=== PATIENT | male | born 1965 | race Caucasian/White ===

== ENCOUNTER 2016-09-01 23:14 | Observation (INO) | payer SELFPAY ==
[2016-09-01 23:45] VITALS: RESP 16; TEMP 97.3
[2016-09-02] MEDS ORDERED: Lidocaine 1% Inj (20ml) INFIL ONE (00:20)
[2016-09-02] MEDS ORDERED: Tetanus/Diphtheria Toxoids 0.5 ml Syringe IM ONE ×2 (00:20→00:28)
[2016-09-02] MEDS ORDERED: Lidocaine 1% Inj (20ml) ONE (00:36)
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
--- NOTE | 2016-09-02 02:00 | CT ---
EXAM: CT Orbits Without Intravenous Contrast CLINICAL HISTORY: 51 years old, male; Pain; Eye pain; Left; Patient HX: 2-17-16. Sent to [facility]; Additional info: R/O fracture left orbit, S/P fall, ETOH TECHNIQUE: Axial computed tomography images of the orbits without intravenous contrast. This CT exam was performed using one or more of the following dose reduction techniques: automated exposure control, adjustment of the mA and/or kV according to patient size, and/or use of iterative reconstruction technique. Coronal and sagittal reformatted images were created and reviewed. COMPARISON: CT - ORBITS W/O CONTRAST 07/12/2015 12:11:29 AM FINDINGS: Orbits: See below. Sinuses: See below. Bones/joints: Question minimally displaced nasal fractures. There are plates securing old bilateral anterior maxillary sinus fractures. There are fractures of the postero-lateral murguia of both maxillary sinuses although these are age indeterminate given the absence of fluid within the maxillary sinuses. There are plates securing old fractures of both lateral orbital rims and the left superior orbital rim. No evidence for acute orbital fractures. The globes and retrobulbar structures appear intact bilaterally. Mild soft tissue swelling of the left periorbital region. Soft tissues: Unremarkable. IMPRESSION: 1. Question minimally displaced nasal fractures. 2. There are plates securing old bilateral anterior maxillary sinus fractures. 3. There are fractures of the postero-lateral murguia of both maxillary sinuses although these are age indeterminate given the absence of fluid within the maxillary sinuses. 4. There are plates securing old fractures of both lateral orbital rims and the left superior orbital rim. 5. No evidence for acute orbital fractures. The globes and retrobulbar structures appear intact bilaterally. Mild soft tissue swelling of the left periorbital region.
--- NOTE | 2016-09-02 02:01 | CT ---
EXAM: CT Head Without Intravenous Contrast CLINICAL HISTORY: 51 years old, male; Pain; Headache and other: Fall; Patient HX: 07-11-15; Additional info: Head injury S/P fall TECHNIQUE: Axial computed tomography images of the head/brain without intravenous contrast. This CT exam was performed using one or more of the following dose reduction techniques: automated exposure control, adjustment of the mA and/or kV according to patient size, and/or use of iterative reconstruction technique. COMPARISON: CT - HEAD W/O CONTRAST 07/12/2015 12:09:23 AM FINDINGS: Brain: There is mild prominence of ventricles and sulci, compatible with mild atrophy. There is no evidence of intracranial hemorrhage. No evidence of acute territorial infarction. No significant white matter disease. No edema. Ventricles: See above. Bones/joints: Unremarkable. No acute fracture. Soft tissues: Unremarkable. Sinuses: Unremarkable as visualized. No acute sinusitis. Mastoid air cells: Unremarkable as visualized. No mastoid effusion. IMPRESSION: 1. No evidence for acute intracranial abnormality or displaced calvarial fracture. 2. Additional incidental and/or chronic findings as described.
[2016-09-02 05:42] VITALS: BP 104/57; PULSE 91
[2016-09-02 06:15] VITALS: O2SAT 96
== END 2016-09-02 06:11 | disposition home or self-care (01) ==
LOC: C.ER 23:14 → C.9OBSV 09-02 02:00
PROVIDERS: ADMIT Emergency Medicine; ATTEND Emergency Medicine
DX: F10.120 Alcohol abuse with intoxication, uncomplicated (principal); Y90.9 Presence of alcohol in blood, level not specified; S01.112A Laceration without foreign body of left eyelid and periocular area, initial encounter; W19.XXXA Unspecified fall, initial encounter; Z68.21 Body mass index [BMI] 21.0-21.9, adult
CPT/HCPCS: 12013; 70450; 70480; 82948; 90471; 90714; 99285; G0378

== ENCOUNTER 2016-09-03 03:57 | Observation (INO) | payer SELFPAY ==
[2016-09-03 04:13] VITALS: BP 147/85; PULSE 101; TEMP 97.5; O2SAT 97
[2016-09-03 05:38] VITALS: RESP 18
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
== END 2016-09-03 06:29 | disposition home or self-care (01) ==
LOC: C.ER 03:57 → C.9OBSV 05:06
PROVIDERS: ADMIT Emergency Medicine; ATTEND Emergency Medicine
DX: F10.120 Alcohol abuse with intoxication, uncomplicated (principal); F41.9 Anxiety disorder, unspecified; J45.909 Unspecified asthma, uncomplicated
CPT/HCPCS: 82948; G0378

== ENCOUNTER 2016-12-27 14:53 | Emergency (ER) | payer SELFPAY ==
[2016-12-27 15:00] VITALS: BMI 27.8
[2016-12-27 15:04] VITALS: TEMP 97.7
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
[2016-12-27 18:52] VITALS: BP 110/67; PULSE 86; RESP 15; O2SAT 99
== END 2016-12-27 18:59 | disposition home or self-care (01) ==
LOC: C.ER 14:53
DX: F10.10 Alcohol abuse, uncomplicated (principal)

== ENCOUNTER 2017-04-13 21:53 | Emergency (ER) | payer SELFPAY ==
[2017-04-13 21:53] VITALS: BMI 27.8
[2017-04-13 23:14] VITALS: O2SAT 97
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
[2017-04-14 02:23] VITALS: RESP 20
[2017-04-14 05:55] VITALS: BP 136/76; PULSE 96; TEMP 98.2
== END 2017-04-14 06:13 | disposition home or self-care (01) ==
LOC: C.ER 21:53
DX: F10.129 Alcohol abuse with intoxication, unspecified (principal); Y90.9 Presence of alcohol in blood, level not specified

== ENCOUNTER 2017-09-25 15:48 | Emergency (ER) | payer MEDICARE ==
[2017-09-25 15:53] VITALS: BMI 23.4
[2017-09-25 16:06] VITALS: TEMP 97.7
--- NOTE | 2017-09-25 17:44 | C.PDOC ---
History Of Present Illness 52 year old male brought to ED by EMS for alcohol intoxication. Pt is well known to ED staff with multiple prior visits for similar complaints. Denies any active physical complaints at present time. Time Seen by Provider: 09/25/17 16:02 Chief Complaint (Nursing): Medical Clearance History Per: Patient History/Exam Limitations: no limitations Onset/Duration Of Symptoms: Days Current Symptoms Are (Timing): Still Present Past Medical History Reviewed: Historical Data, Nursing Documentation, Vital Signs Vital Signs: Last Vital Signs Temp 97.7 F 09/25/17 15:59 Pulse 80 09/25/17 18:18 Resp 18 09/25/17 18:18 BP 96/50 L 09/25/17 16:49 Pulse Ox 98 09/25/17 18:18 - Medical History PMH: Asthma, Back Problems, Fractures (rt. finger) Family History: States: Unknown Family Hx - Social History Hx Tobacco Use: No Hx Alcohol Use: Yes Hx Substance Use: No - Immunization History Hx Tetanus Toxoid Vaccination: No Hx Influenza Vaccination: No Hx Pneumococcal Vaccination: No Review Of Systems Except As Marked, All Systems Reviewed And Found Negative. Constitutional: Negative for: Fever, Chills Cardiovascular: Negative for: Chest Pain, Palpitations Respiratory: Negative for: Shortness of Breath Physical Exam - Physical Exam Appears: Non-toxic, No Acute Distress Skin: Warm, Dry Head: Atraumatic, Normacephalic Eye(s): bilateral: Normal Inspection Oral Mucosa: Moist, Other (EtOH on breath) Neck: Normal ROM, Supple Chest: Symmetrical Cardiovascular: Rhythm Regular Respiratory: Normal Breath Sounds, No Rales, No Rhonchi, No Wheezing Gastrointestinal/Abdominal: Soft, No Tenderness Extremity: Normal ROM Neurological/Psych: Oriented x3 ED Course And Treatment O2 Sat by Pulse Oximetry: 97 Pulse Ox Interpretation: Normal Medical Decision Making Medical Decision Making: Pt will be signed out to Dr. Vitale at 7PM, pending sobriety. Disposition - Disposition Disposition Time: 18:51 Condition: STABLE Forms: [facility] (Turkish) - Clinical Impression Clinical Impression: Alcohol intoxication - Scribe Statement The provider has reviewed the documentation as recorded by the Scribe KP All medical record entries made by the Scribe were at my direction and personally dictated by me. I have reviewed the chart and agree that the record accurately reflects my personal performance of the history, physical exam, medical decision making, and the department course for this patient. I have also personally directed, reviewed, and agree with the discharge instructions and disposition. Physician Patient Turnover Patient Signed Over To: Alba Vitale Handoff Comments: pending sobriety, reevaluation and disposition
[2017-09-26] VITALS: RESP 18
[2017-09-26 01:58] VITALS: BP 132/71; PULSE 81; O2SAT 100
== END 2017-09-26 01:58 | disposition home or self-care (01) ==
LOC: C.ER 15:48
DX: F10.129 Alcohol abuse with intoxication, unspecified (principal)

== ENCOUNTER 2017-10-24 18:27 | Emergency (ER) | payer MEDICARE, OTHER ==
[2017-10-24 18:28] VITALS: BMI 23.4
[2017-10-24 18:40] VITALS: RESP 18
--- NOTE | 2017-10-24 19:27 | C.PDOC ---
History Of Present Illness 52 y/o male brought in by EMS for public intoxication. As per EMS patient had become somewhat agitated en route. Upon arrival patient is calm and cooperative. He admits to drinking. Patient offers no physical complaints at this time. Denies any suicidal or homicidal ideation. Time Seen by Provider: 10/24/17 18:32 Chief Complaint (Nursing): Substance Abuse History Per: Patient History/Exam Limitations: intoxication Onset/Duration Of Symptoms: Hrs Current Symptoms Are (Timing): Still Present Modifying Factor(s): Alcohol Additional History Per: EMS Past Medical History Reviewed: Historical Data, Nursing Documentation, Vital Signs Vital Signs: Last Vital Signs Temp 97.8 F 10/24/17 18:36 Pulse 89 10/24/17 22:42 Resp 18 10/24/17 22:42 BP 128/86 10/24/17 22:42 Pulse Ox 97 10/24/17 22:42 - Medical History PMH: Asthma, Back Problems, Fractures (rt. finger) Other Surgeries: Right finger partial amputation Family History: States: Unknown Family Hx - Social History Hx Tobacco Use: No Hx Alcohol Use: Yes Hx Substance Use: No - Immunization History Hx Tetanus Toxoid Vaccination: No Hx Influenza Vaccination: No Hx Pneumococcal Vaccination: No Review Of Systems Except As Marked, All Systems Reviewed And Found Negative. Psych: Positive for: Other (ETOH intoxication) Physical Exam - Physical Exam Appears: Non-toxic, No Acute Distress, Other (alcohol on breath, appears intoxicated) Skin: Normal Color, Warm, Dry Head: Atraumatic, Normacephalic Eye(s): bilateral: Normal Inspection, PERRL, EOMI Nose: Normal Oral Mucosa: Moist Neck: Normal ROM, Supple Chest: Symmetrical Cardiovascular: Rhythm Regular, No Murmur Respiratory: Normal Breath Sounds, No Accessory Muscle Use Gastrointestinal/Abdominal: Soft, No Tenderness, No Distention Extremity: Bilateral: Atraumatic, Normal Color And Temperature, Normal ROM Pulses: Left Dorsalis Pedis: Normal, Right Dorsalis Pedis: Normal Neurological/Psych: Normal Speech, Other (Alert, awake, responsive to verbal stimuli) Gait: Steady ED Course And Treatment O2 Sat by Pulse Oximetry: 97 (RA) Pulse Ox Interpretation: Normal Medical Decision Making Medical Decision Making: Assessment: Alcohol Intoxication Initial Plan: * Blood sugar POC * Pending sobriety Finger stick is 88. Patient is resting comfortably, in no acute distress. Pending clinical sobriety. 1242 am - patient ambulatory without limitations and steady gait. Discharged home to follow up with medical clinic in 2 days. Disposition Counseled Patient/Family Regarding: Studies Performed, Diagnosis, Need For Followup - Disposition Referrals: [facility] at [facility] [Outside] Disposition: HOME/ ROUTINE Disposition Time: 00:43 Condition: IMPROVED Additional Instructions: follow up with medical clinic in 2 days call to make an appointment decrease alcohol use return to ER if symptoms worsens or progress Instructions: Alcohol Abuse and Alcoholism (DC) Forms: [facility] (Belarusian), General Discharge Instructions - Clinical Impression Clinical Impression: Alcohol intoxication - Scribe Statement The provider has reviewed the documentation as recorded by the Gricelda Kearns Provider Attestation: All medical record entries made by the Gricelda were at my direction and personally dictated by me. I have reviewed the chart and agree that the record accurately reflects my personal performance of the history, physical exam, medical decision making, and the department course for this patient. I have also personally directed, reviewed, and agree with the discharge instructions and disposition.
[2017-10-25 00:48] VITALS: BP 135/81; PULSE 70; TEMP 98.2; O2SAT 96
== END 2017-10-25 01:11 | disposition home or self-care (01) ==
LOC: C.ER 18:27
DX: F10.129 Alcohol abuse with intoxication, unspecified (principal)

== ENCOUNTER 2017-10-27 18:07 | Emergency (ER) | payer MEDICARE ==
[2017-10-27 18:08] VITALS: BMI 23.4
--- NOTE | 2017-10-27 20:26 | C.PDOC ---
History Of Present Illness Patient with history of chronic ETOH abuse presents to ED requesting a place to stay and in an acute ETOH intoxication. Patient denies fever, chills, nausea, trauma or any other complaints at this time. Time Seen by Provider: 10/27/17 20:25 Chief Complaint (Nursing): Substance Abuse History Per: Patient History/Exam Limitations: no limitations Onset/Duration Of Symptoms: Hrs Current Symptoms Are (Timing): Still Present Suicide/Self Injury Attempted (Context): None Modifying Factor(s): Alcohol Severity: Mild Pain Scale Rating Of: 2 Associated Symptoms: denies: Suicidal Thoughts, Suicidal Plan Involuntary Hold By: None Recent travel outside of the [place]: No Past Medical History Reviewed: Historical Data, Nursing Documentation, Vital Signs - Medical History PMH: Asthma, Back Problems, Fractures (rt. finger) Surgical History: No Surg Hx Family History: States: No Known Family Hx - Social History Hx Tobacco Use: No Hx Alcohol Use: Yes Hx Substance Use: Yes (unk) - Immunization History Hx Tetanus Toxoid Vaccination: No Hx Influenza Vaccination: No Hx Pneumococcal Vaccination: No Review Of Systems Constitutional: Negative for: Fever, Chills Cardiovascular: Negative for: Chest Pain Respiratory: Negative for: Shortness of Breath Gastrointestinal: Negative for: Nausea Psych: Positive for: Other (ETOH intoxication). Negative for: Suicidal ideation , Withdrawal Physical Exam - Physical Exam Appears: Non-toxic, No Acute Distress Skin: Warm, Dry, No Rash, Other (Vascular stasis skin changes) Head: Normacephalic Eye(s): bilateral: PERRL, EOMI Oral Mucosa: Moist Neck: Supple Cardiovascular: Rhythm Regular Respiratory: Normal Breath Sounds, No Rales, No Rhonchi, No Wheezing Gastrointestinal/Abdominal: Soft, No Tenderness, No Guarding, No Rebound Extremity: Pedal Edema (bilateral trace), Capillary Refill (<2 seconds), No Deformity Neurological/Psych: Oriented x3 ED Course And Treatment O2 Sat by Pulse Oximetry: 100 (RA) Pulse Ox Interpretation: Normal Disposition Counseled Patient/Family Regarding: Studies Performed, Diagnosis, Need For Followup - Disposition Referrals: [facility] at [facility] [Outside] Disposition Time: 20:25 Condition: FAIR Forms: [facility] (Telugu) - Clinical Impression Clinical Impression: Alcohol intoxication - Scribe Statement The provider has reviewed the documentation as recorded by the Scribe Jonathan Eng All medical record entries made by the Scribe were at my direction and personally dictated by me. I have reviewed the chart and agree that the record accurately reflects my personal performance of the history, physical exam, medical decision making, and the department course for this patient. I have also personally directed, reviewed, and agree with the discharge instructions and disposition.
[2017-10-27 22:16] VITALS: BP 114/70; PULSE 74; RESP 18; TEMP 97; O2SAT 98
== END 2017-10-28 00:05 | disposition home or self-care (01) ==
LOC: C.ER 18:07
DX: F10.129 Alcohol abuse with intoxication, unspecified (principal)

== ENCOUNTER 2017-10-30 16:52 | Emergency (ER) | payer MEDICARE ==
[2017-10-30 16:58] VITALS: BMI 24.3
--- NOTE | 2017-10-30 17:20 | C.PDOC ---
History Of Present Illness <Julianna Soliman - Last Filed: 10/30/17 18:57> <[place] - Last Filed: 10/30/17 21:33> 52 Y/O MALE PRESENTS TO ED IN AN ACUTE ETOH INTOXICATION. PATIENT HAS MULTIPLE PRIOR RECENT ED EVALUATIONS FOR SAME. LIMITED DUE TO CLINICAL CONDITION. LIMITED DUE TO CLIN COND ETOH INTOX. MULT PRIOR RECENT ER EVAL FOR SAME ROS UTO EXAM ATRAUM PSYCH INTOX, RESPONSE TO VERBAL STIM NEURO LIMITED NARD REMAINDER NEG (Julianna Soliman) History Per: EMS History/Exam Limitations: clinical condition Onset/Duration Of Symptoms: Hrs, Gradual Current Symptoms Are (Timing): Still Present Suicide/Self Injury Attempted (Context): None Modifying Factor(s): Alcohol <Julianna Soliman - Last Filed: 10/30/17 18:57> <[place] - Last Filed: 10/30/17 21:33> Time Seen by Provider: 10/30/17 16:57 Chief Complaint (Nursing): Substance Abuse Past Medical History Reviewed: Historical Data, Nursing Documentation, Vital Signs - Medical History PMH: Asthma, Back Problems, Fractures (rt. finger) Surgical History: No Surg Hx Family History: States: No Known Family Hx - Social History Hx Tobacco Use: No Hx Alcohol Use: Yes Hx Substance Use: Yes (unk) - Immunization History Hx Tetanus Toxoid Vaccination: No Hx Influenza Vaccination: No Hx Pneumococcal Vaccination: No <Julianna Soliman - Last Filed: 10/30/17 18:57> Vital Signs: Last Vital Signs Temp 98.2 F 10/30/17 21:10 Pulse 78 10/30/17 21:10 Resp 18 10/30/17 21:10 BP 120/72 10/30/17 21:10 Pulse Ox 95 10/30/17 21:10 Review Of Systems Review Of Systems: ROS cannot be obtained secondary to pt's inabilty to answer questions. <Julianna Soliman - Last Filed: 10/30/17 18:57> Physical Exam - Physical Exam Appears: Non-toxic, No Acute Distress Skin: Warm, Dry, No Rash Head: Atraumatic Eye(s): bilateral: Normal Inspection Oral Mucosa: Moist Chest: Symmetrical Cardiovascular: Rhythm Regular Respiratory: Normal Breath Sounds, No Rales, No Rhonchi, No Wheezing Gastrointestinal/Abdominal: Soft, No Tenderness, No Guarding, No Rebound Neurological/Psych: Other (Intoxicated, response to verbal stimuli) <Julianan Soliman - Last Filed: 10/30/17 18:57> ED Course And Treatment O2 Sat by Pulse Oximetry: 94 (RA) <Julianna Soliman - Last Filed: 10/30/17 18:57> Progress - Data Reviewed Data Reviewed: Lab, Old records <Julianna Soliman - Last Filed: 10/30/17 18:57> - Time Time: 21:32 (much improved, easily arousable) <Landon Bethea - Last Filed: 10/30/17 21:33> - Re-Evaluation Re-evaluation Note: 10/30/17 18:57 EXAM UNCH PRIOR, PERSIST INTOX. NARD (Julianna Soliman) Medical Decision Making <Julianna Soliman - Last Filed: 10/30/17 18:57> <Landon Bethea - Last Filed: 10/30/17 21:33> Medical Decision Making: signed over @ 1900, pt intox pending sobriety no w/u pending pt seen and evaluated initially difficult to arouse to painful stimulus/sternal rub 0; easily arousable to sternal rub (Landon Bethea) Disposition - Disposition Disposition Time: 19:00 <Julianna Soliman - Last Filed: 10/30/17 18:57> Doctor Will See Patient In The: Office Counseled Patient/Family Regarding: Studies Performed, Diagnosis <Landon Bethea - Last Filed: 10/30/17 21:33> - Disposition Disposition: HOME/ ROUTINE Condition: GOOD Forms: [facility] (German) - Clinical Impression Clinical Impression: Homelessness, Alcohol intoxication, Malingering - Scribe Statement The provider has reviewed the documentation as recorded by the Scribe <Julianna Soliman - Last Filed: 10/30/17 18:57> <Landon Bethea - Last Filed: 10/30/17 21:33> - Scribe Statement Jonathan Eng All medical record entries made by the Scribe were at my direction and personally dictated by me. I have reviewed the chart and agree that the record accurately reflects my personal performance of the history, physical exam, medical decision making, and the department course for this patient. I have also personally directed, reviewed, and agree with the discharge instructions and disposition. (Julianna Soliman) Physician Patient Turnover Patient Signed Over To: Landon Bethea Handoff Comments: FU DISPO <Julianna Soliman - Last Filed: 10/30/17 18:57>
[2017-10-30 21:40] VITALS: BP 103/66; PULSE 80; RESP 16; TEMP 98.1; O2SAT 96
== END 2017-10-30 22:01 | disposition home or self-care (01) ==
LOC: C.ER 16:52
DX: F10.129 Alcohol abuse with intoxication, unspecified (principal); Z76.5 Malingerer [conscious simulation]; Z59.0 Homelessness

== ENCOUNTER 2017-11-02 20:48 | Emergency (ER) | payer MEDICARE ==
[2017-11-02 20:48] VITALS: BMI 24.3
--- NOTE | 2017-11-02 21:30 | C.PDOC ---
History Of Present Illness 52 year old male is brought to the ED by EMS after being found intoxicated sleeping in [facility]. Patient admits to drinking alcohol today. Patient denies SI/HI, hallucinations, CP, SOB, abdominal pain. Time Seen by Provider: 11/02/17 21:26 Chief Complaint (Nursing): Substance Abuse History Per: Patient, EMS History/Exam Limitations: intoxication Onset/Duration Of Symptoms: Hrs Current Symptoms Are (Timing): Still Present Suicide/Self Injury Attempted (Context): None Modifying Factor(s): Alcohol Associated Symptoms: denies: Depression, Suicidal Thoughts, Suicidal Plan Involuntary Hold By: None Recent travel outside of the [place]: No Additional History Per: Patient, EMS Past Medical History Reviewed: Historical Data, Nursing Documentation, Vital Signs Vital Signs: Last Vital Signs Temp 97.8 F 11/03/17 03:15 Pulse 90 11/03/17 03:15 Resp 16 11/03/17 03:15 BP 113/75 11/03/17 03:15 Pulse Ox 97 11/03/17 03:15 - Medical History PMH: Asthma, Back Problems, Fractures (rt. finger) Surgical History: No Surg Hx Family History: States: Unknown Family Hx - Social History Hx Tobacco Use: No Hx Alcohol Use: Yes Hx Substance Use: No - Immunization History Hx Tetanus Toxoid Vaccination: No Hx Influenza Vaccination: No Hx Pneumococcal Vaccination: No Review Of Systems Constitutional: Negative for: Fever, Chills Cardiovascular: Negative for: Chest Pain Respiratory: Negative for: Shortness of Breath Gastrointestinal: Negative for: Vomiting, Abdominal Pain Neurological: Negative for: Weakness, Numbness, Headache Psych: Negative for: Depression, Suicidal ideation Physical Exam - Physical Exam Appears: Non-toxic, No Acute Distress Skin: Warm, Dry Head: Normacephalic Eye(s): bilateral: Normal Inspection Oral Mucosa: Moist Neck: Supple Chest: Symmetrical Cardiovascular: Rhythm Regular Respiratory: No Rales, No Rhonchi, No Wheezing Gastrointestinal/Abdominal: Soft, No Tenderness, No Guarding, No Rebound Extremity: No Tenderness, No Swelling Extremity: Bilateral: Atraumatic, Normal Color And Temperature, Normal ROM Neurological/Psych: Oriented x3, Normal Speech Gait: Steady ED Course And Treatment O2 Sat by Pulse Oximetry: 98 (ON RA) Pulse Ox Interpretation: Normal Reevaluation Time: 05:06 Reassessment Condition: Improved Disposition Counseled Patient/Family Regarding: Studies Performed, Diagnosis, Need For Followup - Disposition Referrals: [facility] at [facility] [Outside] Disposition: HOME/ ROUTINE Disposition Time: 21:26 Condition: FAIR Instructions: Alcohol Abuse and Alcoholism (DC) Forms: [facility] (Australian) - Clinical Impression Clinical Impression: Alcohol abuse, Alcohol intoxication - Scribe Statement The provider has reviewed the documentation as recorded by the Scribe Titus Soler All medical record entries made by the Scribe were at my direction and personally dictated by me. I have reviewed the chart and agree that the record accurately reflects my personal performance of the history, physical exam, medical decision making, and the department course for this patient. I have also personally directed, reviewed, and agree with the discharge instructions and disposition.
[2017-11-03 03:16] VITALS: BP 113/75; PULSE 90; RESP 16; TEMP 97.8
[2017-11-03 05:07] VITALS: O2SAT 98
== END 2017-11-03 05:27 | disposition home or self-care (01) ==
LOC: C.ER 20:48
DX: F10.129 Alcohol abuse with intoxication, unspecified (principal)

== ENCOUNTER 2017-11-08 21:26 | Emergency (ER) | payer MEDICARE ==
[2017-11-08 21:26] VITALS: BMI 24.3
--- NOTE | 2017-11-08 21:48 | C.PDOC ---
History Of Present Illness 52 year old male presents to the ED intoxicated looking for a place to spend the night. Patient admits to drinking alcohol today. Patient denies SI/HI, hallucinations, fever, chills, CP, SOB., and contrary to the triage note, patient denies any headache Time Seen by Provider: 11/08/17 21:47 History Per: Patient History/Exam Limitations: intoxication Onset/Duration Of Symptoms: Hrs Current Symptoms Are (Timing): Still Present Suicide/Self Injury Attempted (Context): None Modifying Factor(s): Alcohol Severity: None Associated Symptoms: denies: Depression, Suicidal Thoughts, Suicidal Plan Involuntary Hold By: None Recent travel outside of the [place]: No Additional History Per: Patient Past Medical History Reviewed: Historical Data, Nursing Documentation, Vital Signs Vital Signs: Last Vital Signs Temp 97.7 F 11/09/17 04:19 Pulse 84 11/09/17 04:19 Resp 19 11/09/17 04:19 BP 101/94 H 11/09/17 04:19 Pulse Ox 96 11/09/17 04:19 - Medical History PMH: Asthma, Back Problems, Fractures (rt. finger) Surgical History: No Surg Hx Family History: States: Unknown Family Hx - Social History Hx Tobacco Use: No Hx Alcohol Use: Yes Hx Substance Use: No - Immunization History Hx Tetanus Toxoid Vaccination: No Hx Influenza Vaccination: No Hx Pneumococcal Vaccination: No Review Of Systems Constitutional: Negative for: Fever, Chills Cardiovascular: Negative for: Chest Pain, Palpitations Respiratory: Negative for: Shortness of Breath Gastrointestinal: Negative for: Nausea, Vomiting Skin: Negative for: Rash Neurological: Negative for: Confusion Psych: Negative for: Depression, Suicidal ideation Physical Exam - Physical Exam Appears: Non-toxic, No Acute Distress Skin: Warm, Dry Head: Normacephalic Eye(s): bilateral: Normal Inspection Oral Mucosa: Moist Neck: Supple Chest: Symmetrical Cardiovascular: Rhythm Regular Respiratory: No Rales, No Rhonchi, No Wheezing Gastrointestinal/Abdominal: Soft, No Tenderness Extremity: No Tenderness, No Swelling Extremity: Bilateral: Atraumatic Neurological/Psych: Oriented x3, Normal Speech Gait: With Assistance (walker) ED Course And Treatment O2 Sat by Pulse Oximetry: 98 (ON RA) Pulse Ox Interpretation: Normal Reevaluation Time: 04:34 Reassessment Condition: Improved Disposition Counseled Patient/Family Regarding: Studies Performed, Diagnosis, Need For Followup - Disposition Referrals: [facility] at [facility] [Outside] Disposition: HOME/ ROUTINE Disposition Time: 21:47 Condition: FAIR Instructions: Alcohol Abuse and Alcoholism (DC) - Clinical Impression Clinical Impression: Alcohol intoxication - Scribe Statement The provider has reviewed the documentation as recorded by the Scribe Titus Soler All medical record entries made by the Scribe were at my direction and personally dictated by me. I have reviewed the chart and agree that the record accurately reflects my personal performance of the history, physical exam, medical decision making, and the department course for this patient. I have also personally directed, reviewed, and agree with the discharge instructions and disposition.
[2017-11-09 00:50] VITALS: RESP 19
[2017-11-09 04:21] VITALS: BP 101/94; PULSE 84; TEMP 97.7
[2017-11-09 04:35] VITALS: O2SAT 98
== END 2017-11-09 05:21 | disposition home or self-care (01) ==
LOC: C.ER 21:26
DX: F10.129 Alcohol abuse with intoxication, unspecified (principal)

== ENCOUNTER 2017-11-13 18:53 | Emergency (ER) | payer MEDICARE ==
[2017-11-13] MEDS ORDERED: Naloxone 0.4 mg/ml Inj (Adult) IV ONE (18:55)
[2017-11-13 18:56] VITALS: BMI 25.8
[2017-11-13] MEDS ORDERED: Naloxone 0.4 mg/ml Inj (Adult) ONE (19:00)
--- NOTE | 2017-11-13 19:48 | C.PDOC ---
History Of Present Illness 52-year-old male is brought to the ED by ambulance for evaluation after he was found unresponsive around [facility] prior to arrival. Patient is a well- known homeless polysubstance abuser and was last evaluated in [facility] for the same on 11/08. Additional information limited secondary to patient's condition. Chief Complaint (Nursing): Altered Mental Status History Per: EMS History/Exam Limitations: Clinical Condition Onset/Duration Of Symptoms: Unknown Onset Of Symptoms: Cannot Confirm Onset Current Symptoms Are (Timing): Still Present Usual Baseline: Alert Oriented Exacerbating Factor(s): Unknown Additional History Per: EMS Past Medical History Reviewed: Historical Data, Nursing Documentation, Vital Signs Vital Signs: Last Vital Signs Temp 97.8 F 11/13/17 18:56 Pulse 80 11/13/17 18:56 Resp 16 11/13/17 18:56 BP 106/71 11/13/17 18:56 Pulse Ox 96 11/13/17 19:54 - Medical History PMH: Asthma, Back Problems, Fractures (rt. finger) Surgical History: No Surg Hx Family History: States: Unknown Family Hx - Social History Hx Tobacco Use: No Hx Alcohol Use: Yes Hx Substance Use: No - Immunization History Hx Tetanus Toxoid Vaccination: No Hx Influenza Vaccination: No Hx Pneumococcal Vaccination: No Review Of Systems Review Of Systems: ROS cannot be obtained secondary to pt's inabilty to answer questions. Physical Exam - Physical Exam Appears: Non-toxic, No Acute Distress, Other (foul-smelling, disheveled ) Skin: Normal Color, Warm, Dry, No Other (evidence of trauma) Head: Atraumatic, Normacephalic Eye(s): bilateral: Other (resisting opening of eyes for pupil examination ) Oral Mucosa: Moist Neck: Supple Chest: Symmetrical, No Deformity, No Tenderness Cardiovascular: Rhythm Regular Respiratory: Normal Breath Sounds, No Accessory Muscle Use Extremity: Normal ROM ED Course And Treatment O2 Sat by Pulse Oximetry: 96 (on RA) Pulse Ox Interpretation: Normal Progress Note: Patient showed improvement in mental status after being given 0.8mg IV Narcan. Patient is argumentative and confrontational with ED staff and is refusing to be touched for examination. Reevaluation Time: 21:23 Reassessment Condition: Improved (awake, alert, oriented) Medical Decision Making Medical Decision Making: alcohol and/or narcotics abuse. Disposition Doctor Will See Patient In The: Office Counseled Patient/Family Regarding: Studies Performed, Diagnosis - Disposition Disposition: HOME/ ROUTINE Disposition Time: 21:24 Condition: GOOD Forms: [facility] (Amharic) - Clinical Impression Clinical Impression: Substance abuse - Scribe Statement The provider has reviewed the documentation as recorded by the Scribe (Iris Kenney) Provider Attestation: All medical record entries made by the Scribe were at my direction and personally dictated by me. I have reviewed the chart and agree that the record accurately reflects my personal performance of the history, physical exam, medical decision making, and the department course for this patient. I have also personally directed, reviewed, and agree with the discharge instructions and disposition.
[2017-11-13 21:43] VITALS: BP 110/88; PULSE 87; RESP 20; TEMP 97.4; O2SAT 99
--- NOTE | 2017-11-17 12:07 | CARD ---
APPROVED REPORT EKG Measurement Heart [id number] <Conclusion> Normal sinus rhythm Normal ECG
== END 2017-11-13 21:44 | disposition home or self-care (01) ==
LOC: C.ER 18:53
DX: F19.10 Other psychoactive substance abuse, uncomplicated (principal); Z59.0 Homelessness
CPT/HCPCS: 82948; 93005; 96374; 99285; J2310

== ENCOUNTER 2017-11-24 19:05 | Emergency (ER) | payer MEDICARE ==
[2017-11-24 19:05] VITALS: BMI 25.8
--- NOTE | 2017-11-24 19:55 | C.PDOC ---
History Of Present Illness 52 year old male brought in via EMS after being found intoxicated in public. Denies homicidal ideation or suicidal ideation. Time Seen by Provider: 11/24/17 19:32 Chief Complaint (Nursing): Substance Abuse History Per: Patient History/Exam Limitations: no limitations Onset/Duration Of Symptoms: Hrs Current Symptoms Are (Timing): Still Present Suicide/Self Injury Attempted (Context): None Modifying Factor(s): Alcohol Associated Symptoms: denies: Depression, Suicidal Thoughts, Other (Homicidal ideation) Involuntary Hold By: None Recent travel outside of the [place]: No Past Medical History Reviewed: Historical Data, Nursing Documentation, Vital Signs Vital Signs: Last Vital Signs Temp 98.2 F 11/24/17 19:22 Pulse 76 11/24/17 19:22 Resp 16 11/24/17 19:22 BP 106/64 11/24/17 19:22 Pulse Ox 96 11/25/17 01:01 - Medical History PMH: Asthma, Back Problems, Fractures (rt. finger) Family History: States: Unknown Family Hx - Social History Hx Tobacco Use: No Hx Alcohol Use: Yes Hx Substance Use: No - Immunization History Hx Tetanus Toxoid Vaccination: No Hx Influenza Vaccination: No Hx Pneumococcal Vaccination: No Review Of Systems Except As Marked, All Systems Reviewed And Found Negative. Constitutional: Positive for: Other (ETOH on breath) Cardiovascular: Negative for: Chest Pain, Palpitations Respiratory: Negative for: Cough, Shortness of Breath Gastrointestinal: Negative for: Nausea, Vomiting Psych: Negative for: Suicidal ideation, Other (Homicidal ideation) Physical Exam - Physical Exam Appears: Non-toxic, Other (ETOH on breath, no sign of injury) Skin: Normal Color, Warm, Dry Head: Atraumatic, Normacephalic Eye(s): bilateral: Normal Inspection Oral Mucosa: Moist Chest: Symmetrical, No Tenderness Cardiovascular: Rhythm Regular Respiratory: Normal Breath Sounds, No Rales, No Rhonchi, No Wheezing Gastrointestinal/Abdominal: Soft, No Tenderness Extremity: Normal ROM (x4) Neurological/Psych: Oriented x3, Normal Speech ED Course And Treatment O2 Sat by Pulse Oximetry: 96 (Room air) Pulse Ox Interpretation: Normal Medical Decision Making Medical Decision Making: Assessment is ETOH intoxication, will reassess and discharge when sober. 100 am case signed out to Dr. Maldonado pending sobriety. Disposition Counseled Patient/Family Regarding: Studies Performed, Diagnosis - Disposition Referrals: [facility] at [facility] [Outside] Disposition Time: 01:00 Condition: STABLE Additional Instructions: follow up with medical clinic within 2 days call to make an appointment decrease your alcohol use return to ER if symptoms worsens or progress Instructions: Alcohol Abuse and Alcoholism (DC) Forms: [facility] (Urdu), General Discharge Instructions - Clinical Impression Clinical Impression: Alcohol intoxication - Scribe Statement The provider has reviewed the documentation as recorded by the Scribjf Hobson All medical record entries made by the Scribe were at my direction and personally dictated by me. I have reviewed the chart and agree that the record accurately reflects my personal performance of the history, physical exam, medical decision making, and the department course for this patient. I have also personally directed, reviewed, and agree with the discharge instructions and disposition. Physician Patient Turnover Patient Signed Over To: Donny Maldonado
[2017-11-25 01:47] VITALS: BP 130/76; PULSE 84; RESP 20; TEMP 98; O2SAT 99
== END 2017-11-25 01:48 | disposition home or self-care (01) ==
LOC: C.ER 19:05
DX: F10.129 Alcohol abuse with intoxication, unspecified (principal); Y90.9 Presence of alcohol in blood, level not specified

== ENCOUNTER 2017-12-20 14:53 | Emergency (ER) | payer MEDICARE ==
[2017-12-20 14:54] VITALS: BMI 25.8
--- NOTE | 2017-12-20 15:19 | C.PDOC ---
History Of Present Illness <Julianna Soliman - Last Filed: 12/20/17 19:00> <Lui Loredo - Last Filed: 12/21/17 04:58> 52 year old male brought to ED by EMS for alcohol intoxication. Pt has had multiple prior visits for similar. Otherwise, denies any active physical complaints. (Julianna Soliman) History Per: Patient History/Exam Limitations: no limitations Modifying Factor(s): Alcohol Associated Symptoms: denies: Suicidal Thoughts, Suicidal Plan Recent travel outside of the [place]: No Additional History Per: EMS <Julianna Soliman - Last Filed: 12/20/17 19:00> <Lui Loredo - Last Filed: 12/21/17 04:58> Time Seen by Provider: 12/20/17 15:18 Chief Complaint (Nursing): Substance Abuse Past Medical History Reviewed: Historical Data, Nursing Documentation, Vital Signs - Medical History PMH: Asthma, Back Problems, Fractures (rt. finger) Family History: States: Unknown Family Hx - Social History Hx Tobacco Use: No Hx Alcohol Use: Yes Hx Substance Use: No - Immunization History Hx Tetanus Toxoid Vaccination: No Hx Influenza Vaccination: No Hx Pneumococcal Vaccination: No <Julianna Soliman - Last Filed: 12/20/17 19:00> Vital Signs: Last Vital Signs Temp 97.8 F 12/21/17 04:54 Pulse 62 12/21/17 04:54 Resp 14 12/21/17 04:54 BP 146/97 H 12/21/17 04:54 Pulse Ox 99 12/21/17 04:54 Review Of Systems Except As Marked, All Systems Reviewed And Found Negative. Constitutional: Negative for: Fever, Chills Cardiovascular: Negative for: Chest Pain, Palpitations Respiratory: Negative for: Cough, Shortness of Breath Gastrointestinal: Negative for: Nausea, Vomiting, Abdominal Pain Neurological: Negative for: Headache, Dizziness Psych: Negative for: Suicidal ideation <Julianna Soliman - Last Filed: 12/20/17 19:00> Physical Exam - Physical Exam Appears: Non-toxic, No Acute Distress, Other (EtOH on breath) Skin: Normal Color, Warm, Dry Head: Atraumatic, Normacephalic Eye(s): bilateral: Normal Inspection Oral Mucosa: Moist Neck: Normal ROM, Supple Chest: Symmetrical Cardiovascular: Rhythm Regular, No Murmur Respiratory: Normal Breath Sounds, No Rales, No Rhonchi, No Wheezing Gastrointestinal/Abdominal: Soft, No Tenderness Extremity: Bilateral: Atraumatic, Normal ROM Neurological/Psych: Oriented x3 <Julianna Soliman - Last Filed: 12/20/17 19:00> ED Course And Treatment O2 Sat by Pulse Oximetry: 94 <Julianna Soliman - Last Filed: 12/20/17 19:00> Progress - Data Reviewed Data Reviewed: Old records <Julianna Soliman - Last Filed: 12/20/17 19:00> Disposition - Disposition Disposition Time: 19:00 <Julianna Soliman - Last Filed: 12/20/17 19:00> Counseled Patient/Family Regarding: Diagnosis - Disposition Disposition Time: 04:57 - POA Present On Arrival: None <Lui Loredo - Last Filed: 12/21/17 04:58> - Disposition Referrals: [facility] [Outside] Condition: STABLE Instructions: Alcohol Abuse and Alcoholism (DC) Forms: [employer] (Cayman Islander) - Clinical Impression Clinical Impression: Alcohol intoxication - Scribe Statement The provider has reviewed the documentation as recorded by the Scribe <Julianna Soliman - Last Filed: 12/20/17 19:00> <Lui Loredo - Last Filed: 12/21/17 04:58> - Scribe Statement Rocío Kenney All medical record entries made by the Scribe were at my direction and personally dictated by me. I have reviewed the chart and agree that the record accurately reflects my personal performance of the history, physical exam, medical decision making, and the department course for this patient. I have also personally directed, reviewed, and agree with the discharge instructions and disposition. (Julianna Soliman) Physician Patient Turnover Patient Signed Over To: Lui Loredo Handoff Comments: FU DISPO <JourdanJulianna - Last Filed: 12/20/17 19:00> Addendum <JourdanJulianna - Last Filed: 12/20/17 19:00> <Lui Loredo - Last Filed: 12/21/17 04:58> Addendum: 12/21/17 04:56 Patient awake, alert and oriented x 3 with steady gait. Patient stable for discharge home. (Lui Loredo)
[2017-12-21 00:16] VITALS: RESP 14
[2017-12-21 04:55] VITALS: BP 146/97; PULSE 62; TEMP 97.8; O2SAT 99
== END 2017-12-21 05:02 | disposition home or self-care (01) ==
LOC: C.ER 14:53
DX: F10.129 Alcohol abuse with intoxication, unspecified (principal); Y90.9 Presence of alcohol in blood, level not specified

== ENCOUNTER 2017-12-26 23:30 | Emergency (ER) | payer MEDICARE ==
[2017-12-26 23:30] VITALS: BMI 25.8
[2017-12-26] MEDS ORDERED: Naloxone 0.4 mg/ml Inj (Adult) ONE (23:37)
[2017-12-26] MEDS ORDERED: Naloxone 0.4 mg/ml Inj (Adult) IVP STA (23:56)
[2017-12-27 00:18] LABS: BASO % 0.6 % (0.0-2.0); EOS # 0.1 K/uL (0.0-0.7); EOS % 1.6 % (0.0-4.0); HEMOGLOBIN 14.1 g/dL (12.0-18.0); LYMPH # 2.4 K/uL (1.0-4.3); LYMPH % 33.3 % (20.0-40.0); MEAN CELL VOLUME 99.9 fL (80.0-94.0); MEAN CORPUSCULAR HEMOGLOBIN 33.8 pg (27.0-31.0); MEAN CORPUSCULAR HGB CONC 33.9 g/dL (33.0-37.0); MEAN PLATELET VOLUME 9.1 fL (7.2-11.7); MONO # 0.6 K/uL (0.0-0.8); MONO % 7.8 % (0.0-10.0); NEUT # 4.2 K/uL (1.8-7.0); NEUT % 56.7 % (50.0-75.0); RBC 4.16 Mil/uL (4.40-5.90); RED CELL DISTRIBUTION WIDTH 13.7 % (11.5-14.5); WHITE BLOOD COUNT 7.4 K/uL (4.8-10.8)
[2017-12-27 00:40] LABS: SQUAMOUS EPITHIAL 1 /hpf (0-5); URINE BILIRUBIN NEGATIVE (NEGATIVE); URINE BLOOD NEGATIVE (NEGATIVE); URINE CLARITY Clear (Clear); URINE COLOR Yellow (YELLOW); URINE GLUCOSE (UA) NORMAL (Normal); URINE LEUKOCYTE ESTERASE NEG Leu/uL (Negative); URINE PROTEIN NEGATIVE (NEGATIVE)
[2017-12-27 01:00] LABS: CALCIUM 8.8 mg/dl (8.6-10.4); GFR AFRICAN-AMERICAN > 60; GFR NON-AFRICAN AMERICAN > 60
[2017-12-27 01:02] LABS: ALB/GLOB RATIO 1.2 (1.0-2.1); ALBUMIN 4.5 g/dL (3.5-5.0); ALT/SGPT 54 U/L (21-72); AST/SGOT 74 U/L (17-59); BLOOD UREA NITROGEN 14 mg/dL (9-20)
[2017-12-27 01:12] LABS: BARBITURATES, UR NEGATIVE (NEGATIVE); BENZODIAZEPINES, UR NEGATIVE (NEGATIVE); OPIATES, UR NEGATIVE (NEGATIVE); PHENCYCLIDINE, UR NEGATIVE (NEGATIVE)
[2017-12-27 04:44] VITALS: RESP 16
--- NOTE | 2017-12-27 05:58 | C.PDOC ---
Time Seen by Provider: 12/26/17 23:37 Chief Complaint (Nursing): Substance Abuse History Per: Patient, EMS History/Exam Limitations: intoxication Onset/Duration Of Symptoms: Unknown Current Symptoms Are (Timing): Still Present Suicide/Self Injury Attempted (Context): None Modifying Factor(s): Alcohol Severity: Severe Additional History Per: Prior Records Past Medical History Reviewed: Historical Data, Nursing Documentation, Vital Signs Vital Signs: Last Vital Signs Temp 97.7 F 12/26/17 23:40 Pulse 69 12/27/17 04:43 Resp 16 12/27/17 04:43 BP 100/62 12/27/17 04:43 Pulse Ox 99 12/27/17 04:43 - Medical History PMH: Asthma, Back Problems, Fractures (rt. finger) Family History: States: Unknown Family Hx - Social History Hx Tobacco Use: No Hx Alcohol Use: Yes Hx Substance Use: No - Immunization History Hx Tetanus Toxoid Vaccination: No Hx Influenza Vaccination: No Hx Pneumococcal Vaccination: No Review Of Systems Review Of Systems: ROS cannot be obtained secondary to pt's inabilty to answer questions. Physical Exam - Physical Exam Appears: Other (Intoxicated. Arousable to painful stimuli) Skin: Normal Color, Warm, Dry Head: Atraumatic, Normacephalic Eye(s): bilateral: PERRL Neck: Normal ROM, No Midline Cervical Tenderness, No Step Off Deformity, Supple Cardiovascular: Rhythm Regular Respiratory: Normal Breath Sounds, No Accessory Muscle Use Gastrointestinal/Abdominal: Soft Extremity: Normal ROM, No Deformity Neurological/Psych: No Response To Commands, Other (Moving all extremities) Pain Response: Withdraws With Pain Gait: Unable To Assess ED Course And Treatment - Laboratory Results Result Diagrams: 12/27/17 00:11 12/27/17 00:11 Interpretation Of Abnormal: Elevated alcohol level O2 Sat by Pulse Oximetry: 99 Pulse Ox Interpretation: Normal - Radiology CXR: Interpreted by Me, Viewed By Me CXR Interpretation: Yes: No Acute Disease Progress Note: Pt is now clinically sober. AAOx3. Steady gait. He states that he just drank too much alcohol last night. Reevaluation Time: 05:59 Reassessment Condition: Improved Disposition Counseled Patient/Family Regarding: Studies Performed, Diagnosis, Need For Followup - Disposition Disposition: HOME/ ROUTINE Disposition Time: 06:00 Condition: IMPROVED Additional Instructions: Avoid alcohol. Follow up with your doctor. Return to the ER if you develop worsening of symptoms or if you have any other concerns. Instructions: Alcohol Abuse and Alcoholism (DC) Forms: [facility] (Welsh) - Clinical Impression Clinical Impression: Alcohol abuse, Alcohol intoxication
[2017-12-27 06:00] VITALS: BP 129/86; PULSE 71; TEMP 97.5
[2017-12-27 06:01] VITALS: O2SAT 99
--- NOTE | 2017-12-27 08:38 | RAD ---
Date of service: 12/27/2017 PROCEDURE: CHEST RADIOGRAPH, 1 VIEW HISTORY: Intoxicated/AMS COMPARISON: None available. FINDINGS: LUNGS: Diminished pulmonary volume crowds the bronchovascular markings at the bilateral bases. No acute infiltrate identified bilaterally. PLEURA: No pneumothorax or pleural fluid seen. CARDIOVASCULAR: Normal. OSSEOUS STRUCTURES: No significant abnormalities. VISUALIZED UPPER ABDOMEN: Normal. OTHER FINDINGS: None. IMPRESSION: Diminished pulmonary volume. No acute infiltrate pleural effusion or pneumothorax bilaterally. No pulmonary vascular congestion.
== END 2017-12-27 06:15 | disposition home or self-care (01) ==
LOC: SUPCPDRO 23:30 → C.ER 23:30
DX: F10.129 Alcohol abuse with intoxication, unspecified (principal); Y90.8 Blood alcohol level of 240 mg/100 ml or more
CPT/HCPCS: 71045; 80053; 80320; 80324; 80345; 80346; 80349; 80353; 80358; 80361; 81001; 82948; 83992; 85025; 96374; 99285; J2310

== ENCOUNTER 2017-12-31 21:39 | Emergency (ER) | payer MEDICARE ==
[2017-12-31 21:39] VITALS: BMI 25.8
--- NOTE | 2017-12-31 22:09 | C.PDOC ---
History Of Present Illness <Julianna Soliman - Last Filed: 01/01/18 00:25> <Donny Maldonado - Last Filed: 01/01/18 05:15> 52 year old male is brought to the ED by EMS for presumed alcohol intoxication. Patient has had multiple visits for the same. As per EMS, witness states patient was found laying down on the ground and appeared grossly intoxicated. Patient was talking and interactive upon EMS arrival. Patient admits to drinking earlier today and has no complaints at this time. (Julianna Soliman) History Per: Patient, EMS History/Exam Limitations: intoxication Onset/Duration Of Symptoms: Hrs Current Symptoms Are (Timing): Still Present Suicide/Self Injury Attempted (Context): None Modifying Factor(s): Alcohol Associated Symptoms: denies: Suicidal Thoughts, Suicidal Plan Involuntary Hold By: None Recent travel outside of the [place]: No Additional History Per: Patient, EMS <Julianna Soliman - Last Filed: 01/01/18 00:25> <Donny Maldonado - Last Filed: 01/01/18 05:15> Time Seen by Provider: 12/31/17 22:02 Chief Complaint (Nursing): Substance Abuse Past Medical History Reviewed: Historical Data, Nursing Documentation, Vital Signs - Medical History PMH: Asthma, Back Problems, Fractures (rt. finger) Surgical History: No Surg Hx Family History: States: Unknown Family Hx - Social History Hx Tobacco Use: No Hx Alcohol Use: Yes Hx Substance Use: No - Immunization History Hx Tetanus Toxoid Vaccination: No Hx Influenza Vaccination: No Hx Pneumococcal Vaccination: No <Julianna Soliman - Last Filed: 01/01/18 00:25> Vital Signs: Last Vital Signs Temp 97.7 F 12/31/17 21:53 Pulse 77 01/01/18 02:32 Resp 16 01/01/18 02:32 BP 100/52 L 01/01/18 02:32 Pulse Ox 99 01/01/18 02:32 Review Of Systems Psych: Positive for: Other (alcohol intoxication ) <Julianna Soliman - Last Filed: 01/01/18 00:25> Physical Exam - Physical Exam Appears: Non-toxic, No Acute Distress, Other (visibly intoxicated, poor hygiene) Skin: Normal Color, Warm, Dry Head: Atraumatic, Normacephalic Eye(s): bilateral: Normal Inspection, PERRL Oral Mucosa: Moist, Other (alcohol on breath ) Throat: Other (gag reflex present ) Neck: Supple Chest: Symmetrical, No Deformity, No Tenderness Cardiovascular: Rhythm Regular, No Murmur Respiratory: Normal Breath Sounds, No Accessory Muscle Use, No Wheezing Extremity: Normal ROM, Capillary Refill (less than 2 seconds ) Extremity: Bilateral: Atraumatic Neurological/Psych: Other (focal response to pain, grossly intoxcated ) <JourdanJulianna - Last Filed: 01/01/18 00:25> ED Course And Treatment O2 Sat by Pulse Oximetry: 98 (on RA) Pulse Ox Interpretation: Normal Progress Note: Labs from 12/27 reviewed. <JourdanJulianna - Last Filed: 01/01/18 00:25> Pulse Ox Interpretation: Normal Reevaluation Time: 05:14 Reassessment Condition: Improved <Donny Maldonado - Last Filed: 01/01/18 05:15> Progress - Data Reviewed Data Reviewed: Old records <JourdanJulianna - Last Filed: 01/01/18 00:25> Disposition - Disposition Disposition Time: 00:30 <JourdanJulianna - Last Filed: 01/01/18 00:25> Counseled Patient/Family Regarding: Studies Performed, Diagnosis, Need For Followup <Donny Maldonado - Last Filed: 01/01/18 05:15> - Disposition Referrals: [facility] [Outside] Disposition: HOME/ ROUTINE Condition: FAIR Instructions: Alcohol Abuse and Alcoholism (DC) Forms: [facility] (Georgian) - Clinical Impression Clinical Impression: Alcohol intoxication - Scribe Statement The provider has reviewed the documentation as recorded by the Scribe (Iris Kenney) <Julianna Soliman - Last Filed: 01/01/18 00:25> <Donny Maldonado - Last Filed: 01/01/18 05:15> - Scribe Statement Provider Attestation: All medical record entries made by the Scribe were at my direction and personally dictated by me. I have reviewed the chart and agree that the record accurately reflects my personal performance of the history, physical exam, medical decision making, and the department course for this patient. I have also personally directed, reviewed, and agree with the discharge instructions and disposition. (Julianna Soliman) Physician Patient Turnover Patient Signed Over To: Donny Maldonado Handoff Comments: FU SOBRIETY, DISPO <Julianna Soliman - Last Filed: 01/01/18 00:25>
[2018-01-01 05:15] VITALS: BP 116/75; PULSE 74; RESP 20; TEMP 97.8; O2SAT 98
--- NOTE | 2018-01-02 12:42 | CARD ---
APPROVED REPORT Date of service: 12/31/2017 EKG Measurement Heart [id number] <Conclusion> Normal sinus rhythm Normal ECG
== END 2018-01-01 05:37 | disposition home or self-care (01) ==
LOC: SUPCPDRO 21:39 → C.ER 21:39
DX: F10.129 Alcohol abuse with intoxication, unspecified (principal)

== ENCOUNTER 2018-01-06 22:16 | Emergency (ER) | payer MEDICARE ==
[2018-01-06 22:16] VITALS: BMI 25.8
[2018-01-06 22:28] VITALS: TEMP 98
--- NOTE | 2018-01-06 22:52 | C.PDOC ---
History Of Present Illness 52 year old male is brought to the ED for alcohol intoxication. Patient admits to drinking alcohol today and states he just wants a place to sleep. Patient denies SI/HI, hallucinations, CP, SOB. Time Seen by Provider: 01/06/18 22:51 Chief Complaint (Nursing): Substance Abuse History Per: Patient History/Exam Limitations: intoxication Onset/Duration Of Symptoms: Hrs Current Symptoms Are (Timing): Still Present Suicide/Self Injury Attempted (Context): None Modifying Factor(s): Alcohol Associated Symptoms: denies: Depression, Suicidal Thoughts, Suicidal Plan Involuntary Hold By: None Recent travel outside of the [place]: No Additional History Per: Patient Past Medical History Reviewed: Historical Data, Nursing Documentation, Vital Signs Vital Signs: Last Vital Signs Temp 98 F 01/07/18 02:30 Pulse 83 01/07/18 02:30 Resp 22 01/07/18 02:30 BP 108/73 01/07/18 02:30 Pulse Ox 95 01/07/18 02:30 - Medical History PMH: Asthma, Back Problems, Fractures (rt. finger) Surgical History: No Surg Hx Family History: States: Unknown Family Hx - Social History Hx Tobacco Use: No Hx Alcohol Use: Yes Hx Substance Use: No - Immunization History Hx Tetanus Toxoid Vaccination: No Hx Influenza Vaccination: No Hx Pneumococcal Vaccination: No Review Of Systems Constitutional: Negative for: Fever, Chills Cardiovascular: Negative for: Chest Pain Respiratory: Negative for: Shortness of Breath Gastrointestinal: Negative for: Nausea, Vomiting, Abdominal Pain Skin: Negative for: Rash Neurological: Negative for: Weakness, Numbness Psych: Negative for: Depression, Suicidal ideation Physical Exam - Physical Exam Appears: Non-toxic, No Acute Distress Skin: Warm, Dry Head: Normacephalic Eye(s): bilateral: Normal Inspection Neck: Supple Chest: Symmetrical Cardiovascular: Rhythm Regular Respiratory: No Rales, No Rhonchi, No Wheezing Gastrointestinal/Abdominal: Soft, No Tenderness, No Guarding, No Rebound Extremity: No Tenderness, No Swelling Extremity: Bilateral: Atraumatic, Normal Color And Temperature, Normal ROM Neurological/Psych: Oriented x3, Normal Speech Gait: Steady ED Course And Treatment O2 Sat by Pulse Oximetry: 99 (ON RA) Pulse Ox Interpretation: Normal Reevaluation Time: 05:17 Reassessment Condition: Improved Disposition Counseled Patient/Family Regarding: Studies Performed, Diagnosis, Need For Followup - Disposition Referrals: [facility] [Outside] Disposition: HOME/ ROUTINE Disposition Time: 22:51 Condition: FAIR Instructions: Alcohol Abuse and Alcoholism (DC) Forms: [facility] (Syrian) - Clinical Impression Clinical Impression: Alcohol intoxication - Scribe Statement The provider has reviewed the documentation as recorded by the Scribe Titus Soler All medical record entries made by the Scribe were at my direction and personally dictated by me. I have reviewed the chart and agree that the record accurately reflects my personal performance of the history, physical exam, medical decision making, and the department course for this patient. I have also personally directed, reviewed, and agree with the discharge instructions and disposition.
[2018-01-07 05:17] VITALS: O2SAT 99
[2018-01-07 05:31] VITALS: BP 140/80; PULSE 84; RESP 20
== END 2018-01-07 05:31 | disposition home or self-care (01) ==
LOC: C.ER 22:16
DX: F10.129 Alcohol abuse with intoxication, unspecified (principal)

== ENCOUNTER 2018-01-22 21:47 | Emergency (ER) | payer MEDICARE ==
[2018-01-22 21:48] VITALS: BMI 25.8
--- NOTE | 2018-01-22 23:15 | C.PDOC ---
History Of Present Illness 52 y/o male, BIB BLS, presents to the ED for public intoxication. 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 He offers no medical complaints at this time. Time Seen by Provider: 01/22/18 22:04 Chief Complaint (Nursing): Substance Abuse History Per: Patient History/Exam Limitations: no limitations Onset/Duration Of Symptoms: Hrs Current Symptoms Are (Timing): Still Present Modifying Factor(s): Alcohol Recent travel outside of the [place]: No Additional History Per: EMS Past Medical History Reviewed: Historical Data, Nursing Documentation, Vital Signs Vital Signs: Last Vital Signs Temp 98 F 01/23/18 04:18 Pulse 64 01/23/18 04:18 Resp 20 01/23/18 04:18 BP 90/51 L 01/23/18 04:18 Pulse Ox 96 01/23/18 04:18 - Medical History PMH: Asthma, Back Problems, Fractures (rt. finger) Other Surgeries: Partial amputation of right hand, third digit Family History: States: Unknown Family Hx - Social History Hx Tobacco Use: No Hx Alcohol Use: Yes Hx Substance Use: No - Immunization History Hx Tetanus Toxoid Vaccination: No Hx Influenza Vaccination: No Hx Pneumococcal Vaccination: No Review Of Systems Except As Marked, All Systems Reviewed And Found Negative. Constitutional: Negative for: Fever Psych: Negative for: Suicidal ideation Physical Exam - Physical Exam Appears: Well, Non-toxic, No Acute Distress Skin: Normal Color, Warm, Dry Head: Atraumatic, Normacephalic Eye(s): bilateral: Normal Inspection, EOMI Ear(s): Bilateral: Normal Oral Mucosa: Moist Neck: Supple Chest: Symmetrical Cardiovascular: Rhythm Regular, No Murmur Respiratory: Normal Breath Sounds, No Rales, No Rhonchi, No Wheezing Gastrointestinal/Abdominal: No Tenderness, No Distention Extremity: Normal ROM Neurological/Psych: Normal Speech, Normal Sensation, Normal Reflexes ED Course And Treatment O2 Sat by Pulse Oximetry: 100 (RA) Pulse Ox Interpretation: Normal Medical Decision Making Medical Decision Making: Impression: 52 y/o male, BIB BLS, for public intoxication Plan: -Glucose Lab Disposition - Disposition Referrals: [facility] [Outside] [facility] [Outside] Disposition: HOME/ ROUTINE Disposition Time: 23:00 Condition: IMPROVED Additional Instructions: JOSE ALBERTO ALBERTO, thank you for letting us take care of you today. Your provider was Robinson Gee DO and you were treated for SUBSTANCE ABUSE. The emergency medical care you received today was directed at your acute symptoms. If you were prescribed any medication, please fill it and take as directed. It may take several days for your symptoms to resolve. Return to the Emergency Department if your symptoms worsen, do not improve, or if you have any other problems. Please contact your doctor or call one of the physicians/clinics you have been referred to that are listed on the Patient Visit Information form that is included in your discharge packet. Bring any paperwork you were given at discharge with you along with any medications you are taking to your follow up visit. Our treatment cannot replace ongoing medical care by a primary care provider outside of the emergency department. Thank you for allowing the [facility] team to be part of your care today. Do not drink too much alcohol at one time. Follow up with your doctor or the clinic for outpatient care. Instructions: Alcohol Use - When Is Drinking a Problem? Forms: [employer] (Polish) - Clinical Impression Clinical Impression: Alcohol intoxication - PA / [employer] CLAIMS ADJUSTER / Resident Statement / has reviewed & agrees with the documentation as recorded. - Scribe Statement The provider has reviewed the documentation as recorded by the Scribe (Clarice Gee) Provider Attestation: All medical record entries made by the Scribe were at my direction and personally dictated by me. I have reviewed the chart and agree that the record accurately reflects my personal performance of the history, physical exam, medical decision making, and the department course for this patient. I have also personally directed, reviewed, and agree with the discharge instructions and disposition.
[2018-01-23 00:11] VITALS: TEMP 98
[2018-01-23 04:19] VITALS: BP 90/51; PULSE 64; RESP 20
[2018-01-23 05:32] VITALS: O2SAT 100
== END 2018-01-23 04:18 | disposition home or self-care (01) ==
LOC: C.ER 21:47
DX: F10.129 Alcohol abuse with intoxication, unspecified (principal); Y90.9 Presence of alcohol in blood, level not specified

== ENCOUNTER 2018-02-25 18:42 | Emergency (ER) | payer MEDICARE ==
[2018-02-25 18:42] VITALS: BMI 25.8
[2018-02-25 18:59] VITALS: TEMP 97.4
--- NOTE | 2018-02-25 19:16 | C.PDOC ---
History Of Present Illness 52 year old male brought in via EMS for public intoxication. Patient complains of chronic leg pain which is baseline for him based on prior visits. Denies other complaints at this time. Chief Complaint (Nursing): Lower Extremity Problem/Injury History Per: Patient History/Exam Limitations: no limitations Onset/Duration Of Symptoms: Hrs Current Symptoms Are (Timing): Still Present Suicide/Self Injury Attempted (Context): None Modifying Factor(s): Alcohol Associated Symptoms: denies: Depression, Suicidal Thoughts Involuntary Hold By: None Recent travel outside of the [place]: No Past Medical History Reviewed: Historical Data, Nursing Documentation, Vital Signs Vital Signs: Last Vital Signs Temp 97.4 F L 02/25/18 18:56 Pulse 74 02/25/18 18:56 Resp 18 02/25/18 18:56 BP 115/68 02/25/18 18:56 Pulse Ox 98 02/25/18 18:56 - Medical History PMH: Anxiety, Arthritis (BACK; R FX 3RD FINGER), Asthma, Back Problems, Fr actures (rt. finger), Seizures Family History: States: Unknown Family Hx - Social History Hx Tobacco Use: No Hx Alcohol Use: Yes Hx Substance Use: No - Immunization History Hx Tetanus Toxoid Vaccination: No Hx Influenza Vaccination: No Hx Pneumococcal Vaccination: No Review Of Systems Constitutional: Negative for: Fever, Chills Cardiovascular: Negative for: Chest Pain, Palpitations Respiratory: Negative for: Cough, Shortness of Breath Gastrointestinal: Negative for: Nausea, Vomiting Musculoskeletal: Positive for: Leg Pain (Chronic) Neurological: Negative for: Weakness, Numbness Physical Exam - Physical Exam Appears: Non-toxic, Other (ETOH on breath, disheveled, foul smelling) Skin: Normal Color, Warm, Dry Head: Atraumatic, Normacephalic Eye(s): bilateral: Normal Inspection Oral Mucosa: Moist Neck: Normal, Supple Chest: Symmetrical, No Tenderness Cardiovascular: Rhythm Regular Respiratory: Normal Breath Sounds, No Rales, No Rhonchi, No Wheezing Gastrointestinal/Abdominal: Soft, No Tenderness Extremity: Other (Minor leg edema, no wounds) Neurological/Psych: Oriented x3, Normal Speech ED Course And Treatment O2 Sat by Pulse Oximetry: 98 (Room air) Pulse Ox Interpretation: Normal Medical Decision Making Medical Decision Making: peristent ETOH abuse no acute issue no neurological changes. Disposition Doctor Will See Patient In The: Office Counseled Patient/Family Regarding: Studies Performed, Diagnosis - Disposition Referrals: [facility] [Outside] [facility] [Outside] [facility] [Outside] [facility] [Outside] [facility] [Outside] [facility] [Outside] Disposition: HOME/ ROUTINE Disposition Time: 19:16 Condition: GOOD Additional Instructions: seek nightly fci placement seek AA Seek outpatient psych services Instructions: Alcohol Abuse and Alcoholism (DC) Forms: [facility] (Kazakh) - Clinical Impression Clinical Impression: Malingering, Homelessness, Alcohol abuse - Scribe Statement The provider has reviewed the documentation as recorded by the Scribe Ahmet Hobson All medical record entries made by the Scribe were at my direction and personally dictated by me. I have reviewed the chart and agree that the record accurately reflects my personal performance of the history, physical exam, medical decision making, and the department course for this patient. I have also personally directed, reviewed, and agree with the discharge instructions and disposition.
[2018-02-25 19:37] VITALS: BP 108/72; PULSE 68; RESP 14; O2SAT 97
== END 2018-02-25 19:34 | disposition home or self-care (01) ==
LOC: C.ER 18:42
DX: F10.10 Alcohol abuse, uncomplicated (principal); Y90.9 Presence of alcohol in blood, level not specified; Z76.5 Malingerer [conscious simulation]; Z59.0 Homelessness

== ENCOUNTER 2018-02-26 01:59 | Emergency (ER) | payer MEDICARE ==
[2018-02-26 01:59] VITALS: BMI 25.8
[2018-02-26 02:14] VITALS: TEMP 98.3
--- NOTE | 2018-02-26 04:21 | C.PDOC ---
History Of Present Illness 52 year old male presents to the ER via EMS for public intoxication. Denies physical complaints at this time. Time Seen by Provider: 02/26/18 02:03 Chief Complaint (Nursing): Substance Abuse History Per: Patient, EMS History/Exam Limitations: no limitations Onset/Duration Of Symptoms: Hrs Current Symptoms Are (Timing): Still Present Suicide/Self Injury Attempted (Context): None Modifying Factor(s): Alcohol Associated Symptoms: denies: Depression, Suicidal Thoughts Involuntary Hold By: None Recent travel outside of the [place]: No Past Medical History Reviewed: Historical Data, Nursing Documentation, Vital Signs Vital Signs: Last Vital Signs Temp 98.3 F 02/26/18 02:05 Pulse 62 02/26/18 02:05 Resp 20 02/26/18 02:05 BP 114/75 02/26/18 02:05 Pulse Ox 98 02/26/18 02:05 - Medical History PMH: Anxiety, Arthritis (BACK; R FX 3RD FINGER), Asthma, Back Problems, Fractures (rt. finger), Seizures Family History: States: Unknown Family Hx - Social History Hx Tobacco Use: No Hx Alcohol Use: Yes Hx Substance Use: No - Immunization History Hx Tetanus Toxoid Vaccination: No Hx Influenza Vaccination: No Hx Pneumococcal Vaccination: No Review Of Systems Constitutional: Negative for: Fever, Chills Cardiovascular: Negative for: Chest Pain, Palpitations Respiratory: Negative for: Cough, Shortness of Breath Gastrointestinal: Negative for: Nausea, Vomiting Neurological: Negative for: Weakness, Numbness Physical Exam - Physical Exam Appears: Non-toxic, Other (ETOH on breath, no sign of injury) Skin: Normal Color, Warm, Dry Head: Atraumatic, Normacephalic Eye(s): bilateral: Normal Inspection Oral Mucosa: Moist Chest: Symmetrical, No Tenderness Cardiovascular: Rhythm Regular Respiratory: Normal Breath Sounds, No Rales, No Rhonchi, No Wheezing Gastrointestinal/Abdominal: Soft, No Tenderness Back: No CVA Tenderness Neurological/Psych: Oriented x3, Normal Speech ED Course And Treatment O2 Sat by Pulse Oximetry: 98 (Room air) Pulse Ox Interpretation: Normal Medical Decision Making Medical Decision Making: Patient with acute ETOH intoxication pending sobriety. On reevaluation, patient is resting comfortably in the ER in no acute distress, ambulatory with steady gait, vitals are stable, patient stable for discharge. Disposition - Disposition Referrals: [facility] at [facility] [Outside] Disposition: HOSPITALIZED Disposition Time: 06:02 (3) Condition: STABLE Additional Instructions: Return if worsened. Instructions: Alcohol Use - When Is Drinking a Problem? Forms: [facility] (Mohawk) - Clinical Impression Clinical Impression: Alcohol intoxication - Scribe Statement The provider has reviewed the documentation as recorded by the Scribe Ahmet Hobson All medical record entries made by the Scribe were at my direction and personally dictated by me. I have reviewed the chart and agree that the record a ccurately reflects my personal performance of the history, physical exam, medical decision making, and the department course for this patient. I have also personally directed, reviewed, and agree with the discharge instructions and disposition.
[2018-02-26 04:51] VITALS: BP 110/60; PULSE 80; RESP 14
[2018-02-26 06:04] VITALS: O2SAT 98
== END 2018-02-26 06:16 | disposition home or self-care (01) ==
LOC: C.ER 01:59
DX: F10.129 Alcohol abuse with intoxication, unspecified (principal)

== ENCOUNTER 2018-02-28 18:48 | Emergency (ER) | payer MEDICARE ==
[2018-02-28 18:49] VITALS: BMI 25.8
[2018-02-28 19:08] VITALS: TEMP 97.8
[2018-02-28] MEDS ORDERED: Sodium Chloride 0.9% 1,000 ML IV ONE (19:18)
--- NOTE | 2018-02-28 19:22 | C.PDOC ---
Chief Complaint (Nursing): Substance Abuse Past Medical History Vital Signs: Last Vital Signs Temp 97.8 F 02/28/18 19:06 Pulse 89 02/28/18 19:06 Resp 16 02/28/18 19:06 BP 114/68 02/28/18 19:06 Pulse Ox 95 02/28/18 19:06 - Medical History PMH: Anxiety, Arthritis (BACK; R FX 3RD FINGER), Asthma, Back Problems, Fractures (rt. finger), Seizures Family History: States: Unknown Family Hx - Social History Hx Tobacco Use: No Hx Alcohol Use: Yes Hx Substance Use: No - Immunization History Hx Tetanus Toxoid Vaccination: No Hx Influenza Vaccination: No Hx Pneumococcal Vaccination: No ED Course And Treatment O2 Sat by Pulse Oximetry: 95 Disposition - Disposition Referrals: Non [facility] Provider, [Primary Care Provider] -
--- NOTE | 2018-02-28 19:24 | C.PDOC ---
History Of Present Illness 52 year old male is brought to the ED by EMS for public intoxication. Patient is also c/o inability to move both legs that has been on and off for the past year and a half. Patient has PMHx of chronic back pain. Patient denies fever, chills, CP, palpitations, SOB, trauma, injury, fall, SI/HI, hallucinations. Chief Complaint (Nursing): Substance Abuse History Per: Patient, EMS History/Exam Limitations: intoxication Onset/Duration Of Symptoms: Intermittent Episodes (year and half) Current Symptoms Are (Timing): Still Present Suicide/Self Injury Attempted (Context): None Modifying Factor(s): Alcohol Associated Symptoms: denies: Depression, Suicidal Thoughts, Suicidal Plan Recent travel outside of the [place]: No Additional History Per: Patient, EMS Past Medical History Reviewed: Historical Data, Nursing Documentation, Vital Signs Vital Signs: Last Vital Signs Temp 97.8 F 02/28/18 19:06 Pulse 89 02/28/18 19:06 Resp 16 02/28/18 19:06 BP 114/68 02/28/18 19:06 Pulse Ox 95 02/28/18 19:06 - Medical History PMH: Anxiety, Arthritis (BACK; R FX 3RD FINGER), Asthma, Back Problems, Fractures (rt. finger), Seizures Surgical History: No Surg Hx Family History: States: Unknown Family Hx - Social History Hx Tobacco Use: No Hx Alcohol Use: Yes Hx Substance Use: No - Immunization History Hx Tetanus Toxoid Vaccination: No Hx Influenza Vaccination: No Hx Pneumococcal Vaccination: No Review Of Systems Constitutional: Negative for: Fever, Chills Cardiovascular: Negative for: Chest Pain Respiratory: Negative for: Shortness of Breath Gastrointestinal: Negative for: Nausea, Vomiting, Abdominal Pain Musculoskeletal: Positive for: Back Pain, Leg Pain Skin: Negative for: Rash Neurological: Negative for: Weakness, Numbness Psych: Negative for: Depression, Suicidal ideation Physical Exam - Physical Exam Appears: Non-toxic, No Acute Distress, Other (slight AOB) Skin: Normal Color, Warm, Dry Head: Atraumatic, Normacephalic Eye(s): bilateral: Normal Inspection Neck: Normal ROM, Supple Chest: Symmetrical Cardiovascular: Rhythm Regular Respiratory: Normal Breath Sounds, No Rales, No Rhonchi, No Wheezing Gastrointestinal/Abdominal: Soft, No Tenderness, No Guarding, No Rebound Back: Other (lower back tenderness) Extremity: No Normal ROM (inability to move both legs), Pedal Edema (+2 bilaterally ), Capillary Refill (< 2 seconds) Pulses: Left Dorsalis Pedis: Normal, Right Dorsalis Pedis: Normal Neurological/Psych: Oriented x3, Normal Speech, Normal Cognition, Normal Motor, Normal Sensation Gait: Unable To Assess ED Course And Treatment - Laboratory Results Result Diagrams: 02/28/18 19:34 02/28/18 19:34 O2 Sat by Pulse Oximetry: 95 (ON RA) Pulse Ox Interpretation: Normal - CT Scan/US CT lumbar Other Rad Studies (CT/US): Read By Radiologist, Radiology Report Reviewed CT/US Interpretation: History: Low back pain. Bilateral lower extremity weakness. Comparison: None. Technique: CT lumbosacral spine. CT examination of lumbosacral spine was obtained with images reconstructed in the coronal and sagittal planes. There is a satisfactory alignment of the vertebral bodies. Vertebral body stature is maintained throughout. There is no acute fracture. L1-L2 level no disc herniation. L2-3 level no disc herniation. L3-L4 level no disc herniation. L4-L5 level small broad-based posterior disc bulge. Narrowing of the neural foramen appeared mild spinal canal stenosis. L5-S1 level disc desiccation and disc space narrowing with a small broad-based posterior disc he rniation with narrowing of the neural foramina and mild spinal canal stenosis. Spinal cord appears normal. Impression: Degenerative changes lower lumbar spine. Mild broad-based posterior disc bulge L4-L5 level and small broad-based posterior disc herniation L5-S1 level. Narrowing of the neural foramina and mild spinal canal stenosis at the L4-L5 and L5-S1 levels. . Electronically signed on Feb 28, 2018 8:58:31 PM EDT by: Benigno Malhotra M.D., Certified by [employer], Diagnostic Radiology. Medical Decision Making Medical Decision Making: Plan: * CT lumbar * Labs * IV fluids * UA Disposition - Disposition Referrals: Non [facility] Provider, [Primary Care Provider] - Disposition: HOME/ ROUTINE Disposition Time: 05:20 Condition: STABLE Prescriptions: Naproxen 375 mg PO TIDPC #20 tablet Instructions: Low Back Pain (DC), Alcohol Abuse and Alcoholism (DC), Spinal St enosis (DC) Forms: [email or web address] (Syriac) - POA Present On Arrival: None - Clinical Impression Clinical Impression: Alcohol intoxication, Leg pain, bilateral, Spinal stenosis of lumbosacral region - Scribe Statement The provider has reviewed the documentation as recorded by the Scribe Titus Soler All medical record entries made by the Scribe were at my direction and personally dictated by me. I have reviewed the chart and agree that the record accurately reflects my personal performance of the history, physical exam, medical decision making, and the department course for this patient. I have also personally directed, reviewed, and agree with the discharge instructions and disposition.
[2018-02-28 19:38] LABS: BASO # 0.1 K/uL (0.0-0.2); BASO % 1.1 % (0.0-2.0); EOS # 0.2 K/uL (0.0-0.7); EOS % 2.5 % (0.0-4.0); HEMOGLOBIN 12.7 g/dL (12.0-18.0); LYMPH # 2.4 K/uL (1.0-4.3); MEAN CELL VOLUME 98.9 fL (80.0-94.0); MEAN CORPUSCULAR HEMOGLOBIN 34.1 pg (27.0-31.0); MEAN CORPUSCULAR HGB CONC 34.4 g/dL (33.0-37.0); MEAN PLATELET VOLUME 8.2 fL (7.2-11.7); MONO # 0.6 K/uL (0.0-0.8); MONO % 9.6 % (0.0-10.0); NEUT % 48.8 % (50.0-75.0); NRBC % 0.1 % (0.0-2.0); RBC 3.73 Mil/uL (4.40-5.90); RED CELL DISTRIBUTION WIDTH 14.4 % (11.5-14.5)
[2018-02-28 19:42] LABS: URINE BILIRUBIN NEGATIVE (NEGATIVE); URINE CLARITY Clear (Clear); URINE COLOR Straw (YELLOW); URINE GLUCOSE (UA) NORMAL (Normal); URINE LEUKOCYTE ESTERASE NEG Leu/uL (Negative); URINE PROTEIN NEGATIVE (NEGATIVE); URINE UROBILINOGEN NORMAL mg/dL (0.2-1.0)
[2018-02-28 19:47] LABS: WHITE BLOOD COUNT 6.2 K/uL (4.8-10.8)
[2018-02-28 19:55] LABS: ALB/GLOB RATIO 1.1 (1.0-2.1); ALBUMIN 4.2 g/dL (3.5-5.0); ALT/SGPT 44 U/L (21-72); AST/SGOT 63 U/L (17-59); BARBITURATES, UR NEGATIVE (NEGATIVE); BENZODIAZEPINES, UR NEGATIVE (NEGATIVE); BLOOD UREA NITROGEN 12 mg/dL (9-20); CALCIUM 9.4 mg/dl (8.6-10.4); GFR NON-AFRICAN AMERICAN > 60; OPIATES, UR NEGATIVE (NEGATIVE); PHENCYCLIDINE, UR NEGATIVE (NEGATIVE)
[2018-02-28] MEDS: Folic Acid 1 MG, Thiamine 100 MG, Multivitamin (MVI) 10 ML in Dextrose 5% In Water 1,00... IV SCH (20:00)
[2018-02-28 20:04] LABS: URINE BLOOD NEGATIVE (NEGATIVE)
[2018-02-28] MEDS ORDERED: Naproxen 550 mg Tab PO STA (21:38)
[2018-03-01] MEDS: Folic Acid 1 MG, Thiamine 100 MG, Multivitamin (MVI) 10 ML in Dextrose 5% In Water 1,00... IV SCH (03:36)
[2018-03-01 05:31] VITALS: BP 145/72; PULSE 87; RESP 17; O2SAT 98
--- NOTE | 2018-03-01 12:29 | CT ---
Date of service: 02/28/2018 PROCEDURE: CT Lumbar Spine without contrast HISTORY: Low back pain-lower extremities weakness COMPARISON: None available. TECHNIQUE: Contiguous helical/transaxial sections of the lumbar spine without the use of intravenous contrast. Coronal and sagittal reformatted images were created and reviewed. Radiation dose: Total exam DLP = 672.31 mGy-cm. This CT exam was performed using one or more of the following dose reduction techniques: Automated exposure control, adjustment of the mA and/or kV according to patient size, and/or use of iterative reconstruction technique.. FINDINGS: VERTEBRAE: No acute compression fractures no retropulsed fragments. Vertebral body normal stature.. Slight straightening of the normal lumbar lordosis however vertebral bodies otherwise exhibit normal alignment. Facets normally aligned. DISCS/SPINAL CANAL/NEURAL FORAMINA: L1-2: Disc space height maintained.. Minimal broad-based disc bulge flattens the ventral surface of the thecal sac. The overall central canal is marginal to slightly narrowed. L2-3: Disc space height maintained. No disc herniation or significant disc bulge. Facets are slightly prominent. There is mild flattening of the ventral surface of the thecal sac however the overall central canal appears adequate L3-4: There is relatively adequate disc height. Small broad-based disc bulge also extends slightly into the proximal inferior margins of both exit foramina.. The there is mild bilateral lateral recess stenosis and compressive effects on the ventral surface of thecal sac. Central canal measured at midline is marginal to adequate. Facets are mildly hypertrophic and flavum buckled with mild compressive effects on the posterolateral borders of the thecal sac.. Exit foramina are marginal to minimally narrowed more so on the right side. L4-5: There is mild posterior disc space narrowing with small broad-based disc bulge ridge complex that also extends into the proximal inferior margins of both exit foramina. There is mild bilateral lateral recess narrowing and marginal to minimally narrowed central canal. Facet joints are hypertrophic flavum are buckled with compressive effects on the posterolateral borders of the thecal sac as well. Exit foramina appear narrowed bilaterally. L5-S1: There is disc space narrowing, more so along the posterior disc margin with broad-based disc bulge ridge complex extends into the proximal inferior margins of both exit foramina and reaches the ventral surfaces of the descending S1 nerve roots... The overall central bony canal however is adequate. Facets are mildly hypertrophic. The exit foramina appear adequate. PARASPINAL SOFT TISSUES: Unremarkable. OTHER FINDINGS: Prominent bilateral extrarenal pelves possibly due to marked urinary bladder distention... IMPRESSION: No acute fractures. Mild multilevel degenerative spondylosis most notably affecting the L5-S1 and L4-L5 levels as above.
== END 2018-03-01 05:29 | disposition home or self-care (01) ==
LOC: C.ER 18:48 → SUPCPDRO 18:48 → C.ER 03-01 05:29
DX: F10.129 Alcohol abuse with intoxication, unspecified (principal); Y90.7 Blood alcohol level of 200-239 mg/100 ml; M48.07 Spinal stenosis, lumbosacral region; M79.605 Pain in left leg; M79.604 Pain in right leg
CPT/HCPCS: 72131; 80053; 80320; 80324; 80345; 80346; 80349; 80353; 80358; 80361; 81001; 82948; 83735; 83992; 84100; 85025; 96360; 96361; 99284; J3411; J7070

== ENCOUNTER 2018-03-01 22:42 | Emergency (ER) | payer MEDICARE ==
[2018-03-01 22:42] VITALS: BMI 25.8
--- NOTE | 2018-03-01 23:52 | C.PDOC ---
History Of Present Illness 52 y/o male presents to the ED requesting a place to stay the night. Also complaining of chronic back pain. Seen here yesterday for similar complaints, and had a CT showing some DJD of the lumbar spine, narrowing of the neuroforamina, and mild spinal canal stenosis at L4-L5 and L5-S1. Patient is ambulating with a cane. He denies any new trauma or fall. On arrival patient has (+) alcohol on breath. Patient is well known to this ED for chronic alcohol abuse. Time Seen by Provider: 03/01/18 23:51 Chief Complaint (Nursing): Back Pain History Per: Patient History/Exam Limitations: no limitations Onset/Duration Of Symptoms: Days Current Symptoms Are (Timing): Still Present Quality Of Discomfort: "Pain" Severity: Mild Pain Scale Rating Of: 4 Previous Symptoms: Chronic Pain (back) Associated Symptoms: None Past Medical History Reviewed: Historical Data, Nursing Documentation, Vital Signs Vital Signs: Last Vital Signs Temp 97.5 F L 03/01/18 22:54 Pulse 68 03/01/18 22:54 Resp 18 03/01/18 22:54 BP 120/77 03/01/18 22:54 Pulse Ox 98 03/01/18 22:54 - Medical History PMH: Anxiety, Arthritis (BACK; R FX 3RD FINGER), Asthma, Back Problems, Fractures (rt. finger), Seizures Family History: States: Unknown Family Hx - Social History Hx Tobacco Use: No Hx Alcohol Use: Yes Hx Substance Use: No - Immunization History Hx Tetanus Toxoid Vaccination: No Hx Influenza Vaccination: No Hx Pneumococcal Vaccination: No Review Of Systems Constitutional: Negative for: Fever, Chills Cardiovascular: Negative for: Chest Pain Respiratory: Negative for: Shortness of Breath Gastrointestinal: Negative for: Nausea, Vomiting, Abdominal Pain Genitourinary: Negative for: Dysuria, Frequency, Hematuria Musculoskeletal: Positive for: Back Pain Neurological: Negative for: Weakness, Numbness Physical Exam - Physical Exam Appears: Non-toxic, No Acute Distress Skin: Warm, Dry Head: Normacephalic Eye(s): bilateral: Normal Inspection Neck: Trachea Midline, Supple Chest: Symmetrical Cardiovascular: Rhythm Regular Respiratory: No Rales, No Rhonchi, No Wheezing Gastrointestinal/Abdominal: Soft, No Tenderness, No Distention Back: No CVA Tenderness, No Vertebral Tenderness, Paraspinal Tenderness (to paralumbar region) Extremity: Bilateral: Atraumatic, Normal Color And Temperature Pulses: Left Dorsalis Pedis: Normal, Right Dorsalis Pedis: Normal Neurological/Psych: Oriented x3 Gait: Steady (with cane) ED Course And Treatment O2 Sat by Pulse Oximetry: 98 (RA) Pulse Ox Interpretation: Normal Progress Note: On examination, patient resting comfortably in stretcher. Will monitor in the ED and discharge when clinically sober. Reevaluation Time: 05:17 Reassessment Condition: Improved Disposition Counseled Patient/Family Regarding: Studies Performed, Diagnosis, Need For Followup - Disposition Referrals: at [facility] [Outside] Disposition: HOME/ ROUTINE Disposition Time: 23:52 Condition: FAIR Instructions: Alcohol Abuse and Alcoholism (DC) Forms: [employer] (Icelandic) - Clinical Impression Clinical Impression: Alcohol abuse, Chronic back pain - Scribe Statement The provider has reviewed the documentation as recorded by the Gricelda Kearns Provider Attestation: All medical record entries made by the Martinibjf were at my direction and personally dictated by me. I have reviewed the chart and agree that the record accurately reflects my personal performance of the history, physical exam, medical decision making, and the department course for this patient. I have also personally directed, reviewed, and agree with the discharge instructions and disposition.
[2018-03-02 03:19] VITALS: BP 100/62; PULSE 91; RESP 16; TEMP 98
[2018-03-02 05:21] VITALS: O2SAT 98
== END 2018-03-02 05:23 | disposition home or self-care (01) ==
LOC: SUPCPDRO 22:42 → C.ER 22:42
DX: F10.10 Alcohol abuse, uncomplicated (principal); M54.9 Dorsalgia, unspecified; G89.29 Other chronic pain

== ENCOUNTER 2018-03-02 18:22 | Emergency (ER) | payer MEDICARE ==
[2018-03-02 18:22] VITALS: BMI 25.8
[2018-03-02] MEDS ORDERED: Naproxen 550 mg Tab PO STA (19:31)
[2018-03-02] MEDS ORDERED: Naproxen 550 mg Tab PO ONE (19:38)
--- NOTE | 2018-03-02 19:39 | C.PDOC ---
History Of Present Illness 52 y/o male presents to the ED complaining of chronic back pain and inability to move his legs. Patient states he is unable to walk, however witnessed ambulating in the ED. Has not taken anything for pain prior to arrival. Patient admits to drinking 1 beer prior to arrival. On arrival patient is speaking clearly, in full sentences. Otherwise he denies any chest pain, SOB, nausea, vomiting, fever, numbness, tingling, or other complaints. Time Seen by Provider: 03/02/18 19:19 Chief Complaint (Nursing): Lower Extremity Problem/Injury History Per: Patient History/Exam Limitations: no limitations Onset/Duration Of Symptoms: Days Current Symptoms Are (Timing): Still Present Past Medical History Reviewed: Historical Data, Nursing Documentation, Vital Signs Vital Signs: Last Vital Signs Temp 97.8 F 03/02/18 18:26 Pulse 80 03/02/18 18:26 Resp 20 03/02/18 18:26 BP 150/74 03/02/18 18:26 Pulse Ox 97 03/02/18 18:26 - Medical History PMH: Anxiety, Arthritis (BACK; R FX 3RD FINGER), Asthma, Back Problems, Fractures (right hand), Seizures Family History: States: Unknown Family Hx - Social History Hx Tobacco Use: No Hx Alcohol Use: Yes Hx Substance Use: No - Immunization History Hx Tetanus Toxoid Vaccination: No Hx Influenza Vaccination: No Hx Pneumococcal Vaccination: No Review Of Systems Constitutional: Negative for: Fever, Chills Cardiovascular: Negative for: Chest Pain Respiratory: Negative for: Cough, Shortness of Breath Gastrointestinal: Negative for: Nausea, Vomiting Musculoskeletal: Positive for: Back Pain (chronic) Neurological: Positive for: Other ("unable to walk"). Negative for: Weakness, Numbness, Incoordination Physical Exam - Physical Exam Appears: Non-toxic, No Acute Distress Skin: Normal Color, Warm, Dry Head: Atraumatic, Normacephalic Eye(s): bilateral: Normal Inspection Oral Mucosa: Moist Neck: Normal ROM, Supple Chest: Symmetrical Cardiovascular: Rhythm Regular, No Murmur Respiratory: Normal Breath Sounds, No Accessory Muscle Use Gastrointestinal/Abdominal: Soft, No Tenderness, No Distention Back: No Vertebral Tenderness, Paraspinal Tenderness (to paralumbar regions) Extremity: Bilateral: Atraumatic, Normal Color And Temperature, Normal ROM Pulses: Left Dorsalis Pedis: Normal, Right Dorsalis Pedis: Normal Neurological/Psych: Oriented x3, Normal Speech, Normal Motor, Normal Sensation Gait: Steady ED Course And Treatment O2 Sat by Pulse Oximetry: 97 (RA) Pulse Ox Interpretation: Normal Progress Note: Naproxen PO given for pain control. Patient offers no acute complaints. On reeval, patient is resting comfortably in stretcher and remains afebrile, AAOx3, ambulatory with steady gait. Patient is stable for d/c home. Disposition Counseled Patient/Family Regarding: Diagnosis, Need For Followup - Disposition Referrals: [facility] [Outside] [facility] [Outside] Disposition: HOME/ ROUTINE Disposition Time: 21:22 Condition: STABLE Instructions: Chronic Pain (DC) Forms: [employer] (Omani) - Clinical Impression Clinical Impression: Chronic leg pain, Chronic back pain - Scribe Statement The provider has reviewed the documentation as recorded by the Martinibjf Kearns Provider Attestation: All medical record entries made by the Martinibe were at my direction and personally dictated by me. I have reviewed the chart and agree that the record accurately reflects my personal performance of the history, physical exam, medical decision making, and the department course for this patient. I have also personally directed, reviewed, and agree with the discharge instructions and disposition.
[2018-03-02 22:19] VITALS: BP 106/74; PULSE 100; RESP 18; TEMP 97.5; O2SAT 95
== END 2018-03-02 22:20 | disposition home or self-care (01) ==
LOC: C.ER 18:22
DX: G89.29 Other chronic pain (principal); M54.9 Dorsalgia, unspecified; M79.606 Pain in leg, unspecified

== ENCOUNTER 2018-03-03 17:48 | Emergency (ER) | payer MEDICARE ==
[2018-03-03 17:50] VITALS: BMI 25.8
--- NOTE | 2018-03-03 19:38 | C.PDOC ---
History Of Present Illness 52 y/o male presents to the ED requesting a place to stay the night. Also complaining of chronic back pain. Seen here yesterday for similar complaints, and had a CT showing some DJD of the lumbar spine, narrowing of the neuroforamina, and mild spinal canal stenosis at L4-L5 and L5-S1. Patient is ambulating with a cane. He denies any new trauma or fall. On arrival patient has (+) alcohol on breath. Patient is well known to this ED for chronic alcohol abuse. <Julianna Soliman - Last Filed: 03/04/18 01:05> History Per: Patient, EMS History/Exam Limitations: intoxication Onset/Duration Of Symptoms: Hrs Current Symptoms Are (Timing): Still Present Modifying Factor(s): Alcohol Associated Symptoms: denies: Suicidal Thoughts, Suicidal Plan Involuntary Hold By: None Recent travel outside of the [place]: No Additional History Per: Patient, EMS <Julianna Soliamn - Last Filed: 03/04/18 01:05> <Lui Loredo - Last Filed: 03/04/18 05:13> Time Seen by Provider: 03/03/18 19:37 Chief Complaint (Nursing): Substance Abuse Past Medical History Reviewed: Historical Data, Nursing Documentation, Vital Signs Vital Signs: Last Vital Signs Temp 97.8 F 03/03/18 18:00 Pulse 91 H 03/03/18 18:00 Resp 18 03/03/18 18:00 BP 109/67 03/03/18 18:00 Pulse Ox 97 03/03/18 18:00 - Medical History PMH: Anxiety, Arthritis (BACK; R FX 3RD FINGER), Asthma, Back Problems, Fractures (right hand), Seizures Surgical History: No Surg Hx Family History: States: Unknown Family Hx - Social History Hx Tobacco Use: No Hx Alcohol Use: Yes Hx Substance Use: No - Immunization History Hx Tetanus Toxoid Vaccination: No Hx Influenza Vaccination: No Hx Pneumococcal Vaccination: No <JourdanJulianna - Last Filed: 03/04/18 01:05> Vital Signs: Last Vital Signs Temp 98 F 03/04/18 00:55 Pulse 77 03/04/18 00:55 Resp 18 03/04/18 00:55 BP 92/64 L 03/04/18 00:55 Pulse Ox 97 03/04/18 01:05 - Medical History Other PMH: Hx of spinal stenosis <Lui Loredo - Last Filed: 03/04/18 05:13> Review Of Systems Psych: Positive for: Other (EtOH intoxication ) <Julianna Soliman Last Filed: 03/04/18 01:05> Physical Exam - Physical Exam Appears: Non-toxic, No Acute Distress, Other (visibly intoxicated ) Skin: Normal Color, Warm, Dry Head: Atraumatic, Normacephalic Eye(s): bilateral: Normal Inspection Oral Mucosa: Moist Neck: Supple Chest: Symmetrical, No Deformity, No Tenderness Cardiovascular: Rhythm Regular Respiratory: Normal Breath Sounds, No Accessory Muscle Use Extremity: Normal ROM, Capillary Refill (less than 2 seconds ) Neurological/Psych: Other (arousable to touch and verbal stimuli ) <Julianna Soliman Last Filed: 03/04/18 01:05> ED Course And Treatment O2 Sat by Pulse Oximetry: 97 (on RA) Pulse Ox Interpretation: Normal <Julianna Soliman Filed: 03/04/18 01:05> Disposition - Disposition Disposition Time: 01:00 <Julianna Soliman Filed: 03/04/18 01:05> Counseled Patient/Family Regarding: Diagnosis - Disposition Disposition Time: 05:40 - POA Present On Arrival: None <Lui Loredo - Last Filed: 03/04/18 05:13> - Disposition Referrals: [facility] at [facility] [Outside] Condition: STABLE Instructions: Alcohol Abuse and Alcoholism (DC) Forms: [facility] (Algerian) - Clinical Impression Clinical Impression: Alcohol intoxication, Chronic leg pain - Scribe Statement The provider has reviewed the documentation as recorded by the Scribe (Iris Kenney) Provider Attestation: All medical record entries made by the Scribe were at my direction and personally dictated by me. I have reviewed the chart and agree that the record accurately reflects my personal performance of the history, physical exam, medical decision making, and the department course for this patient. I have also personally directed, reviewed, and agree with the discharge instructions and disposition. <Julianna Soliman Last Filed: 03/04/18 01:05> Physician Patient Turnover Patient Signed Over To: Lui Loredo Handoff Comments: SOBRIETY <JourdanJulianna Olivera Filed: 03/04/18 01:05>
[2018-03-04 05:24] VITALS: BP 122/61; PULSE 81; RESP 18; TEMP 97.8; O2SAT 99
== END 2018-03-04 05:24 | disposition home or self-care (01) ==
LOC: C.ER 17:48
DX: F10.129 Alcohol abuse with intoxication, unspecified (principal); M79.606 Pain in leg, unspecified; G89.29 Other chronic pain

== ENCOUNTER 2018-03-07 19:34 | Emergency (ER) | payer MEDICARE ==
[2018-03-07 19:35] VITALS: BMI 25.8
--- NOTE | 2018-03-07 20:55 | C.PDOC ---
History Of Present Illness 52 year old male GAIL, with PMHx of asthma, presents to ED after being found intoxicated in public. States he was sitting and fell down. Denies any physical complaints. <EthelNatan T - Last Filed: 03/07/18 22:04> History Per: Patient History/Exam Limitations: no limitations Onset/Duration Of Symptoms: Hrs Current Symptoms Are (Timing): Still Present <Natan Davenport T - Last Filed: 03/07/18 22:04> <Lui Loredo R - Last Filed: 03/08/18 04:05> Time Seen by Provider: 03/07/18 19:36 Chief Complaint (Nursing): Substance Abuse Past Medical History Reviewed: Historical Data, Nursing Documentation, Vital Signs Vital Signs: Last Vital Signs Temp 97.3 F L 03/07/18 19:37 Pulse 106 H 03/07/18 19:37 Resp 21 03/07/18 19:37 BP 141/80 03/07/18 19:37 Pulse Ox 98 03/07/18 19:37 - Medical History PMH: Anxiety, Arthritis (BACK; R FX 3RD FINGER), Asthma, Back Problems, Fractures (right hand), Seizures Family History: States: No Known Family Hx - Social History Hx Tobacco Use: No Hx Alcohol Use: Yes Hx Substance Use: No - Immunization History Hx Tetanus Toxoid Vaccination: No Hx Influenza Vaccination: No Hx Pneumococcal Vaccination: No <EthelNatan T - Last Filed: 03/07/18 22:04> Vital Signs: Last Vital Signs Temp 98.4 F 03/07/18 23:34 Pulse 99 H 03/07/18 23:34 Resp 16 03/07/18 23:34 BP 106/60 03/07/18 23:34 Pulse Ox 97 03/07/18 23:34 <Lui Loredo R - Last Filed: 03/08/18 04:05> Review Of Systems Except As Marked, All Systems Reviewed And Found Negative. Constitutional: Negative for: Fever, Chills Cardiovascular: Negative for: Chest Pain Respiratory: Negative for: Shortness of Breath Gastrointestinal: Negative for: Nausea, Vomiting Neurological: Negative for: Weakness, Numbness <Natan Davenport - Last Filed: 03/07/18 22:04> Physical Exam - Physical Exam Additional Physical Exam Comments: Constitutional: No acute distress. Head: Normocephalic. Atraumatic. Eyes: PERRL. ENT: Moist mucous membranes. Neck: Supple. Cardiovascular: Regular rate. Radial pulse 2+ bilaterally. Chest: No tenderness. Respiratory: Clear to auscultation bilaterally. GI: Soft. Nontender. Nondistended. Back: No CVA tenderness. Musculoskeletal: Bilateral arms shaking. Tremors at rest. Skin: Chronic skin changes to lower legs. Pitting edema bilaterally. Neurologic: Alert, no focal deficit. <Natan Davenport - Last Filed: 03/07/18 22:04> ED Course And Treatment - Laboratory Results Result Diagrams: 03/07/18 21:24 03/07/18 21:24 O2 Sat by Pulse Oximetry: 98 (RA) Pulse Ox Interpretation: Normal <EthelNatan Garcia - Last Filed: 03/07/18 22:04> - Laboratory Results Result Diagrams: 03/07/18 21:24 03/07/18 21:24 <Lui Loredo - Last Filed: 03/08/18 04:05> Medical Decision Making Medical Decision Making: Impression: Alcohol Abuse Plan: --Labs --Urinalysis <EthelNatan Garcia - Last Filed: 03/07/18 22:04> Disposition - Disposition Disposition Time: 22:04 [facility] Last Filed: 03/07/18 22:04> Counseled Patient/Family Regarding: Diagnosis - POA Present On Arrival: None <Lui Loredo - Last Filed: 03/08/18 04:05> - Disposition Disposition: HOME/ ROUTINE Condition: STABLE Instructions: Alcohol Abuse and Alcoholism (DC) Forms: [employer] (Zimbabwean) - Clinical Impression Clinical Impression: Alcohol abuse, Alcohol intoxication - Scribe Statement The provider has reviewed the documentation as recorded by the Gricelda Appiah Provider Attestation: All medical record entries made by the Gricelda were at my direction and personally dictated by me. I have reviewed the chart and agree that the record accurately reflects my personal performance of the history, physical exam, medical decision making, and the department course for this patient. I have also personally directed, reviewed, and agree with the discharge instructions and disposition. <Natan Davenport - Last Filed: 03/07/18 22:04>
[2018-03-07 21:28] LABS: BASO % 0.8 % (0.0-2.0); EOS # 0.2 K/uL (0.0-0.7); EOS % 5.5 % (0.0-4.0); LYMPH % 45.1 % (20.0-40.0); MEAN CELL VOLUME 100.7 fL (80.0-94.0); MEAN CORPUSCULAR HEMOGLOBIN 34.4 pg (27.0-31.0); MEAN CORPUSCULAR HGB CONC 34.2 g/dL (33.0-37.0); MEAN PLATELET VOLUME 8.4 fL (7.2-11.7); MONO # 0.5 K/uL (0.0-0.8); MONO % 10.3 % (0.0-10.0); NEUT # 1.7 K/uL (1.8-7.0); NEUT % 38.3 % (50.0-75.0); NRBC % 0.1 % (0.0-2.0); RBC 3.76 Mil/uL (4.40-5.90); RED CELL DISTRIBUTION WIDTH 15.3 % (11.5-14.5); WHITE BLOOD COUNT 4.5 K/uL (4.8-10.8)
[2018-03-07 21:45] LABS: ALB/GLOB RATIO 1.1 (1.0-2.1); ALT/SGPT 23 U/L (21-72); AST/SGOT 38 U/L (17-59); BLOOD UREA NITROGEN 9 mg/dL (9-20); CALCIUM 9.3 mg/dl (8.6-10.4); GFR NON-AFRICAN AMERICAN > 60; LIPASE 259 U/L (23-300)
[2018-03-07 22:16] LABS: SQUAMOUS EPITHIAL < 1 /hpf (0-5); URINE BILIRUBIN NEGATIVE (NEGATIVE); URINE BLOOD NEGATIVE (NEGATIVE); URINE CLARITY Clear (Clear); URINE COLOR Yellow (YELLOW); URINE GLUCOSE (UA) NORMAL (Normal); URINE LEUKOCYTE ESTERASE NEG Leu/uL (Negative); URINE PROTEIN NEGATIVE (NEGATIVE); URINE UROBILINOGEN NORMAL mg/dL (0.2-1.0)
[2018-03-07 23:35] VITALS: RESP 16; O2SAT 97
[2018-03-08 05:05] VITALS: BP 107/68; PULSE 90; TEMP 98.9
== END 2018-03-08 05:29 | disposition home or self-care (01) ==
LOC: C.ER 19:34
DX: F10.129 Alcohol abuse with intoxication, unspecified (principal); Y90.6 Blood alcohol level of 120-199 mg/100 ml

== ENCOUNTER 2018-03-08 19:26 | Emergency (ER) | payer MEDICARE ==
[2018-03-08 19:26] VITALS: BMI 25.8
[2018-03-08 19:33] VITALS: BP 113/75; PULSE 79; RESP 18; TEMP 97.8; O2SAT 97
--- NOTE | 2018-03-08 19:59 | C.PDOC ---
History Of Present Illness 52 year old male is brought to the ED by ambulance for evaluation of alcohol intoxication for an unknown duration. Patient is familiar to the ED and has had many prior evaluations with the same presentation. Patient was seen in the ED yesterday for the same. He admits to drinking earlier today and denies any injuries at this time. Time Seen by Provider: 03/08/18 19:56 Chief Complaint (Nursing): Substance Abuse History Per: Patient, EMS History/Exam Limitations: intoxication Onset/Duration Of Symptoms: Hrs Current Symptoms Are (Timing): Still Present Suicide/Self Injury Attempted (Context): None Modifying Factor(s): Alcohol Associated Symptoms: denies: Suicidal Thoughts, Suicidal Plan Involuntary Hold By: None Recent travel outside of the [place]: No Additional History Per: Patient Past Medical History Reviewed: Historical Data, Nursing Documentation, Vital Signs Vital Signs: Last Vital Signs Temp 97.8 F 03/08/18 19:31 Pulse 79 03/08/18 19:31 Resp 18 03/08/18 19:31 BP 113/75 03/08/18 19:31 Pulse Ox 97 03/08/18 19:31 - Medical History PMH: Anxiety, Arthritis (BACK; R FX 3RD FINGER), Asthma, Back Problems, Fractures (right hand), Seizures Surgical History: No Surg Hx Family History: States: Unknown Family Hx - Social History Hx Tobacco Use: No Hx Alcohol Use: Yes Hx Substance Use: No - Immunization History Hx Tetanus Toxoid Vaccination: No Hx Influenza Vaccination: No Hx Pneumococcal Vaccination: No Review Of Systems Psych: Positive for: Other (EtOH intoxication ). Negative for: Suicidal ideation Physical Exam - Physical Exam Appears: Non-toxic, No Acute Distress, Unkempt, Other (foul-smelling, disheveled) Skin: Normal Color, Warm, Dry Head: Atraumatic, Normacephalic Eye(s): bilateral: Normal Inspection Oral Mucosa: Moist, Other (alcohol on breath ) Neck: Supple Chest: Symmetrical, No Deformity Cardiovascular: Rhythm Regular Respiratory: No Accessory Muscle Use Extremity: Normal ROM Neurological/Psych: Other (awake, alert and oriented ) ED Course And Treatment O2 Sat by Pulse Oximetry: 97 (on RA) Pulse Ox Interpretation: Normal Medical Decision Making Medical Decision Making: alcohol abuse, malingering no acute intox awake/aware Disposition Doctor Will See Patient In The: Office Counseled Patient/Family Regarding: Studies Performed, Diagnosis - Disposition Referrals: [facility] [Outside] [facility] [Outside] [facility] [Outside] [facility] [Outside] Disposition: HOME/ ROUTINE Disposition Time: 19:58 Condition: GOOD Instructions: Alcohol Abuse and Alcoholism (DC) Forms: [employer] (Cuban) - Clinical Impression Clinical Impression: Malingering, Homelessness, Alcohol abuse - Scribe Statement The provider has reviewed the documentation as recorded by the Scribe (Iris Kenney) Provider Attestation: All medical record entries made by the Scribe were at my direction and personally dictated by me. I have reviewed the chart and agree that the record accurately reflects my personal performance of the history, physical exam, med [facility] decision making, and the department course for this patient. I have also personally directed, reviewed, and agree with the discharge instructions and disposition.
== END 2018-03-08 20:17 | disposition home or self-care (01) ==
LOC: C.ER 19:26
DX: F10.129 Alcohol abuse with intoxication, unspecified (principal); Z76.5 Malingerer [conscious simulation]; Z59.0 Homelessness

== ENCOUNTER 2018-03-09 19:56 | Emergency (ER) | payer MEDICARE ==
[2018-03-09 19:56] VITALS: BMI 25.8
[2018-03-09 20:08] VITALS: BP 129/80; PULSE 78; RESP 18; TEMP 97.7; O2SAT 100
--- NOTE | 2018-03-09 20:55 | C.PDOC ---
History Of Present Illness 52-year-old homeless male brought in by ambulance for complaints of chronic leg swelling and pain. He denies any new pain or symptoms. No recent fall or trauma. Patient states he just needs a place to rest. Denies any fever or other associated symptoms. Time Seen by Provider: 03/09/18 20:10 Chief Complaint (Nursing): Lower Extremity Problem/Injury History Per: Patient History/Exam Limitations: no limitations Onset/Duration Of Symptoms: Days Current Symptoms Are (Timing): Still Present Past Medical History Reviewed: Historical Data, Nursing Documentation, Vital Signs Vital Signs: Last Vital Signs Temp 97.7 F 03/09/18 20:04 Pulse 78 03/09/18 20:04 Resp 18 03/09/18 20:04 BP 129/80 03/09/18 20:04 Pulse Ox 100 03/09/18 20:04 - Medical History PMH: Anxiety, Arthritis (BACK; R FX 3RD FINGER), Asthma, Back Problems, F ractures (right hand), Seizures Family History: States: Unknown Family Hx - Social History Hx Tobacco Use: No Hx Alcohol Use: Yes Hx Substance Use: No - Immunization History Hx Tetanus Toxoid Vaccination: No Hx Influenza Vaccination: No Hx Pneumococcal Vaccination: No Review Of Systems Constitutional: Negative for: Fever, Chills Musculoskeletal: Positive for: Other (chronic lower extremity swelling) Skin: Negative for: Lesions Neurological: Negative for: Weakness, Numbness, Incoordination Physical Exam - Physical Exam Appears: Non-toxic, No Acute Distress Skin: Warm, Dry, No Rash Head: Atraumatic, Normacephalic Eye(s): bilateral: Normal Inspection Neck: Normal ROM Respiratory: No Accessory Muscle Use, Other (No respiratory distress) Extremity: Normal ROM, No Calf Tenderness, Capillary Refill (less than 2 sec), No Deformity, Swelling (Chronic swelling to bilateral LE, appears symmetric; No erythema, warmth, or tenderness), Other (Feet not examined - patient refused to remove shoes) Pulses: Left Dorsalis Pedis: Normal, Right Dorsalis Pedis: Normal Neurological/Psych: Oriented x3, Normal Speech, Normal Motor, Normal Sensation ED Course And Treatment O2 Sat by Pulse Oximetry: 100 (RA) Pulse Ox Interpretation: Normal Progress Note: Patient resting comfortably in chair, admits no acute symptoms at this time. Vital signs stable. Patient will be discharged. Counseled patient regarding chronic swelling, return precautions discussed. Patient advised to seek nightly retirement placement. Disposition Counseled Patient/Family Regarding: Diagnosis, Need For Followup, Rx Given - Disposition Referrals: [facility] [Outside] Disposition: HOME/ ROUTINE Disposition Time: 20:54 Condition: STABLE Additional Instructions: Please follow up [facility] Leg elevation GO TO A [facility]IARY Return to ER if worse Forms: [facility] (Lebanese), General Discharge Instructions - Clinical Impression Clinical Impression: Chronic leg pain - PA / ELECTROLOGIST / Resident Statement MD/DO has reviewed & agrees with the documentation as recorded. - Scribe Statement The provider has reviewed the documentation as recorded by the Scribe (Yarely Kearns) All medical record entries made by the Scribe were at my direction and personally dictated by me. I have reviewed the chart and agree that the record accurately reflects my personal performance of the history, physical exam, medical decision making, and the department course for this patient. I have also personally directed, reviewed, and agree with the discharge instructions and disposition.
== END 2018-03-09 21:06 | disposition home or self-care (01) ==
LOC: C.ER 19:56
DX: G89.29 Other chronic pain (principal); M79.662 Pain in left lower leg; M79.661 Pain in right lower leg

== ENCOUNTER 2018-03-27 18:04 | Emergency (ER) | payer MEDICARE ==
[2018-03-27 18:04] VITALS: BMI 25.8
--- NOTE | 2018-03-27 20:07 | C.PDOC ---
History Of Present Illness 52 y/o male GAIL presents to ER after being found intoxicated in public. Patient denies any physical injuries. Time Seen by Provider: 03/27/18 19:18 Chief Complaint (Nursing): Substance Abuse History Per: EMS History/Exam Limitations: no limitations Onset/Duration Of Symptoms: Hrs Current Symptoms Are (Timing): Still Present Suicide/Self Injury Attempted (Context): None Modifying Factor(s): Alcohol Pain Scale Rating Of: 0 Involuntary Hold By: None Recent travel outside of the [place]: No Additional History Per: Patient Past Medical History Reviewed: Historical Data, Nursing Documentation, Vital Signs Vital Signs: Last Vital Signs Temp 97.7 F 03/27/18 18:15 Pulse 68 03/27/18 18:15 Resp 16 03/27/18 18:15 BP 110/72 03/27/18 18:15 Pulse Ox 95 03/27/18 18:15 - Medical History PMH: Anxiety, Arthritis (BACK; R FX 3RD FINGER), Asthma, Back Problems, Fractures (right hand), Seizures Family History: States: No Known Family Hx - Social History Hx Tobacco Use: No Hx Alcohol Use: Yes Hx Substance Use: No - Immunization History Hx Tetanus Toxoid Vaccination: No Hx Influenza Vaccination: No Hx Pneumococcal Vaccination: No Review Of Systems Constitutional: Negative for: Fever Cardiovascular: Negative for: Chest Pain Respiratory: Negative for: Shortness of Breath Gastrointestinal: Negative for: Nausea, Vomiting Skin: Negative for: Rash Neurological: Negative for: Weakness, Numbness Physical Exam - Physical Exam Appears: Non-toxic, No Acute Distress, Other (Alcohol on breath) Skin: Warm, Dry Head: Normacephalic Eye(s): bilateral: Normal Inspection Oral Mucosa: Moist Neurological/Psych: Oriented x3, Normal Speech Gait: Steady ED Course And Treatment O2 Sat by Pulse Oximetry: 95 (RA) Pulse Ox Interpretation: Normal Reevaluation Time: 05:04 Reassessment Condition: Improved Disposition Counseled Patient/Family Regarding: Studies Performed, Diagnosis, Need For Followup - Disposition Referrals: [facility] at [facility] [Outside] Disposition: HOME/ ROUTINE Disposition Time: 20:00 Condition: FAIR Instructions: Alcohol Abuse and Alcoholism (DC) Forms: [employer] [facility] [employer] (Maori) - Clinical Impression Clinical Impression: Alcohol intoxication - Scribe Statement The provider has reviewed the documentation as recorded by the Gricelda Appiah Provider Attestation: All medical record entries made by the Martinibjf were at my direction and personally dictated by me. I have reviewed the chart and agree that the record accurately reflects my personal performance of the history, physical exam, medical decision making, and the department course for this patient. I have also personally directed, reviewed, and agree with the discharge instructions and d isposition.
[2018-03-28 02:34] VITALS: O2SAT 95
[2018-03-28 05:51] VITALS: BP 95/68; PULSE 64; RESP 14; TEMP 97.6
== END 2018-03-28 05:50 | disposition home or self-care (01) ==
LOC: C.ER 18:04
DX: F10.129 Alcohol abuse with intoxication, unspecified (principal)

== ENCOUNTER 2018-04-06 00:26 | Emergency (ER) | payer MEDICARE ==
[2018-04-06 00:27] VITALS: BMI 25.8
--- NOTE | 2018-04-06 00:36 | C.PDOC ---
History Of Present Illness Patient found sleeping in the street. States he has been drinking. Not suicidal or homicidal. Time Seen by Provider: 04/06/18 00:35 History Per: Patient, EMS History/Exam Limitations: no limitations Onset/Duration Of Symptoms: Hrs Current Symptoms Are (Timing): Still Present Suicide/Self Injury Attempted (Context): None Modifying Factor(s): Alcohol Severity: None Associated Symptoms: denies: Anger, Anxiety Involuntary Hold By: None Recent travel outside of the [place]: No Additional History Per: Patient Past Medical History Reviewed: Historical Data, Nursing Documentation, Vital Signs - Medical History PMH: Anxiety, Arthritis (BACK; R FX 3RD FINGER), Asthma, Back Problems, Fractures (right hand), Seizures Family History: States: No Known Family Hx - Social History Hx Tobacco Use: No Hx Alcohol Use: Yes Hx Substance Use: No - Immunization History Hx Tetanus Toxoid Vaccination: No Hx Influenza Vaccination: No Hx Pneumococcal Vaccination: No Review Of Systems Constitutional: Negative for: Fever, Chills Cardiovascular: Negative for: Chest Pain Respiratory: Negative for: Shortness of Breath Gastrointestinal: Negative for: Abdominal Pain Musculoskeletal: Negative for: Back Pain Neurological: Negative for: Weakness Psych: Negative for: Anxiety Physical Exam - Physical Exam Appears: Non-toxic, No Acute Distress Head: Normacephalic Eye(s): bilateral: Normal Inspection Oral Mucosa: Moist Chest: Symmetrical Cardiovascular: Rhythm Regular Respiratory: No Rales, No Rhonchi Gastrointestinal/Abdominal: Soft, No Tenderness Extremity: Normal ROM Neurological/Psych: Oriented x3 Gait: Unsteady ED Course And Treatment O2 Sat by Pulse Oximetry: 98 Pulse Ox Interpretation: Normal Reevaluation Time: 05:24 Reassessment Condition: Improved Disposition Counseled Patient/Family Regarding: Studies Performed, Diagnosis, Need For Followup - Disposition Referrals: [facility] at [facility] [Outside] Disposition: HOME/ ROUTINE Disposition Time: 00:35 Condition: FAIR Instructions: Alcohol Abuse and Alcoholism (DC) - Clinical Impression Clinical Impression: Alcohol intoxication
[2018-04-06 05:38] VITALS: RESP 20
[2018-04-06 05:50] VITALS: BP 122/69; PULSE 81; TEMP 97.5; O2SAT 99
== END 2018-04-06 05:49 | disposition home or self-care (01) ==
LOC: C.ER 00:26
DX: F10.129 Alcohol abuse with intoxication, unspecified (principal)

== ENCOUNTER 2018-04-26 22:07 | Emergency (ER) | payer MEDICARE ==
[2018-04-26 22:07] VITALS: BMI 25.8
--- NOTE | 2018-04-26 22:57 | C.PDOC ---
History Of Present Illness 52 year old male is brought to the ED by EMS for evaluation of chronic leg pain. Patient reports he is homeless and wants a place to stay. Patient denies SI/HI, hallucinations, CP, SOB, palpitations, injury, fall, trauma. Time Seen by Provider: 04/26/18 22:56 Chief Complaint (Nursing): Lower Extremity Problem/Injury History Per: Patient History/Exam Limitations: no limitations Onset/Duration Of Symptoms: Days Current Symptoms Are (Timing): Still Present Recent travel outside of the [place]: No Additional History Per: Patient Past Medical History Reviewed: Historical Data, Nursing Documentation, Vital Signs Vital Signs: Last Vital Signs Temp 98.4 F 04/26/18 22:35 Pulse 82 04/26/18 22:35 Resp 22 04/26/18 22:35 BP 115/70 04/26/18 22:35 Pulse Ox 97 04/26/18 22:35 - Medical History PMH: Anxiety, Arthritis (BACK; R FX 3RD FINGER), Asthma, Back Problems, Fractures (right hand), Seizures Surgical History: No Surg Hx Family History: States: Unknown Family Hx - Social History Hx Tobacco Use: No Hx Alcohol Use: Yes Hx Substance Use: No - Immunization History Hx Tetanus Toxoid Vaccination: No Hx Influenza Vaccination: No Hx Pneumococcal Vaccination: No Review Of Systems Constitutional: Negative for: Fever, Chills Cardiovascular: Negative for: Chest Pain Respiratory: Negative for: Cough, Shortness of Breath Gastrointestinal: Negative for: Nausea, Vomiting, Abdominal Pain Musculoskeletal: Positive for: Leg Pain Skin: Negative for: Rash Neurological: Negative for: Weakness, Numbness Psych: Negative for: Depression, Suicidal ideation Physical Exam - Physical Exam Appears: Non-toxic, No Acute Distress Skin: Warm, Dry Head: Normacephalic Eye(s): bilateral: Normal Inspection Neck: Supple Chest: Symmetrical Cardiovascular: Rhythm Regular Respiratory: No Rales, No Rhonchi, No Wheezing Gastrointestinal/Abdominal: Soft, No Tenderness, No Guarding, No Rebound Extremity: Pedal Edema (chronic), Capillary Refill (< 2 seconds) Extremity: Bilateral: Atraumatic, Normal ROM, Other (chronic skin changes, venous stasis) Pulses: Left Dorsalis Pedis: Normal, Right Dorsalis Pedis: Normal Neurological/Psych: Oriented x3, Normal Speech, Normal Cognition Gait: With Assistance ED Course And Treatment O2 Sat by Pulse Oximetry: 97 (ON RA) Pulse Ox Interpretation: Normal Disposition Counseled Patient/Family Regarding: Studies Performed, Diagnosis, Need For Followup - Disposition Referrals: [facility] at [facility] [Outside] Disposition: HOME/ ROUTINE Disposition Time: 22:56 Condition: FAIR Forms: [facility] (Australian), General Discharge Instructions - Clinical Impression Clinical Impression: Chronic leg pain - Scribe Statement The provider has reviewed the documentation as recorded by the Scribe Titus Soler All medical record entries made by the Scribe were at my direction and personally dictated by me. I have reviewed the chart and agree that the record accurately reflects my personal performance of the history, physical exam, medical decision making, and the department course for this patient. I have also personally directed, reviewed, and agree with the discharge instructions and disposition.
[2018-04-27 05:32] VITALS: BP 114/71; PULSE 84; RESP 20; TEMP 98.6
[2018-04-27 05:45] VITALS: O2SAT 97
== END 2018-04-27 06:11 | disposition home or self-care (01) ==
LOC: C.ER 22:07
DX: G89.29 Other chronic pain (principal); M79.606 Pain in leg, unspecified; Z59.0 Homelessness

== ENCOUNTER 2018-04-27 17:53 | Emergency (ER) | payer MEDICARE ==
[2018-04-27 17:53] VITALS: BMI 25.8
--- NOTE | 2018-04-27 20:35 | C.PDOC ---
History Of Present Illness 52 year old male with Hx of homelessness and ETOH abuse presents to the ER after being found lethargic in [facility]. Patient reports leg weakness and swelling which has been ongoing for a year and a half. Patient has presented multiple times in the past for the same issue. Denies ETOH use or drug use. PMHx: Anxiety, Arthritis, Asthma, Back Pain, Fractures (right hand) Time Seen by Provider: 04/27/18 18:27 Chief Complaint (Nursing): Substance Abuse History Per: Patient, EMS History/Exam Limitations: no limitations Onset/Duration Of Symptoms: Hrs Current Symptoms Are (Timing): Still Present Modifying Factor(s): None Involuntary Hold By: None Recent travel outside of the [place]: No Past Medical History Reviewed: Historical Data, Nursing Documentation, Vital Signs Vital Signs: Last Vital Signs Temp 97.6 F 04/27/18 20:31 Pulse 73 04/27/18 20:31 Resp 18 04/27/18 20:31 BP 126/58 L 04/27/18 20:31 Pulse Ox 96 04/27/18 20:31 - Medical History PMH: Anxiety, Arthritis (BACK; R FX 3RD FINGER), Asthma, Back Problems, Fractures (right hand), Seizures (ETOH INDUCED) Family History: States: Unknown Family Hx - Social History Hx Tobacco Use: No Hx Alcohol Use: Yes Hx Substance Use: No - Immunization History Hx Tetanus Toxoid Vaccination: No Hx Influenza Vaccination: No Hx Pneumococcal Vaccination: No Review Of Systems Except As Marked, All Systems Reviewed And Found Negative. Musculoskeletal: Positive for: Other (Leg weakness and swelling) Physical Exam - Physical Exam Appears: No Acute Distress, Unkempt, Other (Disheveled) Skin: Warm, Dry Head: Atraumatic, Normacephalic Eye(s): bilateral: PERRL, EOMI Gastrointestinal/Abdominal: Soft, No Tenderness Extremity: Other (Bilateral trace lower leg edema with chronic appearing vascular skin changes) Neurological/Psych: Oriented x3, Normal Motor ED Course And Treatment O2 Sat by Pulse Oximetry: 96 (Room air) Pulse Ox Interpretation: Normal Medical Decision Making Medical Decision Making: Impression: Homelessness, Alcoholism Disposition - Disposition Referrals: [facility] [Outside] Disposition: HOME/ ROUTINE Disposition Time: 21:00 Condition: IMPROVED Instructions: Dependent Edema (DC), Alcohol Abuse and Alcoholism (DC) Forms: [employer] (Mongolian) Print Language: SALVADOREAN - Clinical Impression Clinical Impression: Homelessness, Alcohol abuse - Scribe Statement The provider has reviewed the documentation as recorded by the Scribjf Hobson All medical record entries made by the Scribe were at my direction and personally dictated by me. I have reviewed the chart and agree that the record accurately reflects my personal performance of the history, physical exam, medical decision making, and the department course for this patient. I have also personally directed, reviewed, and agree with the discharge instructions and disposition.
[2018-04-27 22:10] VITALS: BP 131/62; PULSE 79; RESP 17; TEMP 98
[2018-04-28 00:45] VITALS: O2SAT 96
== END 2018-04-27 22:18 | disposition home or self-care (01) ==
LOC: C.ER 17:53
DX: F10.10 Alcohol abuse, uncomplicated (principal); Z59.0 Homelessness

== ENCOUNTER 2018-04-30 18:07 | Inpatient (IN) | payer MEDICARE ==
[2018-04-30 18:08] VITALS: BMI 25.8
--- NOTE | 2018-04-30 18:44 | C.PDOC ---
History Of Present Illness 52 y/o male brought in by EMS with complaint of bilateral leg weakness x hours. Patient was found lying on sidewalk in [facility]. He admits to drinking alcohol today but only 1 beer. Patient states he felt normal today, sat on his walker seat in [facility] and when he attempted to get up some hours later, he could not move both legs. He reports numbness in both legs as well. Denies pain, back pain, injury, IVDA, incontinence or retention of urine or stool. Time Seen by Provider: 04/30/18 18:16 Chief Complaint (Nursing): Lower Extremity Problem/Injury History Per: Patient History/Exam Limitations: no limitations Onset/Duration Of Symptoms: Days Current Symptoms Are (Timing): Still Present Past Medical History Reviewed: Historical Data, Nursing Documentation, Vital Signs Vital Signs: Last Vital Signs Temp 97.9 F 04/30/18 18:18 Pulse 68 04/30/18 18:18 Resp 19 04/30/18 18:18 BP 109/69 04/30/18 18:18 Pulse Ox 100 04/30/18 18:18 - Medical History PMH: Anxiety, Arthritis (BACK; R FX 3RD FINGER), Asthma, Back Problems, Fractures (right hand), Seizures (ETOH INDUCED) Family History: States: Unknown Family Hx - Social History Hx Tobacco Use: No Hx Alcohol Use: Yes Hx Substance Use: No - Immunization History Hx Tetanus Toxoid Vaccination: No Hx Influenza Vaccination: No Hx Pneumococcal Vaccination: No Review Of Systems Except As Marked, All Systems Reviewed And Found Negative. Constitutional: Negative for: Fever Cardiovascular: Negative for: Chest Pain Respiratory: Negative for: Cough, Shortness of Breath Gastrointestinal: Negative for: Vomiting Neurological: Positive for: Weakness, Numbness Psych: Negative for: Suicidal ideation Physical Exam - Physical Exam Additional Physical Exam Comments: Constitutional: No acute distress. Appears unkempt. Head: Normocephalic. Atraumatic. Eyes: PERRL. ENT: Moist mucous membranes. Neck: Supple. Cardiovascular: Regular rate. Radial pulse 2+ bilaterally. Chest: No tenderness. Respiratory: Clear to auscultation bilaterally. GI: Soft. Nontender. Nondistended. Rectal: Normal tone. Back: No CVA tenderness. Musculoskeletal: No tenderness. Chronic skin changes, venous stasis to bilateral lower extremities. Neurologic: Alert, bilateral lower extremities stiff to passive movement. No active movement. No movement with pin prick. R leg withdraws to Babinski, L leg no movement with Babainski. R foot clonus present. ED Course And Treatment - Laboratory Results Result Diagrams: 04/30/18 19:20 04/30/18 19:20 O2 Sat by Pulse Oximetry: 100 (RA) Pulse Ox Interpretation: Normal Medical Decision Making Medical Decision Making: Impression: ETOH intoxication, chronic leg pain Plan: * Will observe in the ED for sobriety CT Lumbar Spine Findings: The lumbar vertebral bodies are in satisfactory positioning and alignment. No fractures or dislocations are demonstrated. Intervertebral disc spaces are mildly narrowed at L4/L5 and L5/S1. There is no evidence of facet subluxation. The surrounding soft tissues are within normal limits. At L1/L2, L2/L3, and L3/L4, there is no evidence of disc herniation or central canal stenosis. The neural foramen are patent. At L4/L5, there is a broad-based disc bulge demonstrated causing mild central canal narrowing measuring 10 mm in AP diameter. Mild narrowing of the neural foramen is noted bilaterally. At L5/S1, there is a broad disc osteophyte complex and disc bulge. This results in mild central canal narrowing and bilateral neural foraminal narrowing. Impression: 1. No acute fracture or traumatic osseous injury. 2. Mild disc osteophyte complexes and disc bulges at L4/L5 and L5/S1 causing mild central canal stenosis and bilateral neural foraminal narrowing. Overall, these findings are stable since the prior study. CT Head Findings: The ventricles and sulci are symmetric but prominent in size bilaterally. Symmetric areas of encephalomalacia are seen in the frontal lobes bilaterally. There are periventricular areas of low attenuation throughout the deep white matter. There is no evidence of acute hemorrhage or infarct. There is no midline shift, mass effect, or extra-axial fluid collection. The osseous structures are unremarkable. The visualized paranasal sinuses and mastoid air cells are clear. Impression: No acute hemorrhage or infarct. Findings are consistent with age- related atrophy and chronic small vessel ischemic disease. 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 Discussed case with Dr. Espino who recommends patient will need MRI lumbar spine as inpatient. States will consult. Dr. Torres accepts admission to medical service. Disposition - Disposition Disposition: HOSPITALIZED Disposition Time: 22:53 Condition: GUARDED Instructions: Weakness (ED) Forms: [employer] (Tanzanian) - Clinical Impression Clinical Impression: Bilateral leg weakness - Scribe Statement The provider has reviewed the documentation as recorded by the Martinibjf Kearns Provider Attestation: All medical record entries made by the Martinibjf were at my direction and personally dictated by me. I have reviewed the chart and agree that the record accurately reflects my personal performance of the history, physical exam, medical decision making, and the department course for this patient. I have also personally directed, reviewed, and agree with the discharge instructions and disposition.
[2018-04-30 19:33] LABS: BASO # 0.1 K/uL (0.0-0.2); BASO % 1.1 % (0.0-2.0); EOS # 0.1 K/uL (0.0-0.7); EOS % 1.9 % (0.0-4.0); HEMOGLOBIN 14.3 g/dL (12.0-18.0); LYMPH % 43.8 % (20.0-40.0); MEAN CELL VOLUME 102.1 fL (80.0-94.0); MEAN CORPUSCULAR HEMOGLOBIN 35.1 pg (27.0-31.0); MEAN CORPUSCULAR HGB CONC 34.4 g/dL (33.0-37.0); MEAN PLATELET VOLUME 8.5 fL (7.2-11.7); MONO # 0.4 K/uL (0.0-0.8); MONO % 8.6 % (0.0-10.0); NEUT # 2.1 K/uL (1.8-7.0); NEUT % 44.6 % (50.0-75.0); NRBC % 0.1 % (0.0-2.0); RBC 4.08 Mil/uL (4.40-5.90); RED CELL DISTRIBUTION WIDTH 13.2 % (11.5-14.5); WHITE BLOOD COUNT 4.7 K/uL (4.8-10.8)
[2018-04-30 19:40] LABS: ALB/GLOB RATIO 1.2 (1.0-2.1); ALBUMIN 4.5 g/dL (3.5-5.0); ALT/SGPT 71 U/L (21-72); AST/SGOT 87 U/L (17-59); BLOOD UREA NITROGEN 14 mg/dL (9-20); CALCIUM 9.5 mg/dl (8.6-10.4); GFR NON-AFRICAN AMERICAN > 60
--- NOTE | 2018-04-30 23:40 | CP.PCM.HP ---
History of Present Illness - History of Present Illness History of Present Illness: PGY1 H&P for Dr. Torres's service CC: bilateral leg weakness This is a 52 year old male with PMH of etoh abuse, asthma, seizure (etoh i nduced), back problems, who was BIBA due to bilateral lower extremity weakness since earlier today. Pt reports he was feeling normal and drank beer as usual today, and sat on his walker seat in [facility]. But when he attempted to get up from the walker a few hours later, he was unable to due to inability to move both of his legs. He reports numbness of both legs as well. Pt denies bowel or bladder incontinence, dizziness, fever, chills, recent illness, cough, trauma, chest pain, sob, abdominal pain, n/v/d, hematochezia, melena. 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 Meds: none Allx: egg, milkd, chocolate, peanut butter, NKDA Shx: homeless,(+) smoking, (+) etoh abuse; Denies illicit drug use, denies IVDA Present on Admission - Present on Admission Any Indicators Present on Admission: No Review of Systems - Review of Systems All systems: reviewed and no additional remarkable complaints except (as per HPI) Past Patient History - Infectious Disease Hx of Infectious Diseases: None - Past Medical History & Family History Past Family History: Reviewed and not pertinent - Past Social History Smoking Status: Light Smoker < 10 Cigarettes Daily - PULMONARY Hx Asthma: Yes - NEUROLOGICAL Hx Seizures: Yes (ETOH INDUCED) - MUSCULOSKELETAL/RHEUMATOLOGICAL Hx Arthritis: Yes (BACK; R FX 3RD FINGER) Hx Fractures: Yes (right hand) - GASTROINTESTINAL Hx Gastrointestinal Disorders: Yes Hx Liver Failure: Yes - PSYCHIATRIC Hx Anxiety: Yes Hx Substance Use: No - SURGICAL HISTORY Hx Surgeries: Yes Hx Orthopedic Surgery: Yes Other/Comment: 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 - ANESTHESIA Hx Anesthesia: Yes Hx Anesthesia Reactions: No Hx Malignant Hyperthermia: No Meds Allergies/Adverse Reactions: Allergies Allergy/AdvReac Type Severity Reaction Status Date / Time EGG Allergy Verified 04/30/18 18:20 milk Allergy Verified 04/30/18 18:20 chocolate Allergy Intermediate Uncoded 04/30/18 18:20 PEANUT BUTTER Allergy Intermediate Uncoded 04/30/18 18:20 Physical Exam - Constitutional Appears: Non-toxic, No Acute Distress Additional comments: (+) intoxicated - Head Exam Head Exam: ATRAUMATIC, NORMAL INSPECTION - Eye Exam Eye Exam: EOMI, Normal appearance, PERRL - ENT Exam ENT Exam: Mucous Membranes Moist - Respiratory Exam Respiratory Exam: Clear to Auscultation Bilateral, NORMAL BREATHING PATTERN. absent: Rales, Rhonchi, Wheezes, Respiratory Distress, Stridor - Cardiovascular Exam Cardiovascular Exam: REGULAR RHYTHM. absent: +S1, +S2 - GI/Abdominal Exam GI & Abdominal Exam: Distended, Normal Bowel Sounds, Soft, Tenderness (mild diffuse tenderness). absent: Firm, Guarding, Rebound, Rigid - Extremities Exam Extremities exam: Positive for: normal capillary refill, pedal pulses present (2+ bilateral PT pulses, 1+ bilateral DP pulses). Negative for: pedal edema - Back Exam Back exam: NORMAL INSPECTION - Neurological Exam Neurological exam: Alert, CN II-XII Intact, Oriented x3 Additional comments: upper extremities: 5/5 strength bilaterally, sensation intact Lower extremities: (+) hypertonicity in extension with rigidity; rigidity with bilateral plantar flexion 0/5 strength in lower extremities; decreased sensation over L3, L4, L5, S1 dermatomes, (-) babinski in RLE, babinski unable to be elicited in LLE - Psychiatric Exam Psychiatric exam: Normal Affect, Normal Mood - Skin Skin Exam: Dry, Erythema (to the bilateral lower extremities; blanching), Warm Additional comments: (+) chronic venous stasis to the bilateral lower extremities (+) right fourth toe with missing toenail, with dried blood Results - Vital Signs Recent Vital Signs: Last Vital Signs Temp 97.8 F 04/30/18 21:07 Pulse 72 04/30/18 21:07 Resp 16 04/30/18 21:07 BP 105/65 04/30/18 21:07 Pulse Ox 100 04/30/18 23:18 - Labs Result Diagrams: 04/30/18 19:20 04/30/18 19:20 Labs: Laboratory Results - last 24 hr 04/30/18 04/30/18 04/30/18 18:32 19:20 19:20 WBC 4.7 L RBC 4.08 L Hgb 14.3 Hct 41.7 MCV 102.1 H MCH 35.1 H MCHC 34.4 RDW 13.2 Plt Count 161 MPV 8.5 Neut % (Auto) 44.6 L Lymph % (Auto) 43.8 H [place] % (Auto) 8.6 Eos % (Auto) 1.9 Baso % (Auto) 1.1 Neut # (Auto) 2.1 Lymph # (Auto) 2.0 [place] # (Auto) 0.4 Eos # (Auto) 0.1 Baso # (Auto) 0.1 Sodium 144 Potassium 4.5 Chloride 106 Carbon Dioxide 29 Anion Gap 13 BUN 14 Creatinine 0.7 L Est GFR ( Amer) > 60 Est GFR (Non-Af Amer) > 60 POC Glucose (mg/dL) 100 Random Glucose 101 Calcium 9.5 Phosphorus 4.5 Magnesium 2.2 Total Bilirubin 0.4 AST 87 H D ALT 71 Alkaline Phosphatase 59 Total Creatine Kinase 396 H Total Protein 8.2 Albumin 4.5 Globulin 3.7 Albumin/Globulin Ratio 1.2 Alcohol, Quantitative 168 H Assessment & Plan - Assessment and Plan (Free Text) Assessment: This is a 52 year old male with PMH of etoh abuse, asthma, seizure (etoh induced), back problems, who was BIBA due to bilateral lower extremity weakness x 1 day. Plan: Bilateral lower extremity weakness, rigidity Pt afebrile, no leukocytosis CT Lumbar Spine w/o contrast shows no fracture or traumatic osseous injury. Mild disc osteophyte complexes and disc bulges at L4/L5 and L5/S1 causing mild central canal stenosis and bilateral neural foraminal narrowing. Overall, these findings are stable since the prior study. CT Head without contrast shows No acute hemorrhage or infarct. Findings are consistent with age-related atrophy and chronic small vessel ischemic disease. 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 Neurology, Dr. Espino, consulted; recommendations appreciated Neurochecks q4h F/u vitb12, RPR, HIV AB EtOH abuse Last drink was this afternoon (04/30) EtOH is 168 on admission Will monitor for signs of withdrawal Case discussed with attending physician, Dr. Torres. Christian Sandoval PGY1
[2018-05-01] MEDS ORDERED: Albuterol-Ipratrop 3 mg / 0.5 (3 ml) UD INH PRN (01:18)
[2018-05-01 07:35] LABS: BARBITURATES, UR NEGATIVE (NEGATIVE); BENZODIAZEPINES, UR NEGATIVE (NEGATIVE); OPIATES, UR NEGATIVE (NEGATIVE); PHENCYCLIDINE, UR NEGATIVE (NEGATIVE)
[2018-05-01 07:59] LABS: BASO % 1.2 % (0.0-2.0); EOS # 0.1 K/uL (0.0-0.7); EOS % 3.1 % (0.0-4.0); HEMOGLOBIN 13.5 g/dL (12.0-18.0); LYMPH # 1.4 K/uL (1.0-4.3); LYMPH % 46.3 % (20.0-40.0); MEAN CELL VOLUME 102.1 fL (80.0-94.0); MEAN CORPUSCULAR HEMOGLOBIN 34.9 pg (27.0-31.0); MEAN CORPUSCULAR HGB CONC 34.2 g/dL (33.0-37.0); MEAN PLATELET VOLUME 8.8 fL (7.2-11.7); MONO # 0.4 K/uL (0.0-0.8); MONO % 11.6 % (0.0-10.0); NEUT # 1.2 K/uL (1.8-7.0); NEUT % 37.8 % (50.0-75.0); NRBC % 0.2 % (0.0-2.0); RBC 3.88 Mil/uL (4.40-5.90); RED CELL DISTRIBUTION WIDTH 13.2 % (11.5-14.5); WHITE BLOOD COUNT 3.1 K/uL (4.8-10.8)
--- NOTE | 2018-05-01 08:07 | CP.PCM.PN ---
Subjective - Date & Time of Evaluation Date of Evaluation: 05/01/18 Time of Evaluation: 16:00 - Subjective Subjective: PGY1 Medicine Progress Note for Dr. Torres. Patient seen and examined at bedside. No overnight events reported. Pt stated he feels like his legs are getting stronger. Patient states he is able to move his legs more. No chest pain, SOB, abdominal pain, N/V, f/c, dysuria, hematuria reported. Of note, patient gave poor effort on motor function on physical examination. Objective - Vital Signs/Intake and Output Vital Signs (last 24 hours): Temp Pulse Resp BP Pulse Ox 97.8 F 72 80 H 110/60 96 04/30/18 21:07 04/30/18 21:07 05/01/18 00:25 05/01/18 00:25 05/01/18 00:25 Intake and Output: 05/01/18 05/01/18 06:59 18:59 Intake Total 350 Output Total 600 Balance -250 - Medications Medications: Current Medications Albuterol/Ipratropium (Duoneb 3 Mg/0.5 Mg (3 Ml) Ud) 3 ml INH RQ4 PRN PRN Reason: Shortness of Breath Influenza Virus Vaccine (Fluzone Quad 5079-1490) 60 mcg IM .ONCE ONE Stop: 05/04/18 10:01 Pneumococcal Polyvalent Vaccine (Pneumovax 23 Vaccine) 0.5 ml IM .ONCE ONE Stop: 05/03/18 10:01 - Labs Labs: 04/30/18 19:20 04/30/18 19:20 - Constitutional Appears: Non-toxic, No Acute Distress - Head Exam Head Exam: NORMAL INSPECTION - Eye Exam Eye Exam: Normal appearance - ENT Exam ENT Exam: Mucous Membranes Moist - Respiratory Exam Respiratory Exam: Clear to Ausculation Bilateral, NORMAL BREATHING PATTERN. absent: Rales, Rhonchi, Wheezes - Cardiovascular Exam Cardiovascular Exam: +S1, +S2. absent: Murmur - GI/Abdominal Exam GI & Abdominal Exam: Soft, Normal Bowel Sounds. absent: Firm, Guarding, Rigid - Extremities Exam Extremities Exam: Full ROM. absent: Calf Tenderness, Pedal Edema - Back Exam Back Exam: absent: CVA tenderness (L), CVA tenderness (R) - Neurological Exam Neurological Exam: Alert, Awake, Oriented x3 Additional comments: normal heal to albrecht test, poor effort given, able to move all 4 extremities - Psychiatric Exam Psychiatric exam: Normal Affect, Normal Mood - Skin Skin Exam: Dry, Intact, Normal Color, Warm Additional comments: (+) chronic venous stasis to the bilateral lower extremities (+) right fourth toe with missing toenail, with dried blood Assessment and Plan - Assessment and Plan (Free Text) Assessment: This is a 52 year old male with PMH of etoh abuse, asthma, seizure (etoh induced), back problems, who was BIBA due to bilateral lower extremity weakness x 1 day. Plan: Bilateral lower extremity weakness afebrile, no leukocytosis - CT Lumbar Spine w/o contrast shows no fracture or traumatic osseous injury. Mild disc osteophyte complexes and disc bulges at L4/L5 and L5/S1 causing mild central canal stenosis and bilateral neural foraminal narrowing. Overall, these findings are stable since the prior study. - CT Head without contrast shows No acute hemorrhage or infarct. Findings are consistent with age-related atrophy and chronic small vessel ischemic disease. 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 Neurology, Dr. Espino, consulted; recommendations appreciated - MRI lumbar spine Neurochecks q4h - vitb12 - low @ 222 - vit B12 100 mcg daily - RPR - weakly reactive - F/u FTA ABS - HIV AB - negative EtOH abuse - Last drink was this afternoon (04/30) - EtOH is 168 on admission - Will monitor for signs of withdrawal - ativan 1mg IVP Q6 PRN seizure activity Prophylaxis - DVT: Enoxaparin 40 mg SC - Diet: Heart healthy
--- NOTE | 2018-05-01 08:15 | CT ---
Date of service: 04/30/2018 PROCEDURE: CT HEAD WITHOUT CONTRAST. HISTORY: bilateral leg numbness/paralysis COMPARISON: 01/28/2018. TECHNIQUE: Axial computed tomography images were obtained through the head/brain without intravenous contrast. Radiation dose: Total exam DLP = 1142.01 mGy-cm. This CT exam was performed using one or more of the following dose reduction techniques: Automated exposure control, adjustment of the mA and/or kV according to patient size, and/or use of iterative reconstruction technique. FINDINGS: HEMORRHAGE: No intracranial hemorrhage. BRAIN: There is redemonstration of cystic encephalomalacia in bilateral interfere frontal and left anterior temporal lobes. There are mild chronic microangiopathic changes there is no mass, mass effect or abnormal extra-axial fluid collection. There is no territorial infarction. The midline sagittal structures are normal. VENTRICLES: There is mild age-related global parenchymal volume loss and proportionate enlargement of the ventricles and cortical sulci. CALVARIUM: There is no calvarial fracture or extracranial soft tissue swelling. PARANASAL SINUSES: Predominantly clear. MASTOID AIR CELLS: Predominantly clear. OTHER FINDINGS: None. IMPRESSION: No acute intracranial abnormality. No other significant interval change. A preliminary report was provided by [employer].
[2018-05-01] MEDS ORDERED: Multivitamin (MVI) 10 ML, Thiamine 100 MG, Folic Acid 1 MG in Sodium Chloride 0.9% 1,00... IV ONE (08:17)
[2018-05-01 08:45] LABS: ALB/GLOB RATIO 1.1 (1.0-2.1); ALBUMIN 3.8 g/dL (3.5-5.0); ALT/SGPT 63 U/L (21-72); AST/SGOT 76 U/L (17-59); BLOOD UREA NITROGEN 11 mg/dL (9-20); CALCIUM 9.1 mg/dl (8.6-10.4); GFR NON-AFRICAN AMERICAN > 60
[2018-05-01] MEDS: Enoxaparin 40 mg Syringe SC SCH (09:13)
--- NOTE | 2018-05-01 09:14 | CT ---
Date of service: 04/30/2018 PROCEDURE: CT Lumbar Spine without contrast HISTORY: bilateral leg numbness and weakness COMPARISON: 02/28/2018. TECHNIQUE: Axial computed tomography images were obtained of the lumbar spine without the use of intravenous contrast. Coronal and sagittal reformatted images were created and reviewed. Radiation dose: Total exam DLP = 762.99 mGy-cm. This CT exam was performed using one or more of the following dose reduction techniques: Automated exposure control, adjustment of the mA and/or kV according to patient size, and/or use of iterative reconstruction technique. FINDINGS: VERTEBRAE: There is mild degenerative retrolisthesis of L5 on S1. There is normal lumbar lordosis. There is no acute fracture or spondylolysis. There is mild diffuse bone demineralization. 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 DISCS/SPINAL CANAL/NEURAL FORAMINA: Evaluation of the spinal canal and discs is limited in the absence of intrathecal contrast. Allowing for this, L1-2: Diffuse posterior disc bulge with superimposed left foraminal and far lateral disc protrusions likely impinge on the exiting left L1 nerve root. Mild bilateral facet arthropathy contribute to moderate right and severe left neural foraminal narrowing. L2-3: Diffuse posterior disc bulge and mild ligamentum flavum infolding without central spinal canal stenosis. Mild bilateral facet arthropathy contribute to moderate neural foraminal narrowing. L3-4: Diffuse posterior disc bulge in conjunction with mild ligamentum flavum infolding result in mild spinal canal stenosis. Mild bilateral facet arthropathy contribute to moderate two severe neural foraminal narrowing. L4-5: Diffuse posterior disc bulge in conjunction with moderate ligamentum flavum infolding result in moderate spinal canal stenosis. Moderate bilateral facet arthropathy contributes to severe neural foraminal narrowing. L5-S1: Desiccation of the disc. Diffuse posterior bulge and mild spinal canal stenosis. Moderate bilateral facet arthropathy contribute to moderate neural foraminal narrowing. PARASPINAL SOFT TISSUES: Paraspinous soft tissues are normal. Imaged portion of the retroperitoneum is within normal limits.. OTHER FINDINGS: None. IMPRESSION: No acute fracture or spondylolysis. Multilevel degenerative disc disease superimposed on a mild congenitally narrow spinal canal in the lower lumbar spine, worse at L4-5 with moderate spinal canal stenosis and severe neural foraminal narrowing. At L1-2 diffuse posterior disc bulge with superimposed left foraminal and far lateral disc protrusions likely impinge on the exiting left L1 nerve root. Additional comments as described above. A preliminary report was provided by [employer].
[2018-05-01 09:44] LABS: FOLATE 9.7 ng/mL
--- NOTE | 2018-05-01 11:23 | CP.PCM.CON ---
History of Present Illness - History of Present Illness History of Present Illness: Neurology consult dictated. In brief, states that he went to restorationism and then suddenly could not move legs. On exam: No sensory level, normal sensation. As per Er physician, rectal tone normal. Strength shows give way weakness in lower legs, patient is not giving good effort. reflexes are equal symmetrically. Gait not tested Impression: Patient may be malingering, but we will need MRI L/S spine. CT shows signif icant djd and stenosis. Possible differential could be more profound pathology not visualized on current ct scan. Plan; 1. No intervention at this time. Thank you Dr. hunter Neurology Past Patient History - Infectious Disease Hx of Infectious Diseases: None - Past Medical History & Family History Past Medical History?: Yes - Past Social History Smoking Status: Light Smoker < 10 Cigarettes Daily - PULMONARY Hx Asthma: Yes - NEUROLOGICAL Hx Seizures: Yes (ETOH INDUCED) - MUSCULOSKELETAL/RHEUMATOLOGICAL Hx Arthritis: Yes (BACK; R FX 3RD FINGER) Hx Falls: Yes Hx Fractures: Yes (right hand) - GASTROINTESTINAL Hx Gastrointestinal Disorders: Yes Hx Liver Failure: Yes - PSYCHIATRIC Hx Anxiety: Yes Hx Substance Use: No - SURGICAL HISTORY Hx Surgeries: Yes Hx Orthopedic Surgery: Yes Other/Comment: 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 - ANESTHESIA Hx Anesthesia: Yes Hx Anesthesia Reactions: No Hx Malignant Hyperthermia: No Meds Allergies/Adverse Reactions: Allergies Allergy/AdvReac Type Severity Reaction Status Date / Time EGG Allergy Verified 04/30/18 18:20 milk Allergy Verified 04/30/18 18:20 chocolate Allergy Intermediate Uncoded 04/30/18 18:20 PEANUT BUTTER Allergy Intermediate Uncoded 04/30/18 18:20 - Medications Medications: Current Medications Albuterol/Ipratropium (Duoneb 3 Mg/0.5 Mg (3 Ml) Ud) 3 ml INH RQ4 PRN PRN Reason: Shortness of Breath Enoxaparin Sodium (Lovenox) 40 mg SC DAILY [facility] Last Admin: 05/01/18 09:13 Dose: 40 mg Multivitamins/Vitamin C 10 ml/Thiamine HCl 100 mg/ Folic Acid 1 mg/ Sodium Chloride 1,011.2 mls @ 80 mls/hr IV .[id number] ONE Stop: 05/01/18 20:55 Last Admin: 05/01/18 09:03 Dose: 80 mls/hr Influenza Virus Vaccine (Fluzone Quad [id number]) 60 mcg IM .ONCE ONE Stop: 05/04/18 10:01 Pneumococcal Polyvalent Vaccine (Pneumovax 23 Vaccine) 0.5 ml IM .ONCE ONE Stop: 05/03/18 10:01 Results - Vital Signs Recent Vital Signs: Last Vital Signs Temp 97.8 F 04/30/18 21:07 Pulse 72 04/30/18 21:07 Resp 80 H 05/01/18 00:25 BP 110/60 05/01/18 00:25 Pulse Ox 96 05/01/18 00:25 - Labs Result Diagrams: 05/01/18 07:52 05/01/18 07:52 Labs: Laboratory Results - last 24 hr 04/30/18 04/30/18 04/30/18 18:32 19:20 19:20 WBC 4.7 L RBC 4.08 L Hgb 14.3 Hct 41.7 MCV 102.1 H MCH 35.1 H MCHC 34.4 RDW 13.2 Plt Count 161 MPV 8.5 Neut % (Auto) 44.6 L Lymph % (Auto) 43.8 H [place] % (Auto) 8.6 Eos % (Auto) 1.9 Baso % (Auto) 1.1 Neut # (Auto) 2.1 Lymph # (Auto) 2.0 [place] # (Auto) 0.4 Eos # (Auto) 0.1 Baso # (Auto) 0.1 Sodium 144 Potassium 4.5 Chloride 106 Carbon Dioxide 29 Anion Gap 13 BUN 14 Creatinine 0.7 L Est GFR ( Amer) > 60 Est GFR (Non-Af Amer) > 60 POC Glucose (mg/dL) 100 Random Glucose 101 Calcium 9.5 Phosphorus 4.5 Magnesium 2.2 Total Bilirubin 0.4 AST 87 H D ALT 71 Alkaline Phosphatase 59 Total Creatine Kinase 396 H Total Protein 8.2 Albumin 4.5 Globulin 3.7 Albumin/Globulin Ratio 1.2 Vitamin B12 Folate Urine Opiates Screen Urine Methadone Screen Ur Barbiturates Screen Ur Phencyclidine Scrn Ur Amphetamines Screen U Benzodiazepines Scrn U Oth Cocaine Metabols U Cannabinoids Screen Alcohol, Quantitative 168 H HIV 1&2 Antibody Screen 05/01/18 05/01/18 05/01/18 07:08 07:52 07:52 WBC 3.1 L RBC 3.88 L Hgb 13.5 Hct 39.6 MCV 102.1 H MCH 34.9 H MCHC 34.2 RDW 13.2 Plt Count 147 MPV 8.8 Neut % (Auto) 37.8 L Lymph % (Auto) 46.3 H [place] % (Auto) 11.6 H Eos % (Auto) 3.1 Baso % (Auto) 1.2 Neut # (Auto) 1.2 L Lymph # (Auto) 1.4 [place] # (Auto) 0.4 Eos # (Auto) 0.1 Baso # (Auto) 0.0 Sodium 138 Potassium 4.5 Chloride 104 Carbon Dioxide 28 Anion Gap 11 BUN 11 Creatinine 0.7 L Est GFR ( Amer) > 60 Est GFR (Non-Af Amer) > 60 POC Glucose (mg/dL) Random Glucose 96 Calcium 9.1 Phosphorus 4.7 H Magnesium 1.8 Total Bilirubin 1.2 AST 76 H ALT 63 Alkaline Phosphatase 48 Total Creatine Kinase 260 H Total Protein 7.1 Albumin 3.8 Globulin 3.4 Albumin/Globulin Ratio 1.1 Vitamin B12 222 L Folate 9.7 Urine Opiates Screen Negative Urine Methadone Screen Negative Ur Barbiturates Screen Negative Ur Phencyclidine Scrn Negative Ur Amphetamines Screen Negative U Benzodiazepines Scrn Negative U Oth Cocaine Metabols Negative U Cannabinoids Screen Negative Alcohol, Quantitative HIV 1&2 Antibody Screen 05/01/18 07:52 WBC RBC Hgb Hct MCV MCH MCHC RDW Plt Count MPV Neut % (Auto) Lymph % (Auto) [place] % (Auto) Eos % (Auto) Baso % (Auto) Neut # (Auto) Lymph # (Auto) [place] # (Auto) Eos # (Auto) Baso # (Auto) Sodium Potassium Chloride Carbon Dioxide Anion Gap BUN Creatinine Est GFR ( Amer) Est GFR (Non-Af Amer) POC Glucose (mg/dL) Random Glucose Calcium Phosphorus Magnesium Total Bilirubin AST ALT Alkaline Phosphatase Total Creatine Kinase Total Protein Albumin Globulin Albumin/Globulin Ratio Vitamin B12 Folate Urine Opiates Screen Urine Methadone Screen Ur Barbiturates Screen Ur Phencyclidine Scrn Ur Amphetamines Screen U Benzodiazepines Scrn U Oth Cocaine Metabols U Cannabinoids Screen Alcohol, Quantitative HIV 1&2 Antibody Screen Negative
[2018-05-01 16:24] LABS: RAPID PLASMA REAGIN WEAKLY REACTIVE (NONREACTIVE)
[2018-05-01 17:14] VITALS: RESP 20
--- NOTE | 2018-05-01 22:35 | CON ---
DATE: 05/01/2018 Neurology consult called by Dr. Torres. HISTORY OF PRESENT ILLNESS: This is a 52-year-old male who is homeless, has a history of profound alcohol abuse, asthma, alcohol-induced seizure, lower lumbar radiculopathy, who is ____ because earlier today he was sitting on a chair, drinking as he does usually on a daily basis and he suddenly could not move his legs. He is unable to walk. This was confirmed on arrival to the emergency room, Neurology consult was called. This morning, the patient is awake, alert, and oriented x3. He is doing well, sitting in bed, but he states he cannot move his legs, but he does have sensation. REVIEW OF SYSTEMS: Denies headache, aphasia, dysarthria, weakness of his upper limbs or prior episodes. PAST MEDICAL HISTORY: Alcohol abuse as above. PAST SURGICAL HISTORY: Right third finger partial amputation in 1999. MEDICATIONS: He is not on any medications. ALLERGIES: NO KNOWN DRUG ALLERGIES. PHYSICAL EXAMINATION: GENERAL: The patient is alert, oriented x3. NEUROLOGIC: Cranial nerves II through XII are normal. PERRL. EOMI. Mini mental status 30/30. Strength, upper limbs 5/5, lower limb is 0, but I believe this is effort related. He is, however, able to wiggle his toes, but not able to move his legs on plane or gravity. When the legs are lifted, they fall directly on to the bed. Sensory is intact to fine touch, pin, position. Decreased vibration test bilaterally. He did not have a sensory level. Gait is not tested. Reflexes are +1 in upper and lower limbs bilaterally. LABORATORY DATA: Labs are as follows: White count 2.1, hemoglobin 34, and hematocrit 39.6. Toxicology alcohol positive for 168. Chemistries are normal except for AST which is 76, ALT 63, total CK is 260, B12 is 222. HIV is negative. Report that lumbar spine CT was done and shows the following: L1-L2, diffuse posterior disk bulge with superimposed left foraminal disk protrusions impinging on the left L1 nerve root. L2-L3, diffuse posterior disk bulge. L3-L4, mild canal stenosis. L4-L5, diffuse posterior disk bulge with moderate spinal canal stenosis. L5-S1 desiccation of the disk, diffuse posterior disk bulge, and mild spinal canal stenosis. There are no fractures noted. IMPRESSION: This is a 52-year-old homeless male, who most likely has severe lumbar radiculopathy worse than as shown on current CT scan. I do suspect a component of malingering associated with this patient. However, we will need MRI of the lumbosacral spine to rule out. I do not suspect an epidural abscess in this case; however, we will have to investigate this as well. An epidural abscess would have been visualized on the CAT scan, but MRI is needed. At the moment, we will not intervene using any medication. Thank you for this interesting consult. Kenneth Espino MD
--- NOTE | 2018-05-02 07:39 | CP.PCM.PN ---
Subjective - Date & Time of Evaluation Date of Evaluation: 05/02/18 Time of Evaluation: 08:40 - Subjective Subjective: PGY 1 Medicine Progress Note for Dr. Winston. PAtient seen and examined at bedside. No overnight events reported. Patient denies new complaints, denies chest pain, SOB, nausea, vomiting, abdominal pain, headaches, vision changes. Patient states his leg strength is improving each day. Today he was able to use the restroom via ambulance with assistance. Objective - Vital Signs/Intake and Output Vital Signs (last 24 hours): Temp Pulse Resp BP Pulse Ox 98.5 F 65 20 121/76 95 05/02/18 00:00 05/02/18 00:00 05/02/18 00:00 05/02/18 00:00 05/02/18 00:00 Intake and Output: 05/02/18 05/02/18 06:59 18:59 Intake Total 1090 Balance 1090 - Medications Medications: Current Medications Albuterol/Ipratropium (Duoneb 3 Mg/0.5 Mg (3 Ml) Ud) 3 ml INH RQ4 PRN PRN Reason: Shortness of Breath Cyanocobalamin (Vitamin B12 100 Mcg Tab) 100 mcg PO DAILY [facility] Enoxaparin Sodium (Lovenox) 40 mg SC DAILY [facility] Last Admin: 05/01/18 09:13 Dose: 40 mg Influenza Virus Vaccine (Fluzone Quad [id number]) 60 mcg IM .ONCE ONE Stop: 05/04/18 10:01 Lorazepam (Ativan) 1 mg IVP Q6H PRN PRN Reason: Seizure activity Pneumococcal Polyvalent Vaccine (Pneumovax 23 Vaccine) 0.5 ml IM .ONCE ONE Stop: 05/03/18 10:01 - Labs Labs: 05/01/18 07:52 05/01/18 07:52 - Constitutional Appears: Non-toxic, No Acute Distress - Head Exam Head Exam: NORMAL INSPECTION, NORMOCEPHALIC - Eye Exam Eye Exam: Normal appearance - ENT Exam ENT Exam: Mucous Membranes Moist - Neck Exam Neck Exam: Full ROM - Respiratory Exam Respiratory Exam: Clear to Ausculation Bilateral, NORMAL BREATHING PATTERN. absent: Rales, Rhonchi, Wheezes - Cardiovascular Exam Cardiovascular Exam: +S1, +S2 - GI/Abdominal Exam GI & Abdominal Exam: Soft, Normal Bowel Sounds. absent: Rigid, Diminished Bowel Sounds - Extremities Exam Extremities Exam: absent: Calf Tenderness, Pedal Edema - Back Exam Back Exam: absent: CVA tenderness (L), CVA tenderness (R) - Neurological Exam Neurological Exam: Alert, Awake, Oriented x3 Neuro motor strength exam: Left Upper Extremity: 5, Right Upper Extremity: 5, Left Lower Extremity: 4, Right Lower Extremity: 4 Additional comments: Normal heel to albrecht test - Psychiatric Exam Psychiatric exam: Normal Affect, Normal Mood - Skin Skin Exam: Dry, Intact, Warm Additional comments: hyperpigmentation of lower extremities patella and distal, consistent w/ PVD Assessment and Plan - Assessment and Plan (Free Text) Assessment: This is a 52 year old male with PMH of etoh abuse, asthma, seizure (etoh induced), back problems, who was BIBA due to bilateral lower extremity weakness x 1 day. Plan: Bilateral Leg weakness Bilateral Leg pain - CT Lumbar Spine w/o contrast shows no fracture or traumatic osseous injury. Mild disc osteophyte complexes and disc bulges at L4/L5 and L5/S1 causing mild central canal stenosis and bilateral neural foraminal narrowing. Overall, these findings are stable since the prior study. - CT Head without contrast shows No acute hemorrhage or infarct. Findings are consistent with age-related atrophy and chronic small vessel ischemic disease. 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 - Degenerative joint disease vs tabes dorsalis vs vitamin deficiency vs ? - Neurology, Dr. Espino, consulted; recommendations appreciated - MRI lumbar spine - F/u MRI - vitb12 - low @ 222 - vit B12 100 mcg daily - F/u Folate - RPR - weakly reactive - F/u FTA ABS - HIV AB - negative - Neurochecks q4h - Ibuprofen 400 mg PO Q8H EtOH abuse - Last drink was this afternoon (04/30) - EtOH is 168 on admission - Will monitor for signs of withdrawal - ativan 1mg IVP Q6 PRN seizure activity Prophylaxis - DVT: Enoxaparin 40 mg SC - GI: Pepcid 20 po daily - Diet: Heart healthy - F/u PT recs Possible D/C on 05/03 to 05/04 to [facility] pending FTA- AB results & PT recs
[2018-05-02 08:30] LABS: BASO # 0.1 K/uL (0.0-0.2); BASO % 1.8 % (0.0-2.0); EOS # 0.1 K/uL (0.0-0.7); EOS % 3.5 % (0.0-4.0); LYMPH # 1.4 K/uL (1.0-4.3); LYMPH % 48.1 % (20.0-40.0); MEAN CELL VOLUME 102.5 fL (80.0-94.0); MEAN CORPUSCULAR HEMOGLOBIN 35.4 pg (27.0-31.0); MEAN CORPUSCULAR HGB CONC 34.6 g/dL (33.0-37.0); MEAN PLATELET VOLUME 9.1 fL (7.2-11.7); MONO # 0.3 K/uL (0.0-0.8); MONO % 11.4 % (0.0-10.0); NEUT % 35.2 % (50.0-75.0); NRBC % 0.1 % (0.0-2.0); RBC 3.95 Mil/uL (4.40-5.90); RED CELL DISTRIBUTION WIDTH 13.3 % (11.5-14.5); WHITE BLOOD COUNT 2.9 K/uL (4.8-10.8)
[2018-05-02 08:35] LABS: ALBUMIN 3.5 g/dL (3.5-5.0); ALT/SGPT 65 U/L (21-72); AST/SGOT 79 U/L (17-59); BLOOD UREA NITROGEN 10 mg/dL (9-20); CALCIUM 8.6 mg/dl (8.6-10.4); GFR NON-AFRICAN AMERICAN > 60
[2018-05-02] MEDS: Enoxaparin 40 mg Syringe SC SCH (11:00)
[2018-05-02 19:50] LABS: RAPID PLASMA REAGIN REACTIVE (NONREACTIVE)
[2018-05-03 07:26] LABS: EOS # 0.1 K/uL (0.0-0.7); EOS % 3.5 % (0.0-4.0); HEMOGLOBIN 13.9 g/dL (12.0-18.0); LYMPH # 1.5 K/uL (1.0-4.3); LYMPH % 44.9 % (20.0-40.0); MEAN CORPUSCULAR HGB CONC 33.8 g/dL (33.0-37.0); MEAN PLATELET VOLUME 8.9 fL (7.2-11.7); MONO # 0.3 K/uL (0.0-0.8); MONO % 9.9 % (0.0-10.0); NEUT # 1.3 K/uL (1.8-7.0); NEUT % 40.7 % (50.0-75.0); NRBC % 0.1 % (0.0-2.0); RBC 4.08 Mil/uL (4.40-5.90); WHITE BLOOD COUNT 3.2 K/uL (4.8-10.8)
[2018-05-03 07:27] LABS: MEAN CELL VOLUME 100.4 fL (80.0-94.0)
[2018-05-03 07:31] LABS: ALBUMIN 3.6 g/dL (3.5-5.0); ALT/SGPT 75 U/L (21-72); AST/SGOT 92 U/L (17-59); BLOOD UREA NITROGEN 12 mg/dL (9-20); CALCIUM 8.7 mg/dl (8.6-10.4); GFR NON-AFRICAN AMERICAN > 60
[2018-05-03] MEDS: Enoxaparin 40 mg Syringe SC SCH (09:33)
[2018-05-03] MEDS ORDERED: Pneumococcal 23-Valent Vaccine IM ONE (10:00)
--- NOTE | 2018-05-03 10:09 | MRI ---
Date of service: 05/03/2018 PROCEDURE: MR LUMBAR SPINE WITHOUT CONTRAST HISTORY: djd, spinal stenosis COMPARISON: None available. TECHNIQUE: Multiecho multiplanar sequences were performed through the lumbar spine without the use of intravenous contrast. FINDINGS: Straightened curvature appreciated without spondylolisthesis. Vertebral body heights are preserved. Marrow signal unremarkable. Moderate desiccation is appreciate as well as disc height loss at L1-2 and L5-S1. Conus medullaris unremarkable at the level of T12. Paraspinal soft tissues are unremarkable. T12-L1: No disc herniation, spinal canal stenosis or neural foraminal narrowing. L1-2: No disc herniation. Limited disc bulge is appreciate with moderate facet joint arthropathy without generalized central stenosis identified. L2-3: No disc herniation, spinal canal stenosis or neural foraminal narrowing. [id number] facet arthropathy identified bilaterally. L3-4: No disc herniation, spinal canal stenosis or neural foraminal narrowing. [id number] facet arthropathy identified bilaterally. L4-5: No disc herniation identified. However, there is extensive facet joint degenerative change present at this level with a mild circumferential disc bulge combining to cause mild central canal stenosis and moderate bilateral neural foraminal stenosis. Endplate osteophyte development is seen bilaterally at the level of the neural foramina. L5-S1: No disc herniation. Limited disc osteophyte complex is appreciated combined with facet joint degenerative changes encroaching the lateral recesses symmetrically without causing generalized central canal stenosis. Moderate bilateral neural foraminal stenosis is degenerative as well. OTHER FINDINGS: None. IMPRESSION: 1. No disc herniation or severe spinal stenosis appreciated throughout the lumbar spine. 2. Multilevel degenerative disc and facet joint changes are identified seen worst at L4-5 where mild central stenosis results with moderate bilateral neural foraminal stenosis. Other lesser findings as discussed above, particularly at L5-S1. 3. Straightened lumbar curvature.
--- NOTE | 2018-05-03 11:48 | CP.PCM.CON ---
History of Present Illness - History of Present Illness History of Present Illness: 52 year old male with PMH of etoh abuse, asthma, seizure (etoh induced), back problems, who was BIBA due to bilateral lower extremity weakness since earlier today. Referred for ID eval for + RPR Patient denies prior rx for this FTA-ABS pending PMH: etoh abuse, asthma, seizure (etoh induced), back problems PSH: 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 Meds: none Allx: egg, milkd, chocolate, peanut butter, NKDA Shx: homeless,(+) smoking, (+) etoh abuse; Denies illicit drug use, denies IVDA Review of Systems - Review of Systems All systems: reviewed and no additional remarkable complaints except - Constitutional Constitutional: As Per HPI - EENT Eyes: absent: As Per HPI, Blind Spots, Blurred Vision, Change in Vision, Decreased Night Vision, Diplopia, Discharge, Dry Eye, Exophthalmos, Floaters, Irritation, Itchy Eyes, Loss of Peripheral Vision, Pain, Photophobia, Requires Corrective Lenses, Sees Flashes, Spots in Vision, Tunnel Vision, Other Visual Disturbances, Loss of Vision, Other Ears: absent: As Per HPI, Decreased Hearing, Ear Discharge, Ear Pain, Tinnitus, Abnormal Hearing, Disequilibrium, Dizziness, Other Nose/Mouth/Throat: absent: As Per HPI, Epistaxis, Nasal Congestion, Nasal Discharge, Nasal Obstruction, Nasal Trauma, Nose Pain, Post Nasal Drip, Sinus Pain, Sinus Pressure, Bleeding Gums, Change in Voice, Dental Pain, Dry Mouth, Dysphagia, Halitosis, Hoarsness, Lip Swelling, Mouth Lesions, Mouth Pain, Denise nophagia, Sore Throat, Throat Swelling, Tongue Swelling, Facial Pain, Neck Pain, Neck Mass, Other - Cardiovascular Cardiovascular: As Per HPI - Respiratory Respiratory: As Per HPI - Gastrointestinal Gastrointestinal: absent: As Per HPI, Abdominal Pain, Belching, Bloating, Change in Bowel Habits, Change in Stool Character, Coffee Ground Emesis, Constipation, Cramping, Diarrhea, Dyspepsia, Dysphagia, Early Satiety, Excessive Flatus, Fecal Incontinence, Heartburn, Hematemesis, Hematochezia, Loose Stools, Melena, Nausea, Odynophagia, Temesmus, Vomiting, Other - Genitourinary Genitourinary: absent: As Per HPI, Change in Urinary Stream, Difficulty Urinating, Dysuria, Flank Pain, Hematuria, Pyuria, Nocturia, Urinary Incontinence, Urinary Frequency, Urinary Hesitance, Urinary Urgency, Voiding Freq/Small Amts, Freq UTI, Hx Renal/Bladder Calculi, Hx /Renal Surgery, Bladder Distension, Other - Musculoskeletal Musculoskeletal: As Per HPI, Muscle Weakness - Integumentary Integumentary: Change in Pigmentation - Neurological Neurological: absent: As Per HPI - Psychiatric Psychiatric: As Per HPI - Endocrine Endocrine: absent: As Per HPI, Change in Body Appearance, Change in Libido, Cold Intolorance, Deepening of Voice, Excessive Sweating, Fatigue, Flushing, Heat Intolorance, Increase in Ring/Shoe/Hat Size, Palpitations, Polydipsia, Polyphagi a, Polyuria, Other - Hematologic/Lymphatic Hematologic: absent: As Per HPI, Easy Bleeding, Easy Bruising, Lymphadenopathy, Other Past Patient History - Infectious Disease Hx of Infectious Diseases: None - Past Medical History & Family History Past Medical History?: Yes - Past Social History Smoking Status: Light Smoker < 10 Cigarettes Daily - PULMONARY Hx Asthma: Yes - NEUROLOGICAL Hx Seizures: Yes (ETOH INDUCED) - MUSCULOSKELETAL/RHEUMATOLOGICAL Hx Arthritis: Yes (BACK; R FX 3RD FINGER) - GASTROINTESTINAL Hx Gastrointestinal Disorders: Yes Hx Liver Failure: Yes - PSYCHIATRIC Hx Anxiety: Yes Hx Substance Use: No - SURGICAL HISTORY Hx Surgeries: Yes Hx Orthopedic Surgery: Yes Other/Comment: 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 - ANESTHESIA Hx Anesthesia: Yes Hx Anesthesia Reactions: No Hx Malignant Hyperthermia: No Meds Allergies/Adverse Reactions: Allergies Allergy/AdvReac Type Severity Reaction Status Date / Time EGG Allergy Verified 04/30/18 18:20 milk Allergy Verified 04/30/18 18:20 chocolate Allergy Intermediate Uncoded 04/30/18 18:20 PEANUT BUTTER Allergy Intermediate Uncoded 04/30/18 18:20 - Medications Medications: Current Medications Albuterol/Ipratropium (Duoneb 3 Mg/0.5 Mg (3 Ml) Ud) 3 ml INH RQ4 PRN PRN Reason: Shortness of Breath Cyanocobalamin (Vitamin B12 100 Mcg Tab) 100 mcg PO DAILY [facility] Last Admin: 05/03/18 09:33 Dose: 100 mcg Enoxaparin Sodium (Lovenox) 40 mg SC DAILY [facility] Last Admin: 05/03/18 09:33 Dose: 40 mg Famotidine (Pepcid) 20 mg PO DAILY [facility] Last Admin: 05/03/18 09:32 Dose: 20 mg Ibuprofen (Motrin Tab) 400 mg PO Q8 PRN PRN Reason: Pain, moderate (4-7) Last Admin: 05/02/18 21:41 Dose: 400 mg Influenza Virus Vaccine (Fluzone Quad [id number]) 60 mcg IM .ONCE ONE Stop: 05/04/18 10:01 Lorazepam (Ativan) 1 mg IVP Q6H PRN PRN Reason: Seizure activity Physical Exam - Constitutional Appears: Non-toxic, Chronically Ill - Head Exam Head Exam: NORMOCEPHALIC - Eye Exam Eye Exam: absent: Scleral icterus - ENT Exam ENT Exam: Mucous Membranes Dry, Normal External Ear Exam - Neck Exam Neck exam: Negative for: Lymphadenopathy - Respiratory Exam Respiratory Exam: Decreased Breath Sounds, Rhonchi - Cardiovascular Exam Cardiovascular Exam: REGULAR RHYTHM, +S1, +S2 - GI/Abdominal Exam GI & Abdominal Exam: Diminished Bowel Sounds, Soft. absent: Tenderness - Rectal Exam Rectal Exam: Deferred - Exam Exam: NORMAL INSPECTION - Extremities Exam Extremities exam: Positive for: pedal edema, tenderness. Negative for: calf tenderness, normal inspection, pedal pulses present Additional comments: decreased pulses atri]ophy hyperpigmentation both legs weakness - Back Exam Back exam: absent: CVA tenderness (L), CVA tenderness (R), paraspinal tenderness - Psychiatric Exam Psychiatric exam: Depressed - Skin Skin Exam: Dry Results - Vital Signs Recent Vital Signs: Last Vital Signs Temp 98.1 F 05/03/18 08:30 Pulse 73 05/03/18 08:30 Resp 20 05/03/18 08:30 BP 135/81 05/03/18 08:30 Pulse Ox 96 05/03/18 08:30 - Labs Result Diagrams: 05/03/18 06:54 05/03/18 06:54 Labs: Laboratory Results - last 24 hr 05/02/18 05/03/18 05/03/18 08:07 06:54 06:54 WBC 3.2 L RBC 4.08 L Hgb 13.9 Hct 41.0 MCV 100.4 H D MCH 34.0 H MCHC 33.8 RDW 13.0 Plt Count 135 MPV 8.9 Neut % (Auto) 40.7 L Lymph % (Auto) 44.9 H [place] % (Auto) 9.9 Eos % (Auto) 3.5 Baso % (Auto) 1.0 Neut # (Auto) 1.3 L Lymph # (Auto) 1.5 [place] # (Auto) 0.3 Eos # (Auto) 0.1 Baso # (Auto) 0.0 Sodium 137 Potassium 4.1 Chloride 102 Carbon Dioxide 27 Anion Gap 12 BUN 12 Creatinine 0.7 L Est GFR ( Amer) > 60 Est GFR (Non-Af Amer) > 60 Random Glucose 97 Calcium 8.7 Phosphorus 4.0 Magnesium 2.1 Total Bilirubin 0.7 AST 92 H ALT 75 H Alkaline Phosphatase 49 Total Protein 7.1 Albumin 3.6 Globulin 3.5 Albumin/Globulin Ratio 1.0 RPR Titer 1:2 H RPR Reactive H Assessment & Plan (1) Bilateral leg weakness Status: Acute (2) Alcohol abuse Status: Acute (3) Anxiety Status: Acute (4) Asthma Status: Acute (5) Homelessness Status: Acute (6) Leg pain, bilateral Status: Acute (7) Spinal stenosis of lumbosacral region Status: Acute (8) Positive RPR test Assessment and Plan: await FTA=ABS r/o false positive vs late latent syphilis' unlikley but may need LP to r/o HEPATOLOGY PHYSICIAN involvemt if FTA-ABS Positive Status: Acute - Assessment and Plan (Free Text) Assessment: + RPR- could be chronic however patient denies prior rx If FTA-ABS + could consider LP to r/o HEPATOLOGY PHYSICIAN involvement and would need IV Penicillin for this
--- NOTE | 2018-05-03 14:34 | CP.PCM.PN ---
Subjective - Date & Time of Evaluation Date of Evaluation: 05/03/18 Time of Evaluation: 10:45 - Subjective Subjective: PGY-1 Medicine Progress Note for Dr. Torres's service Patient was seen and examined at bedside this morning. Patient is improving from his b/l extremity weakness and sensation. Patient denies any fever, chest pain, SOB, nausea, vomiting, abdominal pain, or dysuria. Objective - Vital Signs/Intake and Output Vital Signs (last 24 hours): Temp Pulse Resp BP Pulse Ox 98.1 F 73 20 135/81 96 05/03/18 08:30 05/03/18 08:30 05/03/18 08:30 05/03/18 08:30 05/03/18 08:30 Intake and Output: 05/03/18 05/03/18 06:59 18:59 Intake Total 450 Balance 450 - Medications Medications: Current Medications Albuterol/Ipratropium (Duoneb 3 Mg/0.5 Mg (3 Ml) Ud) 3 ml INH RQ4 PRN PRN Reason: Shortness of Breath Cyanocobalamin (Vitamin B12 100 Mcg Tab) 100 mcg PO DAILY [facility] Last Admin: 05/03/18 09:33 Dose: 100 mcg Enoxaparin Sodium (Lovenox) 40 mg SC DAILY [facility] Last Admin: 05/03/18 09:33 Dose: 40 mg Famotidine (Pepcid) 20 mg PO DAILY [facility] Last Admin: 05/03/18 09:32 Dose: 20 mg Ibuprofen (Motrin Tab) 400 mg PO Q8 PRN PRN Reason: Pain, moderate (4-7) Last Admin: 05/02/18 21:41 Dose: 400 mg Influenza Virus Vaccine (Fluzone Quad [id number]) 60 mcg IM .ONCE ONE Stop: 05/04/18 10:01 Lorazepam (Ativan) 1 mg IVP Q6H PRN PRN Reason: Seizure activity - Labs Labs: 05/03/18 06:54 05/03/18 06:54 - Constitutional Appears: Non-toxic, No Acute Distress - Head Exam Head Exam: ATRAUMATIC, NORMOCEPHALIC - Eye Exam Eye Exam: EOMI, Normal appearance - Respiratory Exam Respiratory Exam: Clear to Ausculation Bilateral, NORMAL BREATHING PATTERN. absent: Accessory Muscle Use - Cardiovascular Exam Cardiovascular Exam: REGULAR RHYTHM, +S1, +S2. absent: JVD - GI/Abdominal Exam GI & Abdominal Exam: Soft, Normal Bowel Sounds. absent: Distended, Firm, Guarding, Rigid, Tenderness - Extremities Exam Extremities Exam: Normal Inspection - Back Exam Back Exam: NORMAL INSPECTION - Neurological Exam Neurological Exam: Alert, Awake, Oriented x3 Neuro motor strength exam: Left Upper Extremity: 5, Right Upper Extremity: 5, Left Lower Extremity: 4, Right Lower Extremity: 4 - Psychiatric Exam Psychiatric exam: Normal Affect, Normal Mood - Skin Skin Exam: Intact, Normal Color Assessment and Plan - Assessment and Plan (Free Text) Assessment: Patient is a 52 year old male with PMH of Etoh abuse, asthma, seizure (etoh ind uced), back problems, who was BIBA due to bilateral lower extremity weakness x [address] on admission reports no acute intracranial abnormality. Lumbar CT on admission reports L4-L5 moderate spinal stenosis with no acute fractures. Neurology was consulted for radiculopathy. RPR was ordered and was positive. ID was consulted for possible tertiary syphilis. Patient states of improved weakness and sensation b/l lower extremities. Plan: Bilateral Leg weakness Neurology consulted: Dr. Espino -recommendations below ID consulted: Dr. Perez - pending FTA-Abs; if possible, consider LP to r/o SALVAGE ENGINEERING TECHNICIAN symptoms; If LP study suggestive positive then consider IV pencillin MRI Lumbar spine (05/03): multilevel degenerative disc and facet on L4-L5 with b/l neural foraminal stenosis. Mostly at L5-S1 CT Lumbar Spine w/o contrast (04/30) shows no fracture or traumatic osseous injury. Mild disc osteophyte complexes and disc bulges at L4/L5 and L5/S1 ca using mild central canal stenosis and bilateral neural foraminal narrowing. Overall, these findings are stable since the prior study. CT Head without contrast (04/30) shows No acute hemorrhage or infarct. Findings are consistent with age-related atrophy and chronic small vessel ischemic disease. 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 Neurology, Dr. Espino, consulted; recommendations appreciated Vitamin B12 deficiency: B12 100 mcg daily Folate normal RPR - weakly reactive RPR Titer: 1:2 FTA Abs pending HIV AB - negative Neurochecks q4h Ibuprofen 400 mg PO Q8H EtOH use disorder EtOH is 168 on admission Ativan 1mg IVP Q6 PRN seizure activity Seizure precaution Elevated LFTs 2/2 recent alcohol use trend AM CMP Prophylaxis DVT: Enoxaparin 40 mg SC GI: Pepcid 20 po daily Diet: Heart healthy F/u PT recs Disposition: Pending [facility] placement Claritza Lopez PGY-1 Medical management discussed with Dr. Torres
--- NOTE | 2018-05-03 15:18 | CP.PCM.PCO ---
Physician Communication Note - Physician Communication Note Physician Communication Note: L-Spine MRI reviewed; Neuro signing off. Cont current treatment. Thank you.
[2018-05-04 06:27] LABS: BASO % 0.6 % (0.0-2.0); EOS # 0.1 K/uL (0.0-0.7); EOS % 2.2 % (0.0-4.0); HEMOGLOBIN 15.1 g/dL (12.0-18.0); LYMPH # 1.5 K/uL (1.0-4.3); LYMPH % 30.5 % (20.0-40.0); MEAN CORPUSCULAR HEMOGLOBIN 35.5 pg (27.0-31.0); MEAN CORPUSCULAR HGB CONC 34.8 g/dL (33.0-37.0); MEAN PLATELET VOLUME 8.9 fL (7.2-11.7); MONO # 0.4 K/uL (0.0-0.8); MONO % 9.1 % (0.0-10.0); NEUT # 2.8 K/uL (1.8-7.0); NEUT % 57.6 % (50.0-75.0); NRBC % 0.2 % (0.0-2.0); RBC 4.24 Mil/uL (4.40-5.90); WHITE BLOOD COUNT 4.8 K/uL (4.8-10.8)
[2018-05-04 07:32] LABS: ALT/SGPT 96 U/L (21-72); AST/SGOT 113 U/L (17-59); BLOOD UREA NITROGEN 12 mg/dL (9-20); GFR NON-AFRICAN AMERICAN > 60
--- NOTE | 2018-05-04 09:34 | CP.PCM.PN ---
Subjective - Date & Time of Evaluation Date of Evaluation: 05/04/18 Time of Evaluation: 09:32 - Subjective Subjective: PGY-1 Medicine Progress Note for Dr. Torres's service Patient seen and examined at bedside. Patient offers no acute complaints. Patient improved strength in lower extremities. Patient denies fevers, chills, chest pain, sob, n/v, constipation or diarrhea, and dysuria. Objective - Vital Signs/Intake and Output Vital Signs (last 24 hours): Temp Pulse Resp BP Pulse Ox 98 F 69 20 120/77 95 05/04/18 07:47 05/04/18 07:47 05/04/18 07:47 05/04/18 07:47 05/04/18 07:47 Intake and Output: 05/04/18 05/04/18 06:59 18:59 Intake Total 450 Output Total 600 Balance -150 - Medications Medications: Current Medications Albuterol/Ipratropium (Duoneb 3 Mg/0.5 Mg (3 Ml) Ud) 3 ml INH RQ4 PRN PRN Reason: Shortness of Breath Cyanocobalamin (Vitamin B12 100 Mcg Tab) 100 mcg PO [facility]ILY [facility] Last Admin: 05/03/18 09:33 Dose: 100 mcg Enoxaparin Sodium (Lovenox) 40 mg SC [facility]ILY [facility] Last Admin: 05/03/18 09:33 Dose: 40 mg Famotidine (Pepcid) 20 mg PO DAILY [facility] Last Admin: 05/03/18 09:32 Dose: 20 mg Ibuprofen (Motrin Tab) 400 mg PO Q8 PRN PRN Reason: Pain, moderate (4-7) Last Admin: 05/02/18 21:41 Dose: 400 mg Influenza Virus Vaccine (Fluzone Quad [id number]) 60 mcg IM .ONCE ONE Stop: 05/04/18 10:01 Lorazepam (Ativan) 1 mg IVP Q6H PRN PRN Reason: Seizure activity - Labs Labs: 05/04/18 06:18 05/04/18 06:18 - Additional Findings Additional findings: - Constitutional Appears: Non-toxic, No Acute Distress - Head Exam Head Exam: ATRAUMATIC, NORMOCEPHALIC - Eye Exam Eye Exam: EOMI, Normal appearance - Respiratory Exam Respiratory Exam: Clear to Ausculation Bilateral, NORMAL BREATHING PATTERN. absent: Accessory Muscle Use - Cardiovascular Exam Cardiovascular Exam: REGULAR RHYTHM, +S1, +S2. absent: JVD - GI/Abdominal Exam GI & Abdominal Exam: Soft, Normal Bowel Sounds. absent: Distended, Firm, Guarding, Rigid, Tenderness - Extremities Exam Extremities Exam: Normal Inspection - Back Exam Back Exam: NORMAL INSPECTION - Neurological Exam Neurological Exam: Alert, Awake, Oriented x3 Neuro motor strength exam: Left Upper Extremity: 5, Right Upper Extremity: 5, Left Lower Extremity: 4, Right Lower Extremity: 4 - Psychiatric Exam Psychiatric exam: Normal Affect, Normal Mood - Skin Skin Exam: Intact, Normal Color Assessment and Plan - Assessment and Plan (Free Text) Assessment: Patient is a 52 year old male with PMH of Etoh abuse, asthma, seizure (etoh induced), back problems, who was BIBA due to bilateral lower extremity weakness x [address] on admission reports no acute intracranial abnormality. Lumbar CT on admission reports L4-L5 moderate spinal stenosis with no acute fractures. Neurology was consulted for radiculopathy. RPR was ordered and was positive. ID was consulted for possible tertiary syphilis. Patient states of improved weakn ess and sensation b/l lower extremities. Plan: Bilateral Leg weakness Neurology consulted: Dr. Espino - has reviewed imaging and signed off ID consulted: Dr. Perez - pending FTA-Abs; if possible, consider LP to r/o METALLURGICAL ENGINEERING TECHNICIAN symptoms; If LP study suggestive positive then consider IV pencillin MRI Lumbar spine (05/03): multilevel degenerative disc and facet on L4-L5 with b/l neural foraminal stenosis. Mostly at L5-S1 CT Lumbar Spine w/o contrast (04/30) shows no fracture or traumatic osseous injury. Mild disc osteophyte complexes and disc bulges at L4/L5 and L5/S1 causing mild central canal stenosis and bilateral neural foraminal narrowing. Overall, these findings are stable since the prior study. CT Head without contrast (04/30) shows No acute hemorrhage or infarct. Findings are consistent with age-related atrophy and chronic small vessel ischemic disease. 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 Neurology, Dr. Espino, consulted; recommendations appreciated Vitamin B12 deficiency: B12 100 mcg daily Folate normal RPR - weakly reactive RPR Titer: 1:2 FTA Abs pending HIV AB - negative Neurochecks q4h Ibuprofen 400 mg PO Q8H EtOH use disorder EtOH is 168 on admission Ativan 1mg IVP Q6 PRN seizure activity Seizure precaution Elevated LFTs 2/2 recent alcohol use; reconsider as LFTs still trending up w/o alcohol use D/C lovenox for SCDs; consider syphilis induced elevated liver function enzymes if no improvement after AC held trend AM CMP Prophylaxis DVT: SCDs, Enoxaparin 40 mg SC- held GI: Pepcid 20 po daily Diet: Heart healthy Continue PT Disposition: Pending [facility] placement Claritza Lopez PGY-1 Medical management discussed with Dr. Torres
[2018-05-04] MEDS ORDERED: Influenza Vaccine 60 MCG/0.5 ML SYR (3 yr & up) IM ONE (10:00)
[2018-05-04] MEDS: Enoxaparin 40 mg Syringe SC SCH (10:08)
[2018-05-04] MEDS ORDERED: Influenza Vaccine 60 mcg/0.5 mL SYR (4YR UP) IM ONE (11:45)
[2018-05-05 06:14] LABS: BASO % 0.4 % (0.0-2.0); EOS # 0.1 K/uL (0.0-0.7); EOS % 2.8 % (0.0-4.0); HEMOGLOBIN 14.7 g/dL (12.0-18.0); LYMPH # 1.7 K/uL (1.0-4.3); LYMPH % 40.9 % (20.0-40.0); MEAN CELL VOLUME 100.1 fL (80.0-94.0); MEAN PLATELET VOLUME 8.8 fL (7.2-11.7); MONO # 0.4 K/uL (0.0-0.8); MONO % 10.3 % (0.0-10.0); NEUT # 1.9 K/uL (1.8-7.0); NEUT % 45.6 % (50.0-75.0); RBC 4.33 Mil/uL (4.40-5.90); RED CELL DISTRIBUTION WIDTH 13.1 % (11.5-14.5); WHITE BLOOD COUNT 4.2 K/uL (4.8-10.8)
[2018-05-05 07:17] LABS: ALB/GLOB RATIO 1.1 (1.0-2.1); ALBUMIN 4.1 g/dL (3.5-5.0); ALT/SGPT 111 U/L (21-72); AST/SGOT 116 U/L (17-59); BLOOD UREA NITROGEN 12 mg/dL (9-20); GFR NON-AFRICAN AMERICAN > 60
--- NOTE | 2018-05-05 09:37 | CP.PCM.PN ---
Subjective - Date & Time of Evaluation Date of Evaluation: 05/05/18 Time of Evaluation: 09:30 - Subjective Subjective: PGY-1 Medicine Progress Note for Dr. Torres's service Patient seen and examined at bedside. Patient reports increased sensation and strength in bilateral lower extremities. Patient denies fevers, chills, chest p ain, sob, n/v, constipation or diarrhea, and dysuria. Objective - Vital Signs/Intake and Output Vital Signs (last 24 hours): Temp Pulse Resp BP Pulse Ox 98.2 F 65 20 125/79 97 05/05/18 07:53 05/05/18 07:53 05/05/18 07:53 05/05/18 07:53 05/05/18 07:53 Intake and Output: 05/05/18 05/05/18 06:59 18:59 Intake Total 980 Output Total 600 Balance 380 - Medications Medications: Current Medications Albuterol/Ipratropium (Duoneb 3 Mg/0.5 Mg (3 Ml) Ud) 3 ml INH RQ4 PRN PRN Reason: Shortness of Breath Cyanocobalamin (Vitamin B12 100 Mcg Tab) 100 mcg PO DAILY [facility] Last Admin: 05/04/18 10:09 Dose: 100 mcg Enoxaparin Sodium (Lovenox) 40 mg SC DAILY [facility] Last Admin: 05/04/18 10:08 Dose: 40 mg Famotidine (Pepcid) 20 mg PO DAILY [facility] Last Admin: 05/04/18 10:09 Dose: 20 mg Ibuprofen (Motrin Tab) 400 mg PO Q8 PRN PRN Reason: Pain, moderate (4-7) Last Admin: 05/02/18 21:41 Dose: 400 mg Lorazepam (Ativan) 1 mg IVP Q6H PRN PRN Reason: Seizure activity - Labs Labs: 05/05/18 06:05 05/05/18 06:05 - Additional Findings Additional findings: - Constitutional Appears: Non-toxic, No Acute Distress - Head Exam Head Exam: ATRAUMATIC, NORMOCEPHALIC - Eye Exam Eye Exam: EOMI, Normal appearance - Respiratory Exam Respiratory Exam: Clear to Ausculation Bilateral, NORMAL BREATHING PATTERN. absent: Accessory Muscle Use - Cardiovascular Exam Cardiovascular Exam: REGULAR RHYTHM, +S1, +S2. absent: JVD - GI/Abdominal Exam GI & Abdominal Exam: Soft, Normal Bowel Sounds. absent: Distended, Firm, Guarding, Rigid, Tenderness - Extremities Exam Extremities Exam: Normal Inspection - Back Exam Back Exam: NORMAL INSPECTION - Neurological Exam Neurological Exam: Alert, Awake, Oriented x3 Neuro motor strength exam: Left Upper Extremity: 5, Right Upper Extremity: 5, Left Lower Extremity: 4, Right Lower Extremity: 4 - Psychiatric Exam Psychiatric exam: Normal Affect, Normal Mood - Skin Skin Exam: Intact, Normal Color Assessment and Plan - Assessment and Plan (Free Text) Assessment: Patient is a 52 year old male with PMH of Etoh abuse, asthma, seizure (etoh induced), back problems, who was BIBA due to bilateral lower extremity weakness x [address] on admission reports no acute intracranial abnormality. Lumbar CT on admission reports L4-L5 moderate spinal stenosis with no acute fractures. Neurology was consulted for radiculopathy. RPR was ordered and was positive. ID was consulted for possible tertiary syphilis. Patient states of improved weakness and sensation b/l lower extremities. U/S of lower extremities was ordered and is pending. FTA-Abs is reactive. Plan: Bilateral Leg weakness Neurology consulted: Dr. Espino - has reviewed imaging and signed off ID consulted: Dr. Perez - FTA-Abs positive; possible consider LP to r/o LINING STITCHER symptoms; If LP study suggestive positive then consider IV pencillin MRI Lumbar spine (05/03): multilevel degenerative disc and facet on L4-L5 with b/l neural foraminal stenosis. Mostly at L5-S1 CT Lumbar Spine w/o contrast (04/30) shows no fracture or traumatic osseous injury. Mild disc osteophyte complexes and disc bulges at L4/L5 and L5/S1 causi ng mild central canal stenosis and bilateral neural foraminal narrowing. Overall, these findings are stable since the prior study. CT Head without contrast (04/30) shows No acute hemorrhage or infarct. Findings are consistent with age-related atrophy and chronic small vessel ischemic disease. 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 Vitamin B12 deficiency: B12 100 mcg daily; Folate normal; Neurochecks RPR - weakly reactive FTA Abs reactive HIV AB - negative Ibuprofen 400 mg PO Q8H U/S lower extremity: Full read pending- prelim negative for PAD EtOH use disorder EtOH is 168 on admission Ativan 1mg IVP Q6 PRN seizure activity Seizure precaution Elevated LFTs unknown etiology not medication induced, possible syphilis induced (rare), no recent alcohol use since admission Repeat CMP in AM Prophylaxis DVT: SCDs, Enoxaparin 40 mg SC- held (may restart in AM if LFTS remain elevated) GI: Pepcid 20 po daily Diet: Heart healthy Continue PT Disposition: Pending [facility] placement Claritza Lopez PGY-1 Medical management discussed with Dr. Torres
--- NOTE | 2018-05-05 12:06 | VASCLAB ---
Date of service: 05/04/2018 STUDY DESCRIPTION: Lower Extremity Arterial Exam (PVR). HISTORY: Pain in limb, Weak pulses, Skin changes, atrophy. PRIORS: None. TECHNIQUE: Pulse volume recording waveforms and segmental pressures of bilateral lower extremities at multiple levels were obtained. Ankle Brachial Indices (ABIs) were calculated. Report prepared by LEA Larose, RVT RIGHT LOWER EXTREMITY: * Brachial artery: Pressure - 121 mmHg. * High thigh: Pressure - 150 mmHg: Ratio - 1.24: PVR waveform - Pulsatile * Low thigh: Pressure - 157 mmHg: Ratio - 1.30 PVR waveform: Pulsatile * Calf: Pressure - 148 mmHg: Ratio - 1.22 PVR waveform: Pulsatile * Posterior tibial Artery: Pressure - 140 mmHg: Ratio - 1.16 PVR waveform: Pulsatile * Dorsalis pedis Artery: Pressure - 120 mmHg: Ratio - 0.99 PVR waveform: Pulsatile * Great toe: Pressure - mmHg: Ratio - PVR waveform: Ankle brachial index (JEANNETTE): 1.16 LEFT LOWER EXTREMITY: * Brachial artery: Pressure - 114 mmHg. * High thigh: Pressure - 138 mmHg: Ratio - 1.14: PVR waveform - Pulsatile * Low thigh: Pressure - 156 mmHg: Ratio - 1.29 PVR waveform: Pulsatile * Calf: Pressure - 146 mmHg: Ratio - 1.21 PVR waveform: Pulsatile * Posterior tibial Artery: Pressure - 135 mmHg: Ratio - 1.12 PVR waveform: Pulsatile * Dorsalis pedis Artery: Pressure - 127 mmHg: Ratio - 1.05 PVR waveform: Pulsatile * Great toe: Pressure - mmHg: Ratio - PVR waveform: Ankle brachial index (JEANNETTE): 1.12 OTHER FINDINGS: Right: Left: IMPRESSION: Right: There was no evidence of hemodynamically significant arterial insufficiency in the right lower extremity. Left: There was no evidence of hemodynamically significant arterial insufficiency in the left lower extremity.
--- NOTE | 2018-05-05 19:03 | CP.PCM.PN ---
Subjective - Date & Time of Evaluation Date of Evaluation: 05/05/18 Time of Evaluation: 08:00 - Subjective Subjective: events noted denies previous treatment / infection for possible LP vs empiric rx with 10 days IV PCN Objective - Vital Signs/Intake and Output Vital Signs (last 24 hours): Temp Pulse Resp BP Pulse Ox 98.2 F 65 20 125/79 97 05/05/18 07:53 05/05/18 07:53 05/05/18 07:53 05/05/18 07:53 05/05/18 07:53 Intake and Output: 05/05/18 05/06/18 18:59 06:59 Intake Total 300 Balance 300 - Medications Medications: Current Medications Albuterol/Ipratropium (Duoneb 3 Mg/0.5 Mg (3 Ml) Ud) 3 ml INH RQ4 PRN PRN Reason: Shortness of Breath Cyanocobalamin (Vitamin B12 100 Mcg Tab) 100 mcg PO DAILY [facility] Last Admin: 05/05/18 10:10 Dose: 100 mcg Enoxaparin Sodium (Lovenox) 40 mg SC DAILY [facility] Last Admin: 05/04/18 10:08 Dose: 40 mg Famotidine (Pepcid) 20 mg PO DAILY [facility] Last Admin: 05/05/18 10:10 Dose: 20 mg Ibuprofen (Motrin Tab) 400 mg PO Q8 PRN PRN Reason: Pain, moderate (4-7) Last Admin: 05/05/18 18:02 Dose: 400 mg Lorazepam (Ativan) 1 mg IVP Q6H PRN PRN Reason: Seizure activity - Labs Labs: 05/05/18 06:05 05/05/18 06:05 Assessment and Plan (1) Bilateral leg weakness Status: Acute (2) Alcohol abuse Status: Acute (3) Anxiety Status: Acute (4) Asthma Status: Acute (5) Homelessness Status: Acute (6) Leg pain, bilateral Status: Acute (7) Spinal stenosis of lumbosacral region Status: Acute (8) Positive RPR test Status: Acute
[2018-05-06 07:47] LABS: EOS # 0.1 K/uL (0.0-0.7); EOS % 3.4 % (0.0-4.0); HEMOGLOBIN 14.8 g/dL (12.0-18.0); LYMPH # 1.2 K/uL (1.0-4.3); LYMPH % 40.5 % (20.0-40.0); MEAN CORPUSCULAR HGB CONC 34.2 g/dL (33.0-37.0); MONO # 0.4 K/uL (0.0-0.8); NEUT # 1.3 K/uL (1.8-7.0); NEUT % 43.1 % (50.0-75.0); NRBC % 0.1 % (0.0-2.0); RBC 4.24 Mil/uL (4.40-5.90); RED CELL DISTRIBUTION WIDTH 13.1 % (11.5-14.5)
[2018-05-06 07:48] LABS: MEAN CELL VOLUME 102.2 fL (80.0-94.0)
[2018-05-06 08:09] LABS: ALB/GLOB RATIO 1.1 (1.0-2.1); ALBUMIN 4.1 g/dL (3.5-5.0); ALT/SGPT 142 U/L (21-72); AST/SGOT 146 U/L (17-59); BLOOD UREA NITROGEN 9 mg/dL (9-20); CALCIUM 9.2 mg/dl (8.6-10.4); GFR NON-AFRICAN AMERICAN > 60
--- NOTE | 2018-05-06 14:26 | RAD ---
Date of service: 05/06/2018 HISTORY: verify right PICC COMPARISON: 02/07/2018 FINDINGS: LUNGS: No consolidation. Clear lungs. With trace note of platelike atelectasis and/or trace scarring lateral right costophrenic angle-similar PLEURA: No significant pleural effusion identified, no pneumothorax apparent. CARDIOVASCULAR: There is absence of aortic atherosclerotic calcification on x-ray. Normal cardiac size. No pulmonary vascular congestion. Right PICC line inserted tip superior vena cava. OSSEOUS STRUCTURES: Moderate thoracic spondylosis. Bilateral shoulder arthrosis. VISUALIZED UPPER ABDOMEN: Normal. OTHER FINDINGS: None. IMPRESSION: Interval insertion right PICC line tip superior vena cava. No pneumothorax seen. Platelike atelectasis and/or trace scarring lateral right costophrenic angle-similar. No interval pathology noted
--- NOTE | 2018-05-06 15:40 | CP.PCM.PN ---
Subjective - Date & Time of Evaluation Date of Evaluation: 05/06/18 Time of Evaluation: 11:00 - Subjective Subjective: PGY-1 Medicine Progress Note for Dr. Torres's service Patient seen and examined at bedside. Patient offers no acute complaints. Patient reports increase strength in bilateral lower extremities but states he cannot ambulate properly with his right foot. States he must drag his right foot because it does not bend at the knee. Patient had PICC line today. Patient denies fevers, chills, chest pain, sob, n/v, constipation or diarrhea, and dysuria. Objective - Vital Signs/Intake and Output Vital Signs (last 24 hours): Temp Pulse Resp BP Pulse Ox 98.7 F 76 20 118/80 97 05/06/18 07:36 05/06/18 07:36 05/06/18 07:36 05/06/18 07:36 05/06/18 07:36 Intake and Output: 05/06/18 05/06/18 06:59 18:59 Intake Total 750 300 Output Total 1800 900 Balance -1050 -600 - Medications Medications: Current Medications Albuterol/Ipratropium (Duoneb 3 Mg/0.5 Mg (3 Ml) Ud) 3 ml INH RQ4 PRN PRN Reason: Shortness of Breath Cyanocobalamin (Vitamin B12 100 Mcg Tab) 100 mcg PO DAILY [facility] Last Admin: 05/06/18 10:45 Dose: 100 mcg Enoxaparin Sodium (Lovenox) 40 mg SC DAILY [facility] Last Admin: 05/04/18 10:08 Dose: 40 mg Famotidine (Pepcid) 20 mg PO DAILY [facility] Last Admin: 05/06/18 10:45 Dose: 20 mg Ibuprofen (Motrin Tab) 400 mg PO Q8 PRN PRN Reason: Pain, moderate (4-7) Last Admin: 05/05/18 18:02 Dose: 400 mg Lorazepam (Ativan) 1 mg IVP Q6H PRN PRN Reason: Seizure activity - Labs Labs: 05/06/18 07:34 05/06/18 07:34 - Constitutional Appears: Non-toxic, No Acute Distress - Head Exam Head Exam: NORMAL INSPECTION, NORMOCEPHALIC - Eye Exam Eye Exam: EOMI, Normal appearance. absent: Nystagmus, Scleral icterus - ENT Exam ENT Exam: Mucous Membranes Moist - Respiratory Exam Respiratory Exam: Clear to Ausculation Bilateral, NORMAL BREATHING PATTERN. absent: Rales, Rhonchi, Wheezes - Cardiovascular Exam Cardiovascular Exam: REGULAR RHYTHM, +S1, +S2 - GI/Abdominal Exam GI & Abdominal Exam: Soft, Normal Bowel Sounds. absent: Distended, Firm, Guarding, Rigid, Tenderness - Extremities Exam Extremities Exam: Normal Inspection. absent: Calf Tenderness, Pedal Edema - Back Exam Back Exam: NORMAL INSPECTION. absent: CVA tenderness (L), CVA tenderness (R) - Neurological Exam Neurological Exam: Alert, Awake, Oriented x3 Neuro motor strength exam: Left Upper Extremity: 5, Right Upper Extremity: 5, Left Lower Extremity: 4, Right Lower Extremity: 4 - Psychiatric Exam Psychiatric exam: Normal Affect, Normal Mood - Skin Skin Exam: Intact, Normal Color Assessment and Plan - Assessment and Plan (Free Text) Assessment: Patient is a 52 year old male with PMH of Etoh abuse, asthma, seizure (etoh induced), back problems, who was BIBA due to bilateral lower extremity weakness x [address] on admission reports no acute intracranial abnormality. Lumbar CT on admission reports L4-L5 moderate spinal stenosis with no acute fractures. Neurology was consulted for radiculopathy. RPR was ordered and was positive. ID was consulted for possible tertiary syphilis. Patient states of improved weakness and sensation b/l lower extremities. U/S of lower extremities was ordered and is pending. FTA-Abs is reactive. Pending possible LP with neuro or will have 10 days of IV pcn. Patient has been accepted to [facility]. Plan: Bilateral Leg weakness Neurology consulted: Dr. Espino - possible LP as per Dr. Roberts ID consulted: Dr. Perez - FTA-Abs positive; LP vs empiric IV PCN for 10 days MRI Lumbar spine (05/03): multilevel degenerative disc and facet on L4-L5 with b/l neural foraminal stenosis. Mostly at L5-S1 CT Lumbar Spine w/o contrast (04/30) shows no fracture or traumatic osseous injury. Mild disc osteophyte complexes and disc bulges at L4/L5 and L5/S1 causing mild central canal stenosis and bilateral neural foraminal narrowing. Overall, these findings are stable since the prior study. CT Head without contrast (04/30) shows No acute hemorrhage or infarct. Findings are consistent with age-related atrophy and chronic small vessel ischemic disease. Symmetric areas of encephalomalacia are seen in the frontal lobes bila terally compatible with old infarcts. Vitamin B12 deficiency: B12 100 mcg daily; Folate normal; Neurochecks RPR - weakly reactive FTA Abs reactive HIV AB - negative Ibuprofen 400 mg PO Q8H U/S lower extremity: no evidence of PAD EtOH use disorder EtOH is 168 on admission Ativan 1mg IVP Q6 PRN seizure activity Seizure precaution Elevated LFTs unknown etiology considering pepcid as agent causing elevated lfts; pepcid held Repeat CMP in AM Prophylaxis DVT: SCDs, Enoxaparin 40 mg SC GI: consider restarting tomorrow if LFTS trend down Diet: Heart healthy Continue PT Disposition: Pending [facility] placement Claritza Lopez PGY-1 Medical management discussed with Dr. Torres
--- NOTE | 2018-05-06 18:27 | CP.PCM.PN ---
Subjective - Date & Time of Evaluation Date of Evaluation: 05/06/18 Time of Evaluation: 09:00 - Subjective Subjective: events noted still weak but improved afeb for possible LP vs empiric rx Objective - Vital Signs/Intake and Output Vital Signs (last 24 hours): Temp Pulse Resp BP Pulse Ox 98 F 71 20 105/66 96 05/06/18 15:38 05/06/18 15:38 05/06/18 15:38 05/06/18 15:38 05/06/18 15:38 Intake and Output: 05/06/18 05/06/18 06:59 18:59 Intake Total 750 300 Output Total 1800 900 Balance -1050 -600 - Medications Medications: Current Medications Albuterol/Ipratropium (Duoneb 3 Mg/0.5 Mg (3 Ml) Ud) 3 ml INH RQ4 PRN PRN Reason: Shortness of Breath Cyanocobalamin (Vitamin B12 100 Mcg Tab) 100 mcg PO DAILY [facility] Last Admin: 05/06/18 10:45 Dose: 100 mcg Enoxaparin Sodium (Lovenox) 40 mg SC DAILY [facility] Last Admin: 05/04/18 10:08 Dose: 40 mg Ibuprofen (Motrin Tab) 400 mg PO Q8 PRN PRN Reason: Pain, moderate (4-7) Last Admin: 05/06/18 16:21 Dose: 400 mg Lorazepam (Ativan) 1 mg IVP Q6H PRN PRN Reason: Seizure activity - Labs Labs: 05/06/18 07:34 05/06/18 07:34 - Constitutional Appears: Non-toxic, Chronically Ill - Head Exam Head Exam: NORMOCEPHALIC - Eye Exam Eye Exam: absent: Scleral icterus - ENT Exam ENT Exam: Mucous Membranes Dry - Neck Exam Neck Exam: absent: Lymphadenopathy - Respiratory Exam Respiratory Exam: Decreased Breath Sounds - Cardiovascular Exam Cardiovascular Exam: REGULAR RHYTHM - GI/Abdominal Exam GI & Abdominal Exam: Distended - Rectal Exam Rectal Exam: Deferred Assessment and Plan (1) Bilateral leg weakness Status: Acute (2) Alcohol abuse Status: Acute (3) Anxiety Status: Acute (4) Asthma Status: Acute (5) Homelessness Status: Acute (6) Leg pain, bilateral Status: Acute (7) Spinal stenosis of lumbosacral region Status: Acute (8) Positive RPR test Status: Acute
[2018-05-06] MEDS: Penicillin G Potassium 2.5 MU in Dextrose 5% In Water 50 ML IV SCH ×2 (19:59→22:59)
[2018-05-07] MEDS: Penicillin G Potassium 2.5 MU in Dextrose 5% In Water 50 ML IV SCH ×6 (03:00→23:22)
[2018-05-07 07:30] LABS: BASO % 0.6 % (0.0-2.0); EOS # 0.1 K/uL (0.0-0.7); HEMOGLOBIN 14.6 g/dL (12.0-18.0); LYMPH # 1.6 K/uL (1.0-4.3); LYMPH % 43.6 % (20.0-40.0); MEAN CELL VOLUME 101.9 fL (80.0-94.0); MEAN CORPUSCULAR HEMOGLOBIN 35.2 pg (27.0-31.0); MEAN CORPUSCULAR HGB CONC 34.5 g/dL (33.0-37.0); MEAN PLATELET VOLUME 9.3 fL (7.2-11.7); MONO # 0.5 K/uL (0.0-0.8); MONO % 12.1 % (0.0-10.0); NEUT # 1.5 K/uL (1.8-7.0); NEUT % 40.7 % (50.0-75.0); NRBC % 0.1 % (0.0-2.0); RBC 4.14 Mil/uL (4.40-5.90); RED CELL DISTRIBUTION WIDTH 13.1 % (11.5-14.5); WHITE BLOOD COUNT 3.7 K/uL (4.8-10.8)
[2018-05-07 07:41] LABS: ALB/GLOB RATIO 1.1 (1.0-2.1); ALBUMIN 4.2 g/dL (3.5-5.0); ALT/SGPT 155 U/L (21-72); AST/SGOT 149 U/L (17-59); BLOOD UREA NITROGEN 10 mg/dL (9-20); GFR NON-AFRICAN AMERICAN > 60
[2018-05-07] MEDS: Enoxaparin 40 mg Syringe SC SCH (09:38)
--- NOTE | 2018-05-07 11:37 | CP.PCM.DIS ---
Provider - Provider Date of Admission: 04/30/18 23:12 Attending physician: Cm Torres Jr, MD Consults: 04/30/18 23:18 Neurology Consult Stat Comment: Consulting Provider: Kenneth Espino Consulting Physician: Kenneth Espino Reason for Consult: bilateral leg weakness 05/01/18 03:20 Case Management Referral Routine Comment: Physician Instructions: Reason For Exam: homeless patient' Reason for Referral: Discharge Planning Nursing Referral for Wound Care Routine Comment: Physician Instructions: Reason For Exam: BLE discolorations 05/02/18 21:49 Infectious Disease Consult Routine Comment: Consulting Provider: Ahmet Perez Consulting Physician: Ahmet Perez Reason for Consult: RPR reactive, 1:2, LE weakness, tab dorsalis Time Spent in preparation of Discharge (in minutes): 45 Hospital Course - Lab Results Lab Results: Most Recent Lab Values WBC 3.7 K/uL (4.8-10.8) L 05/07/18 07:11 RBC 4.14 Mil/uL (4.40-5.90) L 05/07/18 07:11 Hgb 14.6 g/dL (12.0-18.0) 05/07/18 07:11 Hct 42.2 % (35.0-51.0) 05/07/18 07:11 MCV 101.9 fL (80.0-94.0) H 05/07/18 07:11 MCH 35.2 pg (27.0-31.0) H 05/07/18 07:11 MCHC 34.5 g/dL (33.0-37.0) 05/07/18 07:11 RDW 13.1 % (11.5-14.5) 05/07/18 07:11 Plt Count 132 K/uL (130-400) 05/07/18 07:11 MPV 9.3 fL (7.2-11.7) 05/07/18 07:11 Neut % (Auto) 40.7 % (50.0-75.0) L 05/07/18 07:11 Lymph % (Auto) 43.6 % (20.0-40.0) H 05/07/18 07:11 [place] % (Auto) 12.1 % (0.0-10.0) H 05/07/18 07:11 Eos % (Auto) 3.0 % (0.0-4.0) 05/07/18 07:11 Baso % (Auto) 0.6 % (0.0-2.0) 05/07/18 07:11 Neut # (Auto) 1.5 K/uL (1.8-7.0) L 05/07/18 07:11 Lymph # (Auto) 1.6 K/uL (1.0-4.3) 05/07/18 07:11 [place] # (Auto) 0.5 K/uL (0.0-0.8) 05/07/18 07:11 Eos # (Auto) 0.1 K/uL (0.0-0.7) 05/07/18 07:11 Baso # (Auto) 0.0 K/uL (0.0-0.2) 05/07/18 07:11 Sodium 137 mmol/L (132-148) 05/07/18 07:11 Potassium 4.0 mmol/L (3.6-5.2) 05/07/18 07:11 Chloride 101 mmol/L (98-107) 05/07/18 07:11 Carbon Dioxide 26 mmol/L (22-30) 05/07/18 07:11 Anion Gap 14 (10-20) 05/07/18 07:11 BUN 10 mg/dL (9-20) 05/07/18 07:11 Creatinine 0.6 mg/dL (0.8-1.5) L 05/07/18 07:11 Est GFR ( Amer) > 60 05/07/18 07:11 Est GFR (Non-Af Amer) > 60 05/07/18 07:11 POC Glucose (mg/dL) 100 mg/dL (65-110) 04/30/18 18:32 Random Glucose 96 mg/dL (75-110) 05/07/18 07:11 Calcium 9.0 mg/dl (8.6-10.4) 05/07/18 07:11 Phosphorus 4.0 mg/dL (2.5-4.5) 05/07/18 07:11 Magnesium 2.0 mg/dL (1.6-2.3) 05/07/18 07:11 Total Bilirubin 0.6 mg/dL (0.2-1.3) 05/07/18 07:11 AST 149 U/L (17-59) H 05/07/18 07:11 ALT 155 U/L (21-72) H 05/07/18 07:11 Alkaline Phosphatase 51 U/L (38-126) 05/07/18 07:11 Total Creatine Kinase 260 U/L (55-170) H 05/01/18 07:52 Total Protein 7.9 g/dL (6.3-8.3) 05/07/18 07:11 Albumin 4.2 g/dL (3.5-5.0) 05/07/18 07:11 Globulin 3.7 gm/dL (2.2-3.9) 05/07/18 07:11 Albumin/Globulin Ratio 1.1 (1.0-2.1) 05/07/18 07:11 Vitamin B12 222 pg/mL (239-931) L 05/01/18 07:52 Folate 9.7 ng/mL 05/01/18 07:52 Urine Opiates Screen Negative (NEGATIVE) 05/01/18 07:08 Urine Methadone Screen Negative (NEGATIVE) 05/01/18 07:08 Ur Barbiturates Screen Negative (NEGATIVE) 05/01/18 07:08 Ur Phencyclidine Scrn Negative (NEGATIVE) 05/01/18 07:08 Ur Amphetamines Screen Negative (NEGATIVE) 05/01/18 07:08 U Benzodiazepines Scrn Negative (NEGATIVE) 05/01/18 07:08 U Oth Cocaine Metabols Negative (NEGATIVE) 05/01/18 07:08 U Cannabinoids Screen Negative (NEGATIVE) 05/01/18 07:08 Alcohol, Quantitative 168 mg/dl (0-10) H 04/30/18 19:20 RPR Titer 1:2 (NONREACTIVE) H 05/02/18 08:07 RPR Reactive (NONREACTIVE) H 05/02/18 08:07 T.pallidum Ab (FTA-ABS) Reactive (Nonreactive) H 05/02/18 08:07 HIV 1&2 Antibody Screen Negative (NEGATIVE) 05/01/18 07:52 - Hospital Course Hospital Course: Upon Admission This is a 52 year old male with PMH of etoh abuse, asthma, seizure (etoh induced), back problems, who was BIBA due to bilateral lower extremity weakness since earlier today. Pt reports he was feeling normal and drank beer as usual today, and sat on his walker seat in [facility]. But when he attempted to get up from the walker a few hours later, he was unable to due to inability to move both of his legs. He reports numbness of both legs as well. Pt denies bowel or bladder incontinence, dizziness, fever, chills, recent illness, cough, trauma, chest pain, sob, abdominal pain, n/v/d, hematochezia, melena. Last drink was this afternoon (04/30) Hospital Course Patient is a 52 year old male with PMH of Etoh abuse, asthma, seizure (etoh induced), back problems, who was BIBA due to bilateral lower extremity weakness x [address] on admission reports no acute intracranial abnormality. Lumbar CT on admission reports L4-L5 moderate spinal stenosis with no acute fractures. Neurology was consulted for radiculopathy. RPR was ordered and was positive. ID was consulted for possible tertiary syphilis. Patient states of improved weakness and sensation b/l lower extremities. U/S of lower extremities was ordered and is pending. FTA-Abs is reactive. PPatient has been accepted to [facility]. Picc line was placed. Patient to receive 10 days of IV abx in Penicillin. Discharge Plan 1. Patient is stable for discharge to [facility] as per Dr. Torres. 2. Patient will need to followup with primary medical doctor within 3-7 days of discharge from hospital. 3. Patient will need to take Penicillin G Potassium 2.5 mu in Dextrose starting from (15 til 05-15-18 to complete his course for treatment of syphilis) 4. Patient has PICC line inserted which will need to removed after course of Penicillin. 5. Patient understands the plan as above and agrees. 6. Patient should return to the hospital if symptoms worsen or recur. Disclaimer: Written above is a synopsis of patient's current hospital admission. For full report refer to EMR. Discharge Exam - Head Exam Head Exam: NORMAL INSPECTION, NORMOCEPHALIC - Eye Exam Eye Exam: EOMI, Normal appearance. absent: Nystagmus, Scleral icterus - ENT Exam ENT Exam: Mucous Membranes Moist - Respiratory Exam Respiratory Exam: NORMAL BREATHING PATTERN. absent: Rales, Rhonchi, Wheezes, Respiratory Distress - Cardiovascular Exam Cardiovascular Exam: REGULAR RHYTHM, +S1, +S2. absent: Tachycardia - GI/Abdominal Exam GI & Abdominal Exam: Normal Bowel Sounds, Soft. absent: Diminished Bowel Sounds, Distended, Firm, Guarding, Tenderness - Extremities Exam Extremities exam: normal inspection - Neurological Exam Neurological exam: Alert, Oriented x3 - Psychiatric Exam Psychiatric exam: Normal Affect, Normal Mood - Skin Skin Exam: Intact, Normal Color Discharge Plan - Follow Up Plan Condition: GUARDED Disposition: REHAB FACILITY/REHAB UNIT Patient education suggested?: Yes Instructions: Weakness (ED), Weakness (GEN) Additional Instructions: 1. Patient is stable for discharge to [facility] as per Dr. Torres. 2. Patient will need to followup with primary medical doctor within 3-7 days of discharge from hospital. 3. Patient will need to take Penicillin G Potassium 2.5 mu in Dextrose starting from (15 til 05-15-18 to complete his course for treatment of syphilis) 4. Patient has PICC line inserted which will need to removed after course of Penicillin. 5. Patient understands the plan as above and agrees. 6. Patient should return to the hospital if symptoms worsen or recur.
[2018-05-07 16:51] VITALS: BP 120/83; PULSE 78; TEMP 98; O2SAT 96
--- NOTE | 2018-05-07 17:37 | CP.PCM.PN ---
Subjective - Date & Time of Evaluation Date of Evaluation: 05/07/18 Time of Evaluation: 09:00 - Subjective Subjective: events noted awaiting LP possible d/c on IV PCN if LP cant be done Objective - Vital Signs/Intake and Output Vital Signs (last 24 hours): Temp Pulse Resp BP Pulse Ox 98 F 78 20 120/83 96 05/07/18 16:00 05/07/18 16:00 05/07/18 16:00 05/07/18 16:00 05/07/18 16:00 Intake and Output: 05/07/18 05/07/18 06:59 18:59 Intake Total 1200 580 Output Total 1800 Balance -600 580 - Medications Medications: Current Medications Albuterol/Ipratropium (Duoneb 3 Mg/0.5 Mg (3 Ml) Ud) 3 ml INH RQ4 PRN PRN Reason: Shortness of Breath Cyanocobalamin (Vitamin B12 100 Mcg Tab) 100 mcg PO DAILY [facility] Last Admin: 05/07/18 09:38 Dose: 100 mcg Enoxaparin Sodium (Lovenox) 40 mg SC DAILY [facility] Last Admin: 05/07/18 09:38 Dose: 40 mg Penicillin G Potassium 2.5 mu/ (Dextrose) 50 mls @ 100 mls/hr IV Q4H [facility]; Protocol Last Admin: 05/07/18 14:42 Dose: 100 mls/hr Ibuprofen (Motrin Tab) 400 mg PO Q8 PRN PRN Reason: Pain, moderate (4-7) Last Admin: 05/06/18 16:21 Dose: 400 mg Lorazepam (Ativan) 1 mg IVP Q6H PRN PRN Reason: Seizure activity - Labs Labs: 05/07/18 07:11 05/07/18 07:11 Assessment and Plan (1) Bilateral leg weakness Status: Acute (2) Alcohol abuse Status: Acute (3) Anxiety Status: Acute (4) Asthma Status: Acute (5) Homelessness Status: Acute (6) Leg pain, bilateral Status: Acute (7) Spinal stenosis of lumbosacral region Status: Acute (8) Positive RPR test Status: Acute
== END 2018-05-08 | DRG 948 ==
LOC: C.ER 18:07 → C.3T 23:12
PROVIDERS: ADMIT Internal Medicine; ATTEND Internal Medicine
PROC: 02HV33Z Insertion of Infusion Device into Superior Vena Cava, Percutaneous Approach (ICD-10-PCS; principal; 2018-05-06)
DX: R53.1 Weakness (principal); A53.0 Latent syphilis, unspecified as early or late; M54.16 Radiculopathy, lumbar region; G89.29 Other chronic pain; R26.2 Difficulty in walking, not elsewhere classified; J45.909 Unspecified asthma, uncomplicated; M25.78 Osteophyte, vertebrae; M48.07 Spinal stenosis, lumbosacral region; F10.120 Alcohol abuse with intoxication, uncomplicated; Y90.6 Blood alcohol level of 120-199 mg/100 ml; M47.9 Spondylosis, unspecified; F17.210 Nicotine dependence, cigarettes, uncomplicated; R56.9 Unspecified convulsions; F41.9 Anxiety disorder, unspecified; I87.8 Other specified disorders of veins; E53.8 Deficiency of other specified B group vitamins

== ENCOUNTER 2018-06-02 00:30 | Emergency (ER) | payer MEDICARE ==
[2018-06-02 00:52] VITALS: BMI 24.1
--- NOTE | 2018-06-02 01:01 | C.PDOC ---
History Of Present Illness 52 year old male is brought to the ED by EMS for alcohol intoxication. Patient was picked up from [facility] admits to drinking alcohol today. Patient reports he needs a place to sleep. Patient denies SI/HI, hallucinations, CP, SOB, injury, fall, trauma. Time Seen by Provider: 06/02/18 01:00 Chief Complaint (Nursing): Substance Abuse History Per: Patient, EMS History/Exam Limitations: intoxication Onset/Duration Of Symptoms: Hrs Current Symptoms Are (Timing): Still Present Suicide/Self Injury Attempted (Context): None Modifying Factor(s): Alcohol Associated Symptoms: denies: Depression, Suicidal Thoughts, Suicidal Plan Recent travel outside of the [place]: No Additional History Per: Patient, EMS Past Medical History Reviewed: Historical Data, Nursing Documentation, Vital Signs Vital Signs: Last Vital Signs Temp 97.5 F L 06/02/18 00:48 Pulse 88 06/02/18 00:48 Resp 16 06/02/18 00:48 BP 128/81 06/02/18 00:48 Pulse Ox 99 06/02/18 00:48 - Medical History PMH: Anxiety, Arthritis (BACK; R FX 3RD FINGER), Asthma, Back Problems, Fractures (right hand), Seizures (ETOH INDUCED) Surgical History: No Surg Hx - [facility] Procedures INSERTION OF INFUSION DEV INTO SUP VENA CAVA, PERC APPROACH (04/30/18) Family History: States: Unknown Family Hx - Social History Hx Tobacco Use: No Hx Alcohol Use: Yes Hx Substance Use: No - Immunization History Hx Tetanus Toxoid Vaccination: No Hx Influenza Vaccination: No Hx Pneumococcal Vaccination: No Review Of Systems Constitutional: Negative for: Fever, Chills Cardiovascular: Negative for: Chest Pain Respiratory: Negative for: Shortness of Breath Gastrointestinal: Negative for: Nausea, Vomiting, Abdominal Pain Skin: Negative for: Rash Psych: Negative for: Depression, Suicidal ideation Physical Exam - Physical Exam Appears: Non-toxic, No Acute Distress Skin: Warm, Dry Head: Normacephalic Eye(s): bilateral: Normal Inspection Neck: Supple Chest: Symmetrical Cardiovascular: Rhythm Regular Respiratory: No Rales, No Rhonchi, No Wheezing Gastrointestinal/Abdominal: Soft, No Tenderness, No Guarding, No Rebound Extremity: Bilateral: Atraumatic, Normal Color And Temperature, Normal ROM Neurological/Psych: Oriented x3, Normal Speech, Normal Cognition Gait: Steady ED Course And Treatment O2 Sat by Pulse Oximetry: 99 (ON RA) Pulse Ox Interpretation: Normal Reevaluation Time: 04:48 Reassessment Condition: Improved Disposition Counseled Patient/Family Regarding: Studies Performed, Diagnosis, Need For Followup - Disposition Referrals: [facility] [Outside] Disposition: HOME/ ROUTINE Disposition Time: 01:01 Condition: FAIR Instructions: Alcohol Abuse and Alcoholism (DC) Forms: [employer] (Hebrew) - Clinical Impression Clinical Impression: Alcohol abuse, Alcohol intoxication - Scribe Statement The provider has reviewed the documentation as recorded by the Scribe Titus Soler All medical record entries made by the Scribe were at my direction and personally dictated by me. I have reviewed the chart and agree that the record accurately reflects my personal performance of the history, physical exam, medical decision making, and the department course for this patient. I have also personally directed, reviewed, and agree with the discharge instructions and disposition.
[2018-06-02 04:44] VITALS: BP 112/72; PULSE 93; RESP 18; TEMP 98.1
[2018-06-02 04:49] VITALS: O2SAT 99
== END 2018-06-02 04:49 | disposition home or self-care (01) ==
LOC: C.ER 00:30
DX: F10.129 Alcohol abuse with intoxication, unspecified (principal)

== ENCOUNTER 2018-06-03 18:47 | Emergency (ER) | payer MEDICARE ==
[2018-06-03 18:48] VITALS: BMI 24.1
[2018-06-03 18:56] VITALS: BP 96/50; PULSE 78; TEMP 97.6; O2SAT 99
--- NOTE | 2018-06-03 19:08 | C.PDOC ---
History Of Present Illness 52 year old male brought in via EMS for public intoxication. Patient has had many prior visits for the same. Has no complaints at this time. Time Seen by Provider: 06/03/18 19:05 Chief Complaint (Nursing): Medical Clearance History Per: Patient, EMS History/Exam Limitations: no limitations Onset/Duration Of Symptoms: Hrs Current Symptoms Are (Timing): Still Present Recent travel outside of the [place]: No Past Medical History Reviewed: Historical Data, Nursing Documentation, Vital Signs Vital Signs: Last Vital Signs Temp 97.6 F 06/03/18 18:52 Pulse 78 06/03/18 18:52 Resp 20 06/03/18 18:52 BP 96/50 L 06/03/18 18:52 Pulse Ox 99 06/03/18 18:52 - Medical History PMH: Anxiety, Arthritis (BACK; R FX 3RD FINGER), Asthma, Back Problems, Fractures (right hand), Seizures (ETOH INDUCED) - [employer] Procedures INSERTION OF INFUSION DEV INTO SUP VENA CAVA, PERC APPROACH (04/30/18) Family History: States: Unknown Family Hx - Social History Hx Tobacco Use: No Hx Alcohol Use: Yes Hx Substance Use: No - Immunization History Hx Tetanus Toxoid Vaccination: No Hx Influenza Vaccination: No Hx Pneumococcal Vaccination: No Review Of Systems Constitutional: Positive for: Other (Intoxication). Negative for: Fever, Chills Cardiovascular: Negative for: Chest Pain, Palpitations Respiratory: Negative for: Cough, Shortness of Breath Gastrointestinal: Negative for: Nausea, Vomiting Neurological: Negative for: Weakness, Numbness Physical Exam - Physical Exam Appears: Non-toxic, Other (ETOH on breath, Easily arousable) Skin: Normal Color, Warm, Dry Head: Atraumatic, Normacephalic Eye(s): bilateral: Normal Inspection Oral Mucosa: Moist Neck: Normal, Supple Chest: Symmetrical, No Tenderness Cardiovascular: Rhythm Regular Respiratory: Normal Breath Sounds, No Rales, No Rhonchi, No Wheezing Gastrointestinal/Abdominal: Soft, No Tenderness Neurological/Psych: Oriented x3, Normal Speech Gait: Steady ED Course And Treatment O2 Sat by Pulse Oximetry: 99 (Room air) Pulse Ox Interpretation: Normal Medical Decision Making Medical Decision Making: typical public alcohol abuse no acute issues Disposition Doctor Will See Patient In The: Office Counseled Patient/Family Regarding: Studies Performed, Diagnosis - Disposition Referrals: Alcoholics Anonymous [Outside] [employer] [facility] [Outside] [facility] [Outside] [facility] [Outside] [facility] [Outside] Disposition: HOME/ ROUTINE Disposition Time: 19:08 Condition: GOOD Instructions: Alcohol Use - When Is Drinking a Problem?, Alcohol Abuse and Alcoholism (DC) Forms: [employer] (Fijian) - Clinical Impression Clinical Impression: Homelessness, Alcohol abuse - Scribe Statement The provider has reviewed the documentation as recorded by the Scribjf Hobson All medical record entries made by the Scribe were at my direction and personally dictated by me. I have reviewed the chart and agree that the record accurately reflects my personal performance of the history, physical exam, medical decision making, and the department course for this patient. I have also personally directed, reviewed, and agree with the discharge instructions and disposition.
[2018-06-03 21:19] VITALS: RESP 18
== END 2018-06-03 20:00 | disposition home or self-care (01) ==
LOC: C.ER 18:47
DX: F10.10 Alcohol abuse, uncomplicated (principal); Y90.9 Presence of alcohol in blood, level not specified; Z59.0 Homelessness

== ENCOUNTER 2018-06-04 00:21 | Emergency (ER) | payer MEDICARE ==
[2018-06-04 00:22] VITALS: BMI 24.1
--- NOTE | 2018-06-04 03:35 | C.PDOC ---
History Of Present Illness 52 year old male brought in to ER by EMS for public intoxication. Patient was seen earlier in the evening and discharged at 1900. As per police patient was walking around in the streets. He has had many prior visits for the same. Time Seen by Provider: 06/04/18 00:49 Chief Complaint (Nursing): Medical Clearance History Per: Patient History/Exam Limitations: no limitations Onset/Duration Of Symptoms: Hrs Current Symptoms Are (Timing): Still Present Recent travel outside of the [place]: No Past Medical History Reviewed: Historical Data, Nursing Documentation, Vital Signs Vital Signs: Last Vital Signs Temp 97.3 F L 06/04/18 00:35 Pulse 66 06/04/18 00:35 Resp 22 06/04/18 00:35 BP Pulse Ox 96 06/04/18 00:35 - Medical History PMH: Anxiety, Arthritis (BACK; R FX 3RD FINGER), Asthma, Back Problems, Fractures (right hand), Seizures (ETOH INDUCED) - [facility] Procedures INSERTION OF INFUSION DEV INTO SUP VENA CAVA, PERC APPROACH (04/30/18) Family History: States: Unknown Family Hx - Social History Hx Tobacco Use: No Hx Alcohol Use: Yes Hx Substance Use: No - Immunization History Hx Tetanus Toxoid Vaccination: No Hx Influenza Vaccination: No Hx Pneumococcal Vaccination: No Review Of Systems Constitutional: Negative for: Fever, Chills Cardiovascular: Negative for: Chest Pain, Palpitations Respiratory: Negative for: Cough, Shortness of Breath Gastrointestinal: Negative for: Nausea, Vomiting Neurological: Negative for: Weakness, Numbness Physical Exam - Physical Exam Appears: Non-toxic, Other (Well dressed, bundled, ETOH on breath, stuperous) Skin: Normal Color, Warm, Dry Head: Atraumatic, Normacephalic Eye(s): bilateral: Normal Inspection Oral Mucosa: Moist Neck: Normal, Supple Chest: Symmetrical, No Tenderness Cardiovascular: Rhythm Regular Respiratory: Normal Breath Sounds, No Rales, No Rhonchi, No Wheezing Gastrointestinal/Abdominal: Soft, No Tenderness Neurological/Psych: Oriented x3, Normal Speech ED Course And Treatment O2 Sat by Pulse Oximetry: 96 (Room air) Pulse Ox Interpretation: Normal Reevaluation Time: 06:40 Reassessment Condition: Improved Medical Decision Making Medical Decision Making: alcohol abuse homeless Disposition Doctor Will See Patient In The: Office Counseled Patient/Family Regarding: Studies Performed, Diagnosis - Disposition Disposition: HOME/ ROUTINE Disposition Time: 06:40 Condition: GOOD Forms: [facility] (Yoruba) - Clinical Impression Clinical Impression: Alcohol abuse - Scribe Statement The provider has reviewed the documentation as recorded by the Scribe Ahmet Hobson All medical record entries made by the Scribe were at my direction and personally dictated by me. I have reviewed the chart and agree that the record accurately reflects my personal performance of the history, physical exam, medical decision making, and the department course for this patient. I have also personally directed, reviewed, and agree with the discharge instructions and disposition.
[2018-06-04 06:49] VITALS: BP 100/60; PULSE 72; RESP 20; TEMP 97.9; O2SAT 97
== END 2018-06-04 06:49 | disposition home or self-care (01) ==
LOC: C.ER 00:21
DX: F10.10 Alcohol abuse, uncomplicated (principal)

== ENCOUNTER 2018-06-06 23:43 | Emergency (ER) | payer MEDICARE ==
[2018-06-06 23:43] VITALS: BMI 24.1
--- NOTE | 2018-06-07 00:36 | C.PDOC ---
History Of Present Illness 52 year old male is brought to the ED by EMS for alcohol intoxication. Patient c/o leg swelling which is a chronic problem for the past few years. Patient admits to drinking alcohol today. Patient denies SI/HI, hallucinations, injury, fall, trauma. Chief Complaint (Nursing): Substance Abuse History Per: Patient, EMS History/Exam Limitations: intoxication Onset/Duration Of Symptoms: Hrs Current Symptoms Are (Timing): Still Present Suicide/Self Injury Attempted (Context): None Modifying Factor(s): Alcohol Associated Symptoms: denies: Depression, Suicidal Thoughts, Suicidal Plan Recent travel outside of the [place]: No Additional History Per: Patient Past Medical History Reviewed: Historical Data, Nursing Documentation, Vital Signs Vital Signs: Last Vital Signs Temp 99 F 06/06/18 23:56 Pulse 108 H 06/06/18 23:56 Resp 18 06/06/18 23:56 BP 123/69 06/06/18 23:56 Pulse Ox 100 06/06/18 23:56 - Medical History PMH: Anxiety, Arthritis (BACK; R FX 3RD FINGER), Asthma, Back Problems, Fractures (right hand), Seizures (ETOH INDUCED) Surgical History: No Surg Hx - [facility] Procedures INSERTION OF INFUSION DEV INTO SUP VENA CAVA, PERC APPROACH (04/30/18) Family History: States: Unknown Family Hx - Social History Hx Tobacco Use: No Hx Alcohol Use: Yes Hx Substance Use: No - Immunization History Hx Tetanus Toxoid Vaccination: No Hx Influenza Vaccination: No Hx Pneumococcal Vaccination: No Review Of Systems Constitutional: Negative for: Fever, Chills Eyes: Negative for: Vision Change Cardiovascular: Negative for: Chest Pain Respiratory: Negative for: Shortness of Breath Gastrointestinal: Negative for: Nausea, Vomiting, Abdominal Pain Musculoskeletal: Positive for: Leg Pain Skin: Negative for: Rash Psych: Negative for: Depression, Suicidal ideation Physical Exam - Physical Exam Appears: Non-toxic, No Acute Distress Skin: Normal Color, Warm, Dry Head: Atraumatic, Normacephalic Eye(s): bilateral: Normal Inspection Oral Mucosa: Moist Neck: Normal ROM, Supple Chest: Symmetrical Cardiovascular: Rhythm Regular Respiratory: Normal Breath Sounds, No Rales, No Rhonchi, No Wheezing Gastrointestinal/Abdominal: Soft, No Tenderness, No Guarding, No Rebound Extremity: Normal ROM, No Tenderness, Swelling (chronic ) Neurological/Psych: Oriented x3, Normal Speech, Normal Cognition Gait: Steady ED Course And Treatment O2 Sat by Pulse Oximetry: 100 (ON RA) Pulse Ox Interpretation: Normal Disposition Counseled Patient/Family Regarding: Diagnosis - Disposition Referrals: [facility] at [facility] [Outside] Disposition Time: 05:42 Condition: STABLE Instructions: Alcohol Abuse and Alcoholism (DC) Forms: [employer] (Divehi) - POA Present On Arrival: None - Clinical Impression Clinical Impression: Alcohol abuse - Scribe Statement The provider has reviewed the documentation as recorded by the Scribe Titus Soler All medical record entries made by the Scribe were at my direction and personally dictated by me. I have reviewed the chart and agree that the record accurately reflects my personal performance of the history, physical exam, medical decision making, and the department course for this patient. I have also personally directed, reviewed, and agree with the discharge instructions and disposition.
[2018-06-07 05:55] VITALS: BP 115/67; PULSE 72; RESP 16; TEMP 97.9; O2SAT 97
== END 2018-06-07 05:55 | disposition home or self-care (01) ==
LOC: C.ER 23:43
DX: F10.10 Alcohol abuse, uncomplicated (principal)

== ENCOUNTER 2018-06-09 20:15 | Emergency (ER) | payer MEDICARE ==
[2018-06-09 20:16] VITALS: BMI 24.1
--- NOTE | 2018-06-09 20:34 | C.PDOC ---
History Of Present Illness 52 year old male brought in via EMS after being found intoxicated in public. Denies any complaints at this time. Chief Complaint (Nursing): Substance Abuse History Per: Patient History/Exam Limitations: no limitations Onset/Duration Of Symptoms: Days Current Symptoms Are (Timing): Still Present Suicide/Self Injury Attempted (Context): None Modifying Factor(s): Alcohol Involuntary Hold By: None Recent travel outside of the [place]: No Past Medical History Reviewed: Historical Data, Nursing Documentation, Vital Signs Vital Signs: Last Vital Signs Temp 98.0 F 06/09/18 20:23 Pulse 74 06/09/18 20:23 Resp 18 06/09/18 20:23 BP 114/62 06/09/18 20:23 Pulse Ox 96 06/09/18 20:23 - Medical History PMH: Anxiety, Arthritis (BACK; R FX 3RD FINGER), Asthma, Back Problems, Fractures (right hand), Seizures (ETOH INDUCED) - [facility] Procedures INSERTION OF INFUSION DEV INTO SUP VENA CAVA, PERC APPROACH (04/30/18) Family History: States: Unknown Family Hx - Social History Hx Tobacco Use: No Hx Alcohol Use: Yes Hx Substance Use: No - Immunization History Hx Tetanus Toxoid Vaccination: No Hx Influenza Vaccination: No Hx Pneumococcal Vaccination: No Review Of Systems Constitutional: Positive for: Other (ETOH intoxication). Negative for: Fever, Chills Cardiovascular: Negative for: Chest Pain, Palpitations Respiratory: Negative for: Cough, Shortness of Breath Gastrointestinal: Negative for: Nausea, Vomiting Neurological: Negative for: Weakness, Numbness Physical Exam - Physical Exam Appears: Non-toxic, Other (ETOH on breath, no sign of injury) Skin: Normal Color, Warm, Dry Head: Atraumatic, Normacephalic Eye(s): bilateral: Normal Inspection Oral Mucosa: Moist Neck: Normal, Supple Chest: Symmetrical, No Tenderness Cardiovascular: Rhythm Regular Respiratory: Normal Breath Sounds, No Rales, No Rhonchi, No Wheezing Gastrointestinal/Abdominal: Soft, No Tenderness Extremity: Normal ROM (x4) Neurological/Psych: Oriented x3, Normal Speech ED Course And Treatment O2 Sat by Pulse Oximetry: 96 Disposition Counseled Patient/Family Regarding: Diagnosis - Disposition Referrals: [facility] [Outside] Disposition: Trans to Other Acute Care Hosp Disposition Time: 05:20 Condition: STABLE Instructions: Alcohol Abuse and Alcoholism (DC) Forms: [facility] (Uzbek) - POA Present On Arrival: None - Clinical Impression Clinical Impression: Alcohol abuse - Scribe Statement The provider has reviewed the documentation as recorded by the Scribe Ahmet Hobson All medical record entries made by the Scribe were at my direction and personally dictated by me. I have reviewed the chart and agree that the record accurately reflects my personal performance of the history, physical exam, medical decision making, and the department course for this patient. I have also personally directed, reviewed, and agree with the discharge instructions and disposition.
[2018-06-10 05:03] VITALS: BP 122/64; PULSE 94; RESP 18; TEMP 98.2
[2018-06-10 06:03] VITALS: O2SAT 96
== END 2018-06-10 05:44 | disposition short-term general hospital (02) ==
LOC: C.ER 20:15
DX: F10.129 Alcohol abuse with intoxication, unspecified (principal); Y90.9 Presence of alcohol in blood, level not specified

== ENCOUNTER 2018-06-13 23:36 | Emergency (ER) | payer MEDICARE ==
[2018-06-13 23:36] VITALS: BMI 24.1
[2018-06-13 23:50] VITALS: TEMP 98.4
--- NOTE | 2018-06-13 23:53 | C.PDOC ---
History Of Present Illness 52 y/o male presents to the ED complaining that he is cold, requesting a place to stay the night. States the cold makes his legs hurt. Patient has hx of chronic leg pain, with many prior ED visits for same. He denies any new pain or injury. Admits to ETOH use today. No other complaints. Patient denies any SI or HI. Time Seen by Provider: 06/13/18 23:46 Chief Complaint (Nursing): Lower Extremity Problem/Injury History Per: Patient History/Exam Limitations: no limitations Onset/Duration Of Symptoms: Days Current Symptoms Are (Timing): Still Present Past Medical History Reviewed: Historical Data, Nursing Documentation, Vital Signs - Medical History PMH: Anxiety, Arthritis (BACK; R FX 3RD FINGER), Asthma, Back Problems, Fractures (right hand), Seizures (ETOH INDUCED), Chronic Pain (LEG) - [facility] Procedures INSERTION OF INFUSION DEV INTO SUP VENA CAVA, PERC APPROACH (04/30/18) Family History: States: Unknown Family Hx - Social History Hx Tobacco Use: No Hx Alcohol Use: Yes Hx Substance Use: No - Immunization History Hx Tetanus Toxoid Vaccination: No Hx Influenza Vaccination: No Hx Pneumococcal Vaccination: No Review Of Systems Except As Marked, All Systems Reviewed And Found Negative. Constitutional: Negative for: Fever Cardiovascular: Negative for: Chest Pain Respiratory: Negative for: Shortness of Breath Gastrointestinal: Negative for: Vomiting, Diarrhea Musculoskeletal: Positive for: Leg Pain Skin: Negative for: Rash, Lesions Neurological: Negative for: Weakness, Incoordination Psych: Positive for: Other (ETOH intoxication). Negative for: Suicidal ideation (or homicidal) Physical Exam - Physical Exam Appears: Non-toxic, No Acute Distress, Unkempt Skin: Warm, Dry Head: Atraumatic, Normacephalic Eye(s): bilateral: Normal Inspection (conjunctiva clear), PERRL, EOMI Oral Mucosa: Moist Chest: Symmetrical Cardiovascular: Rhythm Regular, No Murmur Respiratory: Normal Breath Sounds, No Accessory Muscle Use Gastrointestinal/Abdominal: Soft, No Tenderness, No Distention Extremity: Bilateral: Atraumatic, Normal Color And Temperature, Other (ambulatory with walker, at baseline) Neurological/Psych: Normal Speech, Other (+ Alcohol on breath) Medical Decision Making Medical Decision Making: Impression: ETOH intoxication, Homelessness Plan: Will monitor patient in the ED for sobriety and discharge when safe. Discussed with nursing staff, there is a local long-term that will accept homeless patients at 9:00am via [employer]. 5:50am Patient is requesting discharge. States he has plans to volunteer at [employer], where he will be fed and kept indoors. Patient is AAOx3 with clear speech and steady gait. Stable for d/c home. Disposition Counseled Patient/Family Regarding: Diagnosis, Need For Followup - Disposition Disposition: HOME/ ROUTINE Disposition Time: 05:49 Condition: STABLE Instructions: Chronic Pain (DC) Forms: [facility] (Venezuelan), General Discharge Instructions - Clinical Impression Clinical Impression: Homelessness, Chronic leg pain - Scribe Statement The provider has reviewed the documentation as recorded by the Gricelda Kearns Provider Attestation: All medical record entries made by the Gricelda were at my direction and personally dictated by me. I have reviewed the chart and agree that the record accurately reflects my personal performance of the history, physical exam, medical decision making, and the department course for this patient. I have also personally directed, reviewed, and agree with the discharge instructions and disposition.
[2018-06-14 05:24] VITALS: BP 142/88; PULSE 88; RESP 20; O2SAT 97
== END 2018-06-14 06:13 | disposition home or self-care (01) ==
LOC: C.ER 23:36
DX: G89.29 Other chronic pain (principal); M79.606 Pain in leg, unspecified; Z59.0 Homelessness

== ENCOUNTER 2018-06-15 18:52 | Emergency (ER) | payer MEDICARE ==
[2018-06-15 18:52] VITALS: BMI 24.1
[2018-06-15 19:12] VITALS: BP 117/80; TEMP 97.6
--- NOTE | 2018-06-15 19:22 | C.PDOC ---
History Of Present Illness Patient brought in via EMS for public intoxication. Denies any physical complaints at this time. Time Seen by Provider: 06/15/18 19:20 Chief Complaint (Nursing): Substance Abuse History Per: Patient, EMS History/Exam Limitations: no limitations Onset/Duration Of Symptoms: Hrs Current Symptoms Are (Timing): Still Present Suicide/Self Injury Attempted (Context): None Modifying Factor(s): Alcohol Associated Symptoms: denies: Depression, Suicidal Thoughts Involuntary Hold By: None Recent travel outside of the [place]: No Past Medical History Reviewed: Historical Data, Nursing Documentation, Vital Signs Vital Signs: Last Vital Signs Temp 97.6 F 06/15/18 19:00 Pulse 73 06/15/18 19:00 Resp 17 06/15/18 19:00 BP 117/80 06/15/18 19:00 Pulse Ox 95 06/15/18 19:00 - Medical History PMH: Anxiety, Arthritis (BACK; R FX 3RD FINGER), Asthma, Back Problems, Fractures (right hand), Seizures (ETOH INDUCED), Chronic Pain (LEG) - [facility] Procedures INSERTION OF INFUSION DEV INTO SUP VENA CAVA, PERC APPROACH (04/30/18) Family History: States: Unknown Family Hx - Social History Hx Tobacco Use: No Hx Alcohol Use: Yes Hx Substance Use: No - Immunization History Hx Tetanus Toxoid Vaccination: No Hx Influenza Vaccination: No Hx Pneumococcal Vaccination: No Review Of Systems Constitutional: Negative for: Fever, Chills Cardiovascular: Negative for: Chest Pain, Palpitations Respiratory: Negative for: Cough, Shortness of Breath Gastrointestinal: Negative for: Nausea, Vomiting Neurological: Negative for: Weakness, Numbness Physical Exam - Physical Exam Appears: Non-toxic, Other (ETOH on breath, No sign of injury) Skin: Warm, Dry Head: Normacephalic Eye(s): bilateral: Normal Inspection Oral Mucosa: Moist Chest: Symmetrical, No Tenderness Cardiovascular: Rhythm Regular Respiratory: No Rales, No Rhonchi, No Wheezing Gastrointestinal/Abdominal: Soft, No Tenderness Neurological/Psych: Oriented x3 ED Course And Treatment O2 Sat by Pulse Oximetry: 95 (Room air) Pulse Ox Interpretation: Normal Disposition Counseled Patient/Family Regarding: Studies Performed, Diagnosis, Need For Followup - Disposition Referrals: [facility] [Outside] Disposition: HOME/ ROUTINE Disposition Time: 19:20 Condition: FAIR Instructions: Alcohol Abuse and Alcoholism (DC) Forms: [facility] (Eritrean) - Clinical Impression Clinical Impression: Alcohol intoxication - Scribe Statement The provider has reviewed the documentation as recorded by the Scribe Ahmet Hobson All medical record entries made by the Scribe were at my direction and personally dictated by me. I have reviewed the chart and agree that the record accurately reflects my personal performance of the history, physical exam, medical decision making, and the department course for this patient. I have also personally directed, reviewed, and agree with the discharge instructions and disposition.
[2018-06-16 06:07] VITALS: PULSE 81; RESP 16; O2SAT 100
== END 2018-06-16 06:06 | disposition home or self-care (01) ==
LOC: C.ER 18:52
DX: F10.129 Alcohol abuse with intoxication, unspecified (principal); Y90.9 Presence of alcohol in blood, level not specified

== ENCOUNTER 2018-06-19 15:00 | Emergency (ER) | payer MEDICARE ==
[2018-06-19 15:00] VITALS: BMI 24.1
[2018-06-19 15:04] VITALS: RESP 18; TEMP 97.3; O2SAT 96
[2018-06-19 15:26] VITALS: BP 126/80; PULSE 78
--- NOTE | 2018-06-19 16:29 | C.PDOC ---
History Of Present Illness 52 y/o male with history of Substance Abuse and is homeless. He has had several ED visits in the past. He was found in [facility] by EMS who stated he smelled like pcp and was "acting bizarre." He is complaining of leg pain for the past 2 years that wax and wane with cold weather. He states that his legs swell up and is unable to walk. He currently ambulates with a walker. He denies any fever, chills, headaches, N/V/D, abdominal pain, paresthesia, and SOB. He denies any recent travel. He admits to only ETOH use today. He denies any other substance abuse. Time Seen by Provider: 06/19/18 15:37 Chief Complaint (Nursing): Substance Abuse History Per: Patient History/Exam Limitations: intoxication Current Symptoms Are (Timing): Still Present Suicide/Self Injury Attempted (Context): None Modifying Factor(s): Alcohol Associated Symptoms: Anger, Agitation Recent travel outside of the [place]: No Past Medical History Reviewed: Historical Data, Nursing Documentation, Vital Signs Vital Signs: Last Vital Signs Temp 97.3 F L 06/19/18 15:25 Pulse 78 06/19/18 15:25 Resp 18 06/19/18 15:25 BP 126/80 06/19/18 15:25 Pulse Ox 96 06/19/18 15:25 - Medical History PMH: Anxiety, Arthritis (BACK; R FX 3RD FINGER), Asthma, Back Problems, Fractures (right hand), Seizures (ETOH INDUCED), Chronic Pain (LEG) Other Surgeries: hand surgery - [facility] Procedures INSERTION OF INFUSION DEV INTO SUP VENA CAVA, PERC APPROACH (04/30/18) Family History: States: Unknown Family Hx - Social History Hx Tobacco Use: No Hx Alcohol Use: Yes Hx Substance Use: No - Immunization History Hx Tetanus Toxoid Vaccination: No Hx Influenza Vaccination: No Hx Pneumococcal Vaccination: No Review Of Systems Constitutional: Negative for: Fever, Chills, Sweats Eyes: Negative for: Pain ENT: Negative for: Ear Pain, Nose Discharge Cardiovascular: Negative for: Chest Pain Respiratory: Negative for: Cough, Shortness of Breath Gastrointestinal: Negative for: Nausea, Vomiting, Abdominal Pain Genitourinary: Negative for: Dysuria, Frequency Musculoskeletal: Positive for: Leg Pain (bilateral) Skin: Positive for: Other (cyanotic) Neurological: Negative for: Headache, Dizziness Psych: Negative for: Suicidal ideation Physical Exam - Physical Exam Appears: Non-toxic, No Acute Distress, Combative, Agitated Skin: Normal Color (with the exception of lower legs and feet-cold to the touch; hyperpigmentation with chronic changes), Dry Head: Atraumatic, Normacephalic, No Tenderness Lymphatic: No Adenopathy Chest: Symmetrical Cardiovascular: Rhythm Regular Respiratory: Normal Breath Sounds, No Accessory Muscle Use, No Wheezing Gastrointestinal/Abdominal: Bowel Sounds, Soft, No Tenderness Back: No CVA Tenderness Extremity: Tenderness, Pedal Edema, Capillary Refill (of toes < 3 seconds; all other extremities < 2 seconds) Extremity: Bilateral: Limited ROM To Joint (of feet), Normal ROM (with exception of foot) Pulses: Left Dorsalis Pedis: Normal, Right Dorsalis Pedis: Normal Neurological/Psych: Oriented x3, Normal Sensation Gait: With Assistance (walker) ED Course And Treatment O2 Sat by Pulse Oximetry: 96 Medical Decision Making Medical Decision Making: A/P: 1. Leg pain secondary to Chronic venous Insufficiency of Bilateral Legs and feet 2.Substance Abuse - pain improved after course of Tylenol 975mg and Motrin 600mg - recommend compression stockings, elevating legs, and moisturizing the skin to prevent cracks - Motrin 600mg TID prn pain - Follow up in clinic - patient verbalized understanding - patient was monitored in the ED and was discharged when safe (he states he has a residential he can attend) Disposition Counseled Patient/Family Regarding: Diagnosis, Need For Followup - Disposition Referrals: [facility] [Outside] Disposition: HOME/ ROUTINE Disposition Time: 18:49 Condition: IMPROVED Additional Instructions: JOSE ALBERTO ALBERTO, thank you for letting us take care of you today. Your provider was Suzi Ramirez MD/Jacky Freedman PA-C and you were treated for SUBSTANCE ABUSE/LEG PAIN. The emergency medical care you received today was directed at your acute symptoms. If you were prescribed any medication, please fill it and take as directed. It may take several days for your symptoms to resolve. Return to the Emergency Department if your symptoms worsen, do not improve, or if you have any other problems. Please contact your doctor or call one of the physicians/clinics you have been referred to that are listed on the Patient Visit Information form that is included in your discharge packet. Bring any paperwork you were given at discharge with you along with any medications you are taking to your follow up visit. Our treatment cannot replace ongoing medical care by a primary care provider outside of the emergency department. Thank you for allowing the [facility] team to be part of your care today. Instructions: Drug Abuse Treatment, Lower Extremity Exercises Seated Forms: [email or web address] (South African) - Clinical Impression Clinical Impression: Drug abuse, Venous insufficiency of both lower extremities, Leg pain, bilateral - PA / FONDANT MACHINE OPERATOR / Resident Statement MD/DO has reviewed & agrees with the documentation as recorded.
== END 2018-06-19 19:04 | disposition home or self-care (01) ==
LOC: C.ER 15:00
DX: I87.2 Venous insufficiency (chronic) (peripheral) (principal); M79.605 Pain in left leg; M79.604 Pain in right leg; F19.10 Other psychoactive substance abuse, uncomplicated

== ENCOUNTER 2018-06-20 01:30 | Emergency (ER) | payer MEDICARE ==
[2018-06-20 01:31] VITALS: BMI 24.1
[2018-06-20 02:23] VITALS: RESP 20
--- NOTE | 2018-06-20 03:23 | C.PDOC ---
History Of Present Illness Patient brought in via EMS after being found intoxicated in public. Denies any complaints at this time. Time Seen by Provider: 06/20/18 01:54 Chief Complaint (Nursing): Substance Abuse History Per: Patient, EMS History/Exam Limitations: no limitations Onset/Duration Of Symptoms: Hrs Current Symptoms Are (Timing): Still Present Suicide/Self Injury Attempted (Context): None Modifying Factor(s): Alcohol Involuntary Hold By: None Recent travel outside of the [place]: No Past Medical History Reviewed: Historical Data, Nursing Documentation, Vital Signs Vital Signs: Last Vital Signs Temp 98 F 06/20/18 02:18 Pulse 71 06/20/18 02:18 Resp 20 06/20/18 02:18 BP 127/79 06/20/18 02:18 Pulse Ox 99 06/20/18 02:18 - Medical History PMH: Anxiety, Arthritis (BACK; R FX 3RD FINGER), Asthma, Back Problems, Fractures (right hand), Seizures (ETOH INDUCED), Chronic Pain (LEG) - [facility] Procedures INSERTION OF INFUSION DEV INTO SUP VENA CAVA, PERC APPROACH (04/30/18) Family History: States: Unknown Family Hx - Social History Hx Tobacco Use: No Hx Alcohol Use: Yes Hx Substance Use: No - Immunization History Hx Tetanus Toxoid Vaccination: No Hx Influenza Vaccination: No Hx Pneumococcal Vaccination: No Review Of Systems Constitutional: Negative for: Fever, Chills Cardiovascular: Negative for: Chest Pain, Palpitations Respiratory: Negative for: Cough, Shortness of Breath Gastrointestinal: Negative for: Nausea, Vomiting Neurological: Negative for: Weakness, Numbness Physical Exam - Physical Exam Appears: Non-toxic, Other (ETOH on breath, no sign of injury) Skin: Normal Color, Warm, Dry Head: Atraumatic, Normacephalic Eye(s): bilateral: Normal Inspection Oral Mucosa: Moist Neck: Normal, Supple Chest: Symmetrical, No Tenderness Cardiovascular: Rhythm Regular Respiratory: Normal Breath Sounds, No Rales, No Rhonchi, No Wheezing Gastrointestinal/Abdominal: Soft, No Tenderness Extremity: Other (b/l chronic venous stasis changes ) Extremity: Bilateral: Atraumatic Pulses: Left Dorsalis Pedis: Normal, Right Dorsalis Pedis: Normal Neurological/Psych: Oriented x3, Normal Speech, Normal Cognition Extremity: Right: No Drift, Left: No Drift, Upper: No Drift, Lower: No Drift ED Course And Treatment O2 Sat by Pulse Oximetry: 99 Medical Decision Making Medical Decision Making: Impression: ETOH intoxication 0500 pt in NAD, walking well, clinically sober, denies any current leg pain. Remains n/v intact in both LE. no signs of withdrawal, clear for d/c home with return instructions and followup. Endorsed to pt to decrease EToh use. Disposition - Disposition Referrals: [facility] [Outside] [facility] [Outside] [facility] [Outside] [facility] [Outside] Disposition: HOME/ ROUTINE Disposition Time: 05:30 Condition: GOOD Additional Instructions: TRY TO DECREASE THE AMOUNT OF ALCOHOL YOU DRINK. IT CAN BE BAD FOR YOU. JOSE ALBERTO ALBERTO, thank you for letting us take care of you today. Your provider was Jose Manuel Monroy and you were treated for SUBSTANCE ABUSE. The emergency medical care you received today was directed at your acute symptoms. If you were prescribed any medication, please fill it and take as directed. It may take several days for your symptoms to resolve. Return to the Emergency Department if your symptoms worsen, do not improve, or if you have any other problems. Please contact your doctor or call one of the physicians/clinics you have been referred to that are listed on the Patient Visit Information form that is included in your discharge packet. Bring any paperwork you were given at discharge with you along with any medications you are taking to your follow up visit. Our treatment cannot replace ongoing medical care by a primary care provider outside of the emergency department. [facility] of your care today. If you had an X-Ray or CT scan: A Radiologist will review the ED reading if any change in treatment is needed we will contact you. If you had a blood, urine, or wound culture: It will take several days for the results, if any change in treatment is needed we will contact you. If you had an STI test: It will take 48 hours for the results. Please call after 1 week if you have not heard back. Instructions: Varicose Veins and Other Vein Disease in the Legs, Alcohol Use - When Is Drinking a Problem?, Effects of Alcohol on Your Health Forms: [employer] (Guyanese) - Clinical Impression Clinical Impression: Chronic venous stasis, Alcohol intoxication - Scribe Statement The provider has reviewed the documentation as recorded by the Scribe Ahmet Hobson All medical record entries made by the Gricelda were at my direction and personally dictated by me. I have reviewed the chart and agree that the record accurately reflects my personal performance of the history, physical exam, medical decision making, and the department course for this patient. I have also personally directed, reviewed, and agree with the discharge instructions and disposition.
[2018-06-20 05:54] VITALS: BP 129/71; PULSE 82; TEMP 98.2
[2018-06-20 07:16] VITALS: O2SAT 99
== END 2018-06-20 05:49 | disposition home or self-care (01) ==
LOC: C.ER 01:30
DX: I87.8 Other specified disorders of veins (principal); F10.129 Alcohol abuse with intoxication, unspecified

== ENCOUNTER 2018-06-20 19:10 | Emergency (ER) | payer MEDICARE ==
[2018-06-20 19:10] VITALS: BMI 24.1
--- NOTE | 2018-06-20 20:07 | C.PDOC ---
History Of Present Illness 52 y/o male brought to the ED by EMS with ETOH on breath. Patient is well known to this ED, with many prior evals for the same. There was a report of a seizure, however not witnessed. Otherwise patient has no complaints. When evaluating patient, he volunteers that he is having a seizure and began rapidly shaking his upper extremities while remaining alert and conscious. There are no obvious signs of trauma to patients head or extremities. Time Seen by Provider: 06/20/18 19:38 Chief Complaint (Nursing): Seizure History Per: Patient History/Exam Limitations: intoxication Precipitating Factor(s): Recent Alcohol Ingestion Post-ictal Period: No Severity: None Additional History Per: EMS Past Medical History Reviewed: Historical Data, Nursing Documentation, Vital Signs Vital Signs: Last Vital Signs Temp 98.3 F 06/20/18 19:31 Pulse 90 06/20/18 19:31 Resp 20 06/20/18 19:31 BP 150/97 H 06/20/18 19:31 Pulse Ox 97 06/20/18 19:31 - Medical History PMH: Anxiety, Arthritis (BACK; R FX 3RD FINGER), Asthma, Back Problems, Fractures (right hand), Seizures (ETOH INDUCED), Chronic Pain (LEG) - [facility] Procedures INSERTION OF INFUSION DEV INTO SUP VENA CAVA, PERC APPROACH (04/30/18) Family History: States: Unknown Family Hx - Social History Hx Tobacco Use: No Hx Alcohol Use: Yes Hx Substance Use: No - Immunization History Hx Tetanus Toxoid Vaccination: No Hx Influenza Vaccination: No Hx Pneumococcal Vaccination: No Review Of Systems Except As Marked, All Systems Reviewed And Found Negative. Constitutional: Negative for: Fever Eyes: Negative for: Vision Change Cardiovascular: Negative for: Chest Pain Respiratory: Negative for: Shortness of Breath Gastrointestinal: Negative for: Vomiting Musculoskeletal: Negative for: Neck Pain, Back Pain Skin: Negative for: Lesions, Bruising Neurological: Negative for: Weakness, Numbness, Confusion, Headache, Dizziness, Other (post-ictal period) Physical Exam - Physical Exam Appears: Non-toxic, No Acute Distress, Other (+Alcohol on breath) Skin: Normal Color, Warm, Dry Head: Atraumatic, Normacephalic, No Swelling, No Laceration Eye(s): bilateral: Normal Inspection, PERRL, EOMI Oral Mucosa: Moist Tongue: Normal Appearing, No Bite Neck: Normal ROM, Supple Chest: Symmetrical Cardiovascular: Rhythm Regular, No Murmur Respiratory: Normal Breath Sounds, No Accessory Muscle Use Gastrointestinal/Abdominal: Soft, No Tenderness, No Distention Extremity: Bilateral: Atraumatic (with no focal tenderness, gross swelling, or ecchymosis), Normal Color And Temperature, Normal ROM Pulses: Left Dorsalis Pedis: Normal, Right Dorsalis Pedis: Normal Neurological/Psych: Oriented x3, Normal Cranial Nerves, Normal Motor, Normal Sensation, Other (No focal deficits) ED Course And Treatment O2 Sat by Pulse Oximetry: 97 (RA) Pulse Ox Interpretation: Normal Medical Decision Making Medical Decision Making: Impression: ETOH intoxication There is low suspicion that patient had actual seizure activity, as it was unwitnessed, and pt demonstrated to me what his seizure looks like. Will monitor in the ED. Disposition - Disposition Disposition Time: 01:00 Condition: STABLE Forms: [facility] (Cook Islander) - Clinical Impression Clinical Impression: Alcohol intoxication - Scribe Statement The provider has reviewed the documentation as recorded by the Gricelda Kearns Provider Attestation: All medical record entries made by the Martinibjf were at my direction and personally dictated by me. I have reviewed the chart and agree that the record accurately reflects my personal performance of the history, physical exam, medical decision making, and the department course for this patient. I have also personally directed, reviewed, and agree with the discharge instructions and disposition. Physician Patient Turnover Patient Signed Over To: Jose Manuel Monroy Handoff Comments: pending sobriety, reevaluation and disposition
[2018-06-21] MEDS ORDERED: Morphine 4 MG/ML VIAL ONE (00:14)
[2018-06-21 05:06] VITALS: BP 120/67; PULSE 100; RESP 20; TEMP 99.2; O2SAT 100
== END 2018-06-21 05:25 | disposition short-term general hospital (02) ==
LOC: C.ER 19:10
DX: F10.129 Alcohol abuse with intoxication, unspecified (principal)

== ENCOUNTER 2018-06-25 19:12 | Emergency (ER) | payer MEDICARE ==
[2018-06-25 19:13] VITALS: BMI 24.1
[2018-06-25 19:21] VITALS: O2SAT 98
--- NOTE | 2018-06-25 20:49 | C.PDOC ---
History Of Present Illness Patient is a 52 year old male thuy who presents to the ED for public intoxication. Patient denies any SI/HI, hallucinations, CP, or SOB. Time Seen by Provider: 06/25/18 19:54 Chief Complaint (Nursing): Substance Abuse History Per: Patient, EMS History/Exam Limitations: intoxication Suicide/Self Injury Attempted (Context): None Modifying Factor(s): Alcohol Associated Symptoms: denies: Suicidal Thoughts, Suicidal Plan, Other (homicidal ideation or hallucinations ) Recent travel outside of the [place]: No Additional History Per: Patient, EMS Past Medical History Reviewed: Historical Data, Nursing Documentation, Vital Signs Vital Signs: Last Vital Signs Temp 97.8 F 06/25/18 19:19 Pulse 90 06/25/18 19:19 Resp 18 06/25/18 19:19 BP 116/74 06/25/18 19:19 Pulse Ox 98 06/25/18 19:19 - Medical History PMH: Anxiety, Arthritis (BACK; R FX 3RD FINGER), Asthma, Back Problems, Fractures (right hand), Seizures (ETOH INDUCED), Chronic Pain (LEG) Surgical History: No Surg Hx - [facility] Procedures INSERTION OF INFUSION DEV INTO SUP VENA CAVA, PERC APPROACH (04/30/18) Family History: States: Unknown Family Hx - Social History Hx Tobacco Use: No Hx Alcohol Use: Yes Hx Substance Use: No - Immunization History Hx Tetanus Toxoid Vaccination: No Hx Influenza Vaccination: No Hx Pneumococcal Vaccination: No Review Of Systems Cardiovascular: Negative for: Chest Pain Respiratory: Negative for: Shortness of Breath Psych: Negative for: Suicidal ideation, Other (homicidal ideation or hallucinations ) Physical Exam - Physical Exam Appears: Non-toxic, No Acute Distress, Unkempt, Other (alcohol on breath, foul smelling ) Skin: Normal Color, Warm, Dry Head: Atraumatic, Normacephalic Oral Mucosa: Moist Neck: Normal ROM, Supple Chest: Symmetrical, No Deformity Cardiovascular: Rhythm Regular, No Murmur Respiratory: Normal Breath Sounds, No Rales, No Rhonchi, No Wheezing Gastrointestinal/Abdominal: Soft, No Tenderness, No Guarding, No Rebound Neurological/Psych: Oriented x3 ED Course And Treatment O2 Sat by Pulse Oximetry: 98 (on RA) Reevaluation Time: 04:43 Reassessment Condition: Improved (clinically sober, wants to be d/c to street) Disposition Doctor Will See Patient In The: Office Counseled Patient/Family Regarding: Studies Performed, Diagnosis - Disposition Disposition: HOME/ ROUTINE Disposition Time: 04:43 Condition: GOOD Forms: [facility] (Trinidadian) - Clinical Impression Clinical Impression: Alcohol intoxication - Scribe Statement The provider has reviewed the documentation as recorded by the Martinibjf Isaac All medical record entries made by the Martinibjf were at my direction and personally dictated by me. I have reviewed the chart and agree that the record accurately reflects my personal performance of the history, physical exam, medical decision making, and the department course for this patient. I have also personally directed, reviewed, and agree with the discharge instructions and disposition.
[2018-06-26 03:00] VITALS: BP 118/67; PULSE 95; RESP 20; TEMP 99.3
== END 2018-06-26 04:49 | disposition home or self-care (01) ==
LOC: C.ER 19:12
DX: F10.129 Alcohol abuse with intoxication, unspecified (principal); Y90.9 Presence of alcohol in blood, level not specified

== ENCOUNTER 2018-06-26 17:19 | Emergency (ER) | payer MEDICARE ==
[2018-06-26 17:20] VITALS: BMI 24.1
[2018-06-26 17:29] VITALS: RESP 20
--- NOTE | 2018-06-26 18:57 | C.PDOC ---
History Of Present Illness 52 y/o male pt presents presents to the ER by ambulance s/p seizure (?). Pt was a drunk that was admitted last night and d/c this morning. Pt's arm is moving oddly. Pt denies chest pain, dizziness and light headedness. 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) Past Medical History Reviewed: Historical Data, Nursing Documentation, Vital Signs Vital Signs: Last Vital Signs Temp 98.4 F 06/26/18 17:26 Pulse 92 H 06/26/18 17:26 Resp 20 06/26/18 17:26 BP 138/92 H 06/26/18 17:26 Pulse Ox 96 06/26/18 17:26 - Medical History PMH: Anxiety, Arthritis (BACK; R FX 3RD FINGER), Asthma, Back Problems, Fractures (right hand), Seizures (ETOH INDUCED), Chronic Pain (LEG) - [facility] Procedures INSERTION OF INFUSION DEV INTO SUP VENA CAVA, PERC APPROACH (04/30/18) Family History: States: Unknown Family Hx - Social History Hx Tobacco Use: No Hx Alcohol Use: Yes Hx Substance Use: No - Immunization History Hx Tetanus Toxoid Vaccination: No Hx Influenza Vaccination: No Hx Pneumococcal Vaccination: No Review Of Systems Except As Marked, All Systems Reviewed And Found Negative. Constitutional: Positive for: Other (s/P) Cardiovascular: Negative for: Chest Pain, Light Headedness Musculoskeletal: Positive for: Other (arm moving oddly) Neurological: Negative for: Dizziness Physical Exam - Physical Exam Appears: Non-toxic, No Acute Distress Skin: Warm, Dry Head: Normacephalic Eye(s): bilateral: Normal Inspection Throat: Normal, No Erythema Neck: Normal ROM, Supple Chest: Symmetrical Cardiovascular: Rhythm Regular Respiratory: Normal Breath Sounds Gastrointestinal/Abdominal: Soft, No Tenderness Back: No CVA Tenderness Neurological/Psych: Oriented x3, Normal Speech, Normal Cognition, Normal Motor, Normal Sensation ED Course And Treatment O2 Sat by Pulse Oximetry: 96 (RA) Pulse Ox Interpretation: Normal Progress Note: Plans: -- chem labs. -- blood work. -- CT head. Pt will be observed and assigned to Dr. Gee. Disposition - Disposition Disposition Time: 19:07 Condition: FAIR Forms: [email or web address] (Danish) - Clinical Impression Clinical Impression: Seizure, Substance abuse - PA / DIRECTOR OF GIFT PLANNING / Resident Statement / has reviewed & agrees with the documentation as recorded. - Scribe Statement The provider has reviewed the documentation as recorded by the Scribe Lexie Desir All medical record entries made by the Scribe were at my direction and personally dictated by me. I have reviewed the chart and agree that the record accurately reflects my personal performance of the history, physical exam, medical decision making, and the department course for this patient. I have also personally directed, reviewed, and agree with the discharge instructions and disposition. Physician Patient Turnover Patient Signed Over To: Robinson Gee DO Handoff Comments: pending labs/re-eval
[2018-06-26 19:39] LABS: BASO % 0.4 % (0.0-2.0); EOS # 0.1 K/uL (0.0-0.7); EOS % 1.4 % (0.0-4.0); HEMOGLOBIN 14.4 g/dL (12.0-18.0); LYMPH # 2.4 K/uL (1.0-4.3); LYMPH % 44.2 % (20.0-40.0); MEAN CELL VOLUME 100.6 fL (80.0-94.0); MEAN CORPUSCULAR HEMOGLOBIN 34.2 pg (27.0-31.0); MEAN PLATELET VOLUME 7.7 fL (7.2-11.7); MONO # 0.5 K/uL (0.0-0.8); MONO % 8.2 % (0.0-10.0); NEUT # 2.5 K/uL (1.8-7.0); NEUT % 45.8 % (50.0-75.0); RBC 4.21 Mil/uL (4.40-5.90); RED CELL DISTRIBUTION WIDTH 14.3 % (11.5-14.5); WHITE BLOOD COUNT 5.5 K/uL (4.8-10.8)
[2018-06-26 19:53] LABS: ALB/GLOB RATIO 1.1 (1.0-2.1); ALBUMIN 4.5 g/dL (3.5-5.0); ALT/SGPT 118 U/L (21-72); AST/SGOT 144 U/L (17-59); BLOOD UREA NITROGEN 15 mg/dL (9-20); GFR NON-AFRICAN AMERICAN > 60
[2018-06-27 00:03] VITALS: PULSE 88; O2SAT 99
[2018-06-27 06:11] VITALS: BP 138/92; TEMP 98
--- NOTE | 2018-06-27 12:06 | CT ---
Date of service: 06/26/2018 PROCEDURE: CT HEAD WITHOUT CONTRAST. HISTORY: ? seizure COMPARISON: Unenhanced head CT 04/30/2018. TECHNIQUE: Axial computed tomography images were obtained through the head/brain without intravenous contrast. Radiation dose: Total exam DLP = 1052.3 mGy-cm. This CT exam was performed using one or more of the following dose reduction techniques: Automated exposure control, adjustment of the mA and/or kV according to patient size, and/or use of iterative reconstruction technique. FINDINGS: HEMORRHAGE: No intracranial hemorrhage. BRAIN: No definite acute intracranial findings. Bifrontal and left temporal lobe inferior cystic encephalomalacia is reiterated which may be posttraumatic or post ischemic. No interval changes appreciated in diffuse cerebral atrophy which is mild and age-appropriate. VENTRICLES: Unremarkable. No hydrocephalus. CALVARIUM: Unremarkable. PARANASAL SINUSES: Unremarkable as visualized. No significant inflammatory changes. MASTOID AIR CELLS: Unremarkable as visualized. No inflammatory changes. OTHER FINDINGS: None. IMPRESSION: Stable unenhanced head CT revealing bifrontal inferior cystic encephalomalacia as well as the left temporal lobe anterior pole once again. No acute intracranial findings by standard CT criteria. Follow-up CT or MRI are available as clinically warranted. Preliminary report provided by Ravi, 06/26/2018, 8:57 p.m..
== END 2018-06-27 06:10 | disposition home or self-care (01) ==
LOC: C.ER 17:19
DX: R56.9 Unspecified convulsions (principal); F19.10 Other psychoactive substance abuse, uncomplicated

== ENCOUNTER 2018-06-27 16:35 | Emergency (ER) | payer MEDICARE ==
[2018-06-27 16:35] VITALS: BMI 24.1
[2018-06-27 16:57] VITALS: RESP 20
[2018-06-27 19:37] VITALS: BP 107/67; PULSE 72; TEMP 97.8; O2SAT 99
--- NOTE | 2018-06-27 19:46 | C.PDOC ---
History Of Present Illness 52 year old male presents to the ED BIBA for public intoxication. Patient had daily ED visits for same presentation. Denies any SI/HI, or any other symptoms. Time Seen by Provider: 06/27/18 16:45 Chief Complaint (Nursing): Substance Abuse History Per: Patient, EMS History/Exam Limitations: no limitations Onset/Duration Of Symptoms: Hrs Current Symptoms Are (Timing): Still Present Suicide/Self Injury Attempted (Context): None Modifying Factor(s): Alcohol Associated Symptoms: denies: Suicidal Thoughts, Suicidal Plan Additional History Per: Prior Records Past Medical History Reviewed: Historical Data, Nursing Documentation, Vital Signs Vital Signs: Last Vital Signs Temp 97.8 F 06/27/18 19:35 Pulse 72 06/27/18 19:35 Resp 20 06/27/18 19:35 BP 107/67 06/27/18 19:35 Pulse Ox 99 06/27/18 19:35 - Medical History PMH: Anxiety, Arthritis (BACK; R FX 3RD FINGER), Asthma, Back Problems, Fractures (right hand), Seizures (ETOH INDUCED), Chronic Pain (LEG) Other Surgeries: Hx of surgeries - [facility] Procedures INSERTION OF INFUSION DEV INTO SUP VENA CAVA, PERC APPROACH (04/30/18) Family History: States: No Known Family Hx - Social History Hx Tobacco Use: No Hx Alcohol Use: Yes Hx Substance Use: No - Immunization History Hx Tetanus Toxoid Vaccination: No Hx Influenza Vaccination: No Hx Pneumococcal Vaccination: No Review Of Systems Except As Marked, All Systems Reviewed And Found Negative. Gastrointestinal: Negative for: Nausea, Vomiting, Abdominal Pain, Diarrhea Psych: Negative for: Suicidal ideation Physical Exam - Physical Exam Appears: Non-toxic, No Acute Distress, Other (Foul-smelling, disheveled, alcohol smell on breath) Skin: Warm, Dry Head: Normacephalic Eye(s): bilateral: Normal Inspection Nose: Normal Oral Mucosa: Moist Neck: Supple Chest: Symmetrical Cardiovascular: Rhythm Regular Respiratory: Normal Breath Sounds, No Rales, No Rhonchi, No Wheezing Neurological/Psych: Oriented x3 Gait: Steady ED Course And Treatment O2 Sat by Pulse Oximetry: 99 (RA) Pulse Ox Interpretation: Normal Reevaluation Time: 19:46 Reassessment Condition: Improved (clincally stable/sober) Disposition Doctor Will See Patient In The: Office Counseled Patient/Family Regarding: Studies Performed, Diagnosis - Disposition Referrals: [facility] [Outside] [facility] [Outside] [facility] [Outside] [place] [facility] [Outside] Disposition: HOME/ ROUTINE Disposition Time: 19:46 Condition: GOOD Additional Instructions: stop alcohol abuse Instructions: Alcohol Abuse and Alcoholism (DC) Forms: [facility] (Citizen Of [place]) - Clinical Impression Clinical Impression: Alcohol abuse - Scribe Statement The provider has reviewed the documentation as recorded by the Scribe Selene Henson All medical record entries made by the Scribe were at my direction and personally dictated by me. I have reviewed the chart and agree that the record accurately reflects my personal performance of the history, physical exam, medical decision making, and the department course for this patient. I have also personally directed, reviewed, and agree with the discharge instructions and disposition.
== END 2018-06-27 20:05 | disposition home or self-care (01) ==
LOC: C.ER 16:35
DX: F10.10 Alcohol abuse, uncomplicated (principal); Y90.9 Presence of alcohol in blood, level not specified

== ENCOUNTER 2018-06-28 20:35 | Emergency (ER) | payer MEDICARE ==
[2018-06-28 20:36] VITALS: BMI 24.1
[2018-06-28 21:05] VITALS: BP 144/85; PULSE 110; TEMP 97.7; O2SAT 98
--- NOTE | 2018-06-28 21:13 | C.PDOC ---
History Of Present Illness 52 year old male brought in by EMS from [facility] for malingering. Patient denies ETOH use today, states he has no money. Time Seen by Provider: 06/28/18 21:07 Chief Complaint (Nursing): Substance Abuse History Per: Patient, EMS History/Exam Limitations: no limitations Onset/Duration Of Symptoms: Hrs Current Symptoms Are (Timing): Still Present Suicide/Self Injury Attempted (Context): None Modifying Factor(s): None Associated Symptoms: denies: Depression, Suicidal Thoughts Involuntary Hold By: None Recent travel outside of the [place]: No Past Medical History Reviewed: Historical Data, Nursing Documentation, Vital Signs Vital Signs: Last Vital Signs Temp 97.7 F 06/28/18 21:04 Pulse 110 H 06/28/18 21:04 Resp BP 144/85 06/28/18 21:04 Pulse Ox 98 06/28/18 21:04 - Medical History PMH: Anxiety, Arthritis (BACK; R FX 3RD FINGER), Asthma, Back Problems, Fractures (right hand), Seizures (ETOH INDUCED), Chronic Pain (LEG) - [facility] Procedures INSERTION OF INFUSION DEV INTO SUP VENA CAVA, PERC APPROACH (04/30/18) Family History: States: Unknown Family Hx - Social History Hx Tobacco Use: No Hx Alcohol Use: Yes Hx Substance Use: No - Immunization History Hx Tetanus Toxoid Vaccination: No Hx Influenza Vaccination: No Hx Pneumococcal Vaccination: No Review Of Systems Constitutional: Negative for: Fever, Chills Cardiovascular: Negative for: Chest Pain, Palpitations Respiratory: Negative for: Cough, Shortness of Breath Gastrointestinal: Negative for: Nausea, Vomiting Neurological: Negative for: Weakness, Numbness Physical Exam - Physical Exam Appears: Non-toxic, Other (Awake, alert, foul smelling, disheveled) Skin: Normal Color, Warm, Dry Head: Atraumatic, Normacephalic Eye(s): bilateral: Normal Inspection Oral Mucosa: Moist Neck: Normal, Supple Chest: Symmetrical, No Tenderness Cardiovascular: Rhythm Regular Respiratory: Normal Breath Sounds, No Rales, No Rhonchi, No Wheezing Gastrointestinal/Abdominal: Soft, No Tenderness Neurological/Psych: Oriented x3, Normal Speech Gait: Steady (w/ walker) ED Course And Treatment O2 Sat by Pulse Oximetry: 98 Medical Decision Making Medical Decision Making: denies alcohol abuse today easily arousable and coherent no w/d s/s ok for d/c. Disposition Doctor Will See Patient In The: Office Counseled Patient/Family Regarding: Studies Performed, Diagnosis - Disposition Referrals: [facility] [Outside] [facility] [Outside] [facility] [Outside] [facility] [Outside] [place] [facility] [Outside] Disposition: HOME/ ROUTINE Disposition Time: 21:13 Condition: GOOD Additional Instructions: seek nightly intermediate placement avoid alcohol abuse Seek AA Forms: General Discharge Instructions, [facility] (Tamazight) - Clinical Impression Clinical Impression: Homelessness - Scribe Statement The provider has reviewed the documentation as recorded by the Scribe Ahmet Hobson All medical record entries made by the Scribe were at my direction and person ally dictated by me. I have reviewed the chart and agree that the record accurately reflects my personal performance of the history, physical exam, medical decision making, and the department course for this patient. I have also personally directed, reviewed, and agree with the discharge instructions and disposition.
== END 2018-06-28 21:36 | disposition home or self-care (01) ==
LOC: C.ER 20:35
DX: Z59.0 Homelessness (principal)

== ENCOUNTER 2018-07-01 03:57 | Emergency (ER) | payer MEDICARE ==
[2018-07-01 03:58] VITALS: BMI 24.1
[2018-07-01 04:07] VITALS: RESP 16; O2SAT 97
--- NOTE | 2018-07-01 04:08 | C.PDOC ---
History Of Present Illness Patient presents to the ER requesting a place to spend the night. Denies any complaints. Time Seen by Provider: 07/01/18 04:08 Chief Complaint (Nursing): Lower Extremity Problem/Injury History Per: Patient History/Exam Limitations: no limitations Onset/Duration Of Symptoms: Hrs Current Symptoms Are (Timing): Still Present Severity: None Pain Scale Rating Of: 0 Recent travel outside of the [place]: No Past Medical History Reviewed: Historical Data, Nursing Documentation, Vital Signs Vital Signs: Last Vital Signs Temp 98.7 F 07/01/18 04:05 Pulse 87 07/01/18 04:05 Resp 16 07/01/18 04:05 BP 143/80 07/01/18 04:05 Pulse Ox 97 07/01/18 04:05 - Medical History PMH: Anxiety, Arthritis (BACK; R FX 3RD FINGER), Asthma, Back Problems, Fractur es (right hand), Seizures (ETOH INDUCED), Chronic Pain (LEG) - [facility] Procedures INSERTION OF INFUSION DEV INTO SUP VENA CAVA, PERC APPROACH (04/30/18) Family History: States: No Known Family Hx - Social History Hx Tobacco Use: No Hx Alcohol Use: Yes Hx Substance Use: No - Immunization History Hx Tetanus Toxoid Vaccination: No Hx Influenza Vaccination: No Hx Pneumococcal Vaccination: No Review Of Systems Constitutional: Negative for: Fever, Chills Cardiovascular: Negative for: Chest Pain, Palpitations Respiratory: Negative for: Cough, Shortness of Breath Gastrointestinal: Negative for: Nausea, Vomiting Neurological: Negative for: Weakness, Numbness Physical Exam - Physical Exam Appears: Non-toxic, Other (no sign of injury) Skin: Warm, Dry Head: Normacephalic Oral Mucosa: Moist Chest: Symmetrical, No Tenderness Cardiovascular: Rhythm Regular Respiratory: No Rales, No Rhonchi, No Wheezing Gastrointestinal/Abdominal: Soft, No Tenderness Neurological/Psych: Oriented x3 ED Course And Treatment O2 Sat by Pulse Oximetry: 97 (Room air) Pulse Ox Interpretation: Normal Reevaluation Time: 05:31 Reassessment Condition: Improved Disposition Counseled Patient/Family Regarding: Studies Performed, Diagnosis, Need For Followup - Disposition Referrals: [facility] [Outside] Disposition: HOME/ ROUTINE Disposition Time: 04:08 Condition: FAIR Forms: [facility] (Welsh), General Discharge Instructions - Clinical Impression Clinical Impression: Encounter for medical assessment - Scribe Statement The provider has reviewed the documentation as recorded by the Scribe Ahmet Hobson All medical record entries made by the Scribe were at my direction and personally dictated by me. I have reviewed the chart and agree that the record accurately reflects my personal performance of the history, physical exam, medical decision making, and the department course for this patient. I have also personally directed, reviewed, and agree with the discharge instructions and disposition.
[2018-07-01 05:48] VITALS: BP 138/86; PULSE 82; TEMP 98.9
== END 2018-07-01 05:58 | disposition home or self-care (01) ==
LOC: C.ER 03:57
DX: Z00.00 Encounter for general adult medical examination without abnormal findings (principal)

== ENCOUNTER 2018-07-01 20:34 | Emergency (ER) | payer MEDICARE ==
[2018-07-01 20:34] VITALS: BMI 24.1
--- NOTE | 2018-07-01 21:38 | C.PDOC ---
History Of Present Illness 52 year old male brought in via EMS after being found intoxicated in public. Denies any complaints at this time. Chief Complaint (Nursing): Substance Abuse History Per: Patient, EMS History/Exam Limitations: no limitations Onset/Duration Of Symptoms: Hrs Current Symptoms Are (Timing): Still Present Suicide/Self Injury Attempted (Context): None Modifying Factor(s): Alcohol Associated Symptoms: denies: Depression, Suicidal Thoughts Involuntary Hold By: None Recent travel outside of the [place]: No Past Medical History Reviewed: Historical Data, Nursing Documentation, Vital Signs Vital Signs: Last Vital Signs Temp 97.5 F L 07/01/18 21:25 Pulse 97 H 07/01/18 21:25 Resp 20 07/01/18 21:25 BP 126/74 07/01/18 21:25 Pulse Ox 97 07/01/18 21:25 - Medical History PMH: Anxiety, Arthritis (BACK; R FX 3RD FINGER), Asthma, Back Problems, Fractures (right hand), Seizures (ETOH INDUCED), Chronic Pain (LEG) - [facility] Procedures INSERTION OF INFUSION DEV INTO SUP VENA CAVA, PERC APPROACH (04/30/18) Family History: States: Unknown Family Hx - Social History Hx Tobacco Use: No Hx Alcohol Use: Yes Hx Substance Use: No - Immunization History Hx Tetanus Toxoid Vaccination: No Hx Influenza Vaccination: No Hx Pneumococcal Vaccination: No Review Of Systems Constitutional: Negative for: Fever, Chills Cardiovascular: Negative for: Chest Pain, Palpitations Respiratory: Negative for: Cough, Shortness of Breath Gastrointestinal: Negative for: Nausea, Vomiting Neurological: Negative for: Weakness, Numbness Physical Exam - Physical Exam Appears: Non-toxic, Other (ETOH on breath, no sign of injury) Skin: Normal Color, Warm, Dry Head: Atraumatic, Normacephalic Eye(s): bilateral: Normal Inspection Oral Mucosa: Moist Chest: Symmetrical, No Tenderness Cardiovascular: Rhythm Regular Respiratory: Normal Breath Sounds, No Rales, No Rhonchi, No Wheezing Gastrointestinal/Abdominal: Soft, No Tenderness Neurological/Psych: Oriented x3, Normal Speech ED Course And Treatment O2 Sat by Pulse Oximetry: 97 (Room air) Pulse Ox Interpretation: Normal Disposition Counseled Patient/Family Regarding: Diagnosis - Disposition Referrals: [facility] [Outside] Disposition: HOME/ ROUTINE Disposition Time: 06:20 Condition: STABLE Instructions: Alcohol Abuse and Alcoholism (DC) Forms: [facility] (Serbian), Gen Discharge Inst Belarusian Print Language: GAMBIAN - POA Present On Arrival: None - Clinical Impression Clinical Impression: Alcohol abuse - Scribe Statement The provider has reviewed the documentation as recorded by the Scribjf Hobson All medical record entries made by the Scribe were at my direction and personally dictated by me. I have reviewed the chart and agree that the record accurately reflects my personal performance of the history, physical exam, medical decision making, and the department course for this patient. I have also personally directed, reviewed, and agree with the discharge instructions and disposition.
[2018-07-02 00:49] VITALS: TEMP 98.4
[2018-07-02 06:23] VITALS: BP 110/76; PULSE 82; RESP 14; O2SAT 95
== END 2018-07-02 06:35 | disposition home or self-care (01) ==
LOC: C.ER 20:34
DX: F10.10 Alcohol abuse, uncomplicated (principal); Y90.9 Presence of alcohol in blood, level not specified

== ENCOUNTER 2018-07-02 20:00 | Emergency (ER) | payer MEDICARE ==
[2018-07-02 20:00] VITALS: BMI 24.1
[2018-07-02 20:04] VITALS: RESP 16
--- NOTE | 2018-07-02 20:10 | C.PDOC ---
History Of Present Illness 52 year old male is brought to the ED by EMS for public intoxication. Patient admits to drinking alcohol today and is requesting for a place to stay the night. Patient denies SI/HI, hallucinations, injury, fall, trauma. Time Seen by Provider: 07/02/18 20:09 Chief Complaint (Nursing): Substance Abuse History Per: Patient, EMS History/Exam Limitations: intoxication Onset/Duration Of Symptoms: Hrs Current Symptoms Are (Timing): Still Present Suicide/Self Injury Attempted (Context): None Modifying Factor(s): Alcohol Associated Symptoms: denies: Depression, Suicidal Thoughts, Suicidal Plan Additional History Per: Patient, EMS Past Medical History Reviewed: Historical Data, Nursing Documentation, Vital Signs Vital Signs: Last Vital Signs Temp 97.5 F L 07/02/18 20:01 Pulse 77 07/02/18 20:01 Resp 16 07/02/18 20:01 BP 137/81 07/02/18 20:01 Pulse Ox 98 07/02/18 20:01 - Medical History PMH: Anxiety, Arthritis (BACK; R FX 3RD FINGER), Asthma, Back Problems, Fractures (right hand), Seizures (ETOH INDUCED), Chronic Pain (LEG) Surgical History: No Surg Hx - [facility] Procedures INSERTION OF INFUSION DEV INTO SUP VENA CAVA, PERC APPROACH (04/30/18) Family History: States: Unknown Family Hx - Social History Hx Tobacco Use: No Hx Alcohol Use: Yes Hx Substance Use: No - Immunization History Hx Tetanus Toxoid Vaccination: No Hx Influenza Vaccination: No Hx Pneumococcal Vaccination: No Review Of Systems Constitutional: Negative for: Fever, Chills Cardiovascular: Negative for: Chest Pain Respiratory: Negative for: Shortness of Breath Gastrointestinal: Negative for: Nausea, Vomiting, Abdominal Pain Skin: Negative for: Rash Neurological: Negative for: Weakness, Numbness Psych: Negative for: Depression, Suicidal ideation Physical Exam - Physical Exam Appears: Non-toxic, No Acute Distress Skin: Warm, Dry Head: Normacephalic Eye(s): bilateral: Normal Inspection Neck: Supple Chest: Symmetrical Cardiovascular: Rhythm Regular Respiratory: No Rales, No Rhonchi, No Wheezing Gastrointestinal/Abdominal: Soft, No Tenderness, No Guarding, No Rebound Extremity: Bilateral: Atraumatic, Normal Color And Temperature, Normal ROM Neurological/Psych: Oriented x3, Normal Speech, Normal Cognition Gait: Steady ED Course And Treatment O2 Sat by Pulse Oximetry: 98 (ON RA) Pulse Ox Interpretation: Normal Disposition Counseled Patient/Family Regarding: Studies Performed, Diagnosis, Need For Followup - Disposition Referrals: [facility] [Outside] Disposition: HOME/ ROUTINE Disposition Time: 20:09 Condition: FAIR Instructions: Alcohol Abuse and Alcoholism (DC) Forms: [employer] (Montenegrin) - Clinical Impression Clinical Impression: Alcohol intoxication, Alcohol abuse - Scribe Statement The provider has reviewed the documentation as recorded by the Scribe Titus Soler All medical record entries made by the Scribe were at my direction and personally dictated by me. I have reviewed the chart and agree that the record accurately reflects my personal performance of the history, physical exam, medical decision making, and the department course for this patient. I have also personally directed, reviewed, and agree with the discharge instructions and disposition.
[2018-07-03 06:52] VITALS: BP 126/72; PULSE 88; TEMP 97.3; O2SAT 95
== END 2018-07-03 06:00 | disposition home or self-care (01) ==
LOC: C.ER 20:00
DX: F10.129 Alcohol abuse with intoxication, unspecified (principal)

== ENCOUNTER 2018-07-05 17:05 | Emergency (ER) | payer MEDICARE ==
[2018-07-05 17:06] VITALS: BMI 24.1
--- NOTE | 2018-07-05 17:14 | C.PDOC ---
History Of Present Illness 53 y/o male was brought by EMS to the ED due to public intoxication. He states that he has been drinking alcohol today and is currently intoxicated. He denies any falls, trauma, chest pain, SOB, and suicidal ideation/hallucinations. Acucheck was 90 upon arrival. <Jacky Freedman - Last Filed: 07/05/18 19:18> History Per: Patient History/Exam Limitations: intoxication Current Symptoms Are (Timing): Still Present Suicide/Self Injury Attempted (Context): None Modifying Factor(s): Alcohol Severity: Moderate Associated Symptoms: Agitation. denies: Anger, Anxiety, Depression, Suicidal Thoughts, Suicidal Plan Involuntary Hold By: None Recent travel outside of the [place]: No <Jacky Freedman - Last Filed: 07/05/18 19:18> <Donny Maldonado - Last Filed: 07/06/18 05:44> Time Seen by Provider: 07/05/18 17:12 Chief Complaint (Nursing): Substance Abuse Past Medical History Reviewed: Historical Data, Nursing Documentation, Vital Signs - Medical History PMH: Anxiety, Arthritis (BACK; R FX 3RD FINGER), Asthma, Back Problems, Fractures (right hand), Seizures (ETOH INDUCED), Chronic Pain (LEG) Other PMH: chronic venous insufficiency - [facility] Procedures INSERTION OF INFUSION DEV INTO SUP VENA CAVA, PERC APPROACH (04/30/18) Family History: States: Unknown Family Hx - Social History Hx Tobacco Use: No Hx Alcohol Use: Yes Hx Substance Use: No - Immunization History Hx Tetanus Toxoid Vaccination: No Hx Influenza Vaccination: No Hx Pneumococcal Vaccination: No <Jacky Freedman - Last Filed: 07/05/18 19:18> Vital Signs: Last Vital Signs Temp 98.4 F 07/06/18 05:34 Pulse 86 07/06/18 05:34 Resp 16 07/06/18 05:34 BP 146/82 07/06/18 05:34 Pulse Ox 98 07/06/18 05:34 - [facility] Procedures INSERTION OF INFUSION DEV INTO SUP VENA CAVA, PERC APPROACH (04/30/18) <Donny Maldonado - Last Filed: 07/06/18 05:44> Review Of Systems Constitutional: Negative for: Fever, Chills Cardiovascular: Negative for: Chest Pain Respiratory: Negative for: Cough, Shortness of Breath Gastrointestinal: Negative for: Nausea, Vomiting, Abdominal Pain Musculoskeletal: Positive for: Leg Pain Neurological: Negative for: Headache, Dizziness <Jacky Freedman - Last Filed: 07/05/18 19:18> Physical Exam - Physical Exam Appears: No Acute Distress, Unkempt Skin: Warm, Dry Neck: Supple Chest: Symmetrical Cardiovascular: Rhythm Regular Respiratory: Normal Breath Sounds, No Wheezing Gastrointestinal/Abdominal: Soft, No Tenderness Extremity: Bilateral: Limited ROM To Joint (arms and legs) Pulses: Left Radial: Normal, Right Radial: Normal, Left Dorsalis Pedis: Normal, Right Dorsalis Pedis: Normal Neurological/Psych: Oriented x3, Normal Speech, Normal Cognition, Normal Sensation Gait: Other (ambulates with walker) <Jacky Freedman - Last Filed: 07/05/18 19:18> ED Course And Treatment O2 Sat by Pulse Oximetry: 98 Pulse Ox Interpretation: Normal Reevaluation Time: 05:44 Reassessment Condition: Improved <Donny Maldonado - Last Filed: 07/06/18 05:44> Disposition Counseled Patient/Family Regarding: Diagnosis, Need For Followup - Disposition Disposition Time: 19:10 <Jacky Freedman - Last Filed: 07/05/18 19:18> Counseled Patient/Family Regarding: Studies Performed, Diagnosis, Need For Followup <Donny Maldonado - Last Filed: 07/06/18 05:44> - Disposition Referrals: [facility] [Outside] Disposition: HOME/ ROUTINE Condition: FAIR Instructions: Alcohol Abuse and Alcoholism (DC) Forms: [employer] (Kenyan) - Clinical Impression Clinical Impression: Alcohol intoxication - 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 <Jacky Freedman - Last Filed: 07/05/18 19:18> Physician Patient Turnover Patient Signed Over To: Donny Maldonado Handoff Comments: pending sobriety for discharge <Jacky Freedman - Last Filed: 07/05/18 19:18>
[2018-07-06 05:34] VITALS: BP 146/82; PULSE 86; RESP 16; TEMP 98.4; O2SAT 98
== END 2018-07-06 05:50 | disposition home or self-care (01) ==
LOC: C.ER 17:05
DX: F10.129 Alcohol abuse with intoxication, unspecified (principal); Y90.9 Presence of alcohol in blood, level not specified

== ENCOUNTER 2018-07-11 21:10 | Emergency (ER) | payer MEDICARE ==
[2018-07-11 21:10] VITALS: BMI 24.1
[2018-07-11 21:26] VITALS: BP 131/84; O2SAT 95
--- NOTE | 2018-07-11 21:59 | C.PDOC ---
History Of Present Illness Patient brought in for intoxication, he is a chronic alcoholic well known to this ED. He has no complaints, admits to EtOH use tonight, states "I didn't drink that much" but reports drinking half a fifth of vodka. Time Seen by Provider: 07/11/18 21:21 Chief Complaint (Nursing): Substance Abuse History Per: Patient Past Medical History Reviewed: Historical Data, Nursing Documentation, Vital Signs Vital Signs: Last Vital Signs Temp 97.7 F 07/11/18 21:23 Pulse 88 07/11/18 21:23 Resp 18 07/11/18 21:23 BP 131/84 07/11/18 21:23 Pulse Ox 95 07/11/18 21:23 - Medical History PMH: Anxiety, Arthritis (BACK; R FX 3RD FINGER), Asthma, Back Problems, Fractures (right hand), Seizures (ETOH INDUCED), Chronic Pain (LEG) - [facility] Procedures INSERTION OF INFUSION DEV INTO SUP VENA CAVA, PERC APPROACH (04/30/18) Family History: States: Unknown Family Hx - Social History Hx Tobacco Use: No Hx Alcohol Use: Yes Hx Substance Use: No - Immunization History Hx Tetanus Toxoid Vaccination: No Hx Influenza Vaccination: No Hx Pneumococcal Vaccination: No Review Of Systems Except As Marked, All Systems Reviewed And Found Negative. Constitutional: Negative for: Fever Cardiovascular: Negative for: Chest Pain Respiratory: Negative for: Cough, Shortness of Breath Gastrointestinal: Negative for: Nausea, Vomiting, Abdominal Pain, Diarrhea Neurological: Positive for: Altered Mental Status (intoxication) Physical Exam - Physical Exam Appears: Other (Intoxicated) Skin: Normal Color, Warm, Dry Eye(s): bilateral: Normal Inspection Oral Mucosa: Moist Cardiovascular: Rhythm Regular Respiratory: Normal Breath Sounds Gastrointestinal/Abdominal: Normal Exam Extremity: No Deformity, No Swelling Neurological/Psych: Other (Intoxicated with slurred speech and unsteady gait) ED Course And Treatment O2 Sat by Pulse Oximetry: 95 Medical Decision Making Medical Decision Making: Patient became progressively more awake and alert. Able to ambulate upon discharge. Disposition - Disposition Disposition: HOME/ ROUTINE Disposition Time: 01:00 Condition: STABLE Additional Instructions: JOSE ALBERTO ALBERTO, thank you for letting us take care of you today. Your provider was Lesli Cutler MD and you were treated for SUBSTANCE ABUSE. The emergency medical care you received today was directed at your acute symptoms. If you were prescribed any medication, please fill it and take as directed. It may take several days for your symptoms to resolve. Return to the Emergency Department if your symptoms worsen, do not improve, or if you have any other problems. Please contact your doctor or call one of the physicians/clinics you have been referred to that are listed on the Patient Visit Information form that is included in your discharge packet. Bring any paperwork you were given at discharge with you along with any medications you are taking to your follow up visit. Our treatment cannot replace ongoing medical care by a primary care provider outside of the emergency department. Thank you for allowing the [facility] team to be part of your care today. If you had an X-Ray or CT scan: A Radiologist will review the ED reading if any change in treatment is needed we will contact you. If you had a blood, urine, or wound culture: It will take several days for the results, if any change in treatment is needed we will contact you. If you had an STI test: It will take 48 hours for the results. Please call after 1 week if you have not heard back. Instructions: Alcohol Abuse and Alcoholism (DC) Forms: [employer] (Tuvaluan) - Clinical Impression Clinical Impression: Alcohol abuse
[2018-07-12 01:54] VITALS: PULSE 82; RESP 16; TEMP 97.9
== END 2018-07-12 01:54 | disposition home or self-care (01) ==
LOC: C.ER 21:10
DX: F10.10 Alcohol abuse, uncomplicated (principal); Y90.9 Presence of alcohol in blood, level not specified

== ENCOUNTER 2018-07-15 22:05 | Emergency (ER) | payer MEDICARE ==
[2018-07-15 22:06] VITALS: BMI 24.1
--- NOTE | 2018-07-16 00:49 | C.PDOC ---
History Of Present Illness 53 y/o male brought in by ambulance for public intoxication. Patient was reportedly sitting on a bench and refused to get up. When EMS arrived patient was able to stand up and walk over to stretcher. On arrival to the ED, patient is refusing to answer questions. He is able to move in a coordinated manner but is refusing to speak to staff. <Landon Bethea - Last Filed: 07/16/18 01:04> History Per: Patient History/Exam Limitations: Intoxication Onset Of Symptoms: Cannot Confirm Onset Current Symptoms Are (Timing): Still Present <Landon Bethea - Last Filed: 07/16/18 01:04> <Donny Maldonado - Last Filed: 07/16/18 06:04> Time Seen by Provider: 07/15/18 22:28 Chief Complaint (Nursing): Altered Mental Status Past Medical History Reviewed: Historical Data, Nursing Documentation, Vital Signs Vital Signs: Last Vital Signs Temp 97.6 F 07/15/18 22:17 Pulse 85 07/15/18 22:17 Resp 16 07/15/18 22:17 BP 130/75 07/15/18 22:17 Pulse Ox 95 07/15/18 22:17 - Medical History PMH: Anxiety, Arthritis (BACK; R FX 3RD FINGER), Asthma, Back Problems, Fractures (right hand), Seizures (ETOH INDUCED), Chronic Pain (LEG) - [facility] Procedures INSERTION OF INFUSION DEV INTO SUP VENA CAVA, PERC APPROACH (04/30/18) Family History: States: Unknown Family Hx - Social History Hx Tobacco Use: No Hx Alcohol Use: Yes Hx Substance Use: No - Immunization History Hx Tetanus Toxoid Vaccination: No Hx Influenza Vaccination: No Hx Pneumococcal Vaccination: No <Landon Bethea - Last Filed: 07/16/18 01:04> Vital Signs: Last Vital Signs Temp 98 F 07/16/18 05:04 Pulse 91 H 07/16/18 05:04 Resp 20 07/16/18 05:04 BP 132/70 07/16/18 05:04 Pulse Ox 98 07/16/18 05:04 - [facility] Procedures INSERTION OF INFUSION DEV INTO SUP VENA CAVA, PERC APPROACH (04/30/18) <Donny Maldonado - Last Filed: 07/16/18 06:04> Review Of Systems Review Of Systems: ROS cannot be obtained secondary to pt's inabilty to answer questions. <Landon Bethea E - Last Filed: 07/16/18 01:04> Physical Exam - Physical Exam Appears: Non-toxic, No Acute Distress Skin: Warm, Dry, No Rash, No Ecchymosis Head: Atraumatic, Normacephalic, No Swelling, No Laceration Eye(s): bilateral: Other (patient actively closing his eyes when provider tries to examine) Oral Mucosa: Moist Neck: Normal ROM Chest: Symmetrical Cardiovascular: Rhythm Regular, No Murmur Respiratory: Normal Breath Sounds, No Accessory Muscle Use Extremity: Bilateral: Atraumatic, Normal ROM (moving extremities spontaneously) Neurological/Psych: Other (Patient is awake but non cooperative with exam, refusing to answer questions or follow commands) <Landon Bethea - Last Filed: 07/16/18 01:04> ED Course And Treatment O2 Sat by Pulse Oximetry: 95 (RA) Pulse Ox Interpretation: Normal - CT Scan/US Head CT Other Rad Studies (CT/US): Read By Radiologist, Radiology Report Reviewed CT/US Interpretation: IMPRESSION: 1. No acute intracranial abnormality. 2. Mild bifrontal temporal cortical atrophy again demonstrated. 3. Evidence of previous surgical repair of the lateral orbits and anterior maxillary sinus murguia bilaterally. 4. Bilateral maxillary sinusitis. 5. Age indeterminate fractures in the postero-lateral murguia of the maxillary sinuses bilaterally. Progress Note: Will obtain CT Head Reevaluation Time: 01:00 Reassessment Condition: Improved <Landon Bethea E - Last Filed: 07/16/18 01:04> - Laboratory Results Result Diagrams: 07/16/18 02:04 07/16/18 02:04 Lab Results: Total Bilirubin 0.6 mg/dL (0.2-1.3) 07/16/18 02:04 AST 95 U/L (17-59) H D 07/16/18 02:04 ALT 60 U/L (21-72) 07/16/18 02:04 Alkaline Phosphatase 50 U/L (38-126) 07/16/18 02:04 Total Protein 7.6 g/dL (6.3-8.3) 07/16/18 02:04 Albumin 4.0 g/dL (3.5-5.0) 07/16/18 02:04 Globulin 3.6 gm/dL (2.2-3.9) 07/16/18 02:04 Albumin/Globulin Ratio 1.1 (1.0-2.1) 07/16/18 02:04 Pulse Ox Interpretation: Normal <Donny Maldonado - Last Filed: 07/16/18 06:04> Medical Decision Making Medical Decision Making: alcohol abuse head CT neg pending dispo in AM when sober signed over to overnight MD <Landon Bethea - Last Filed: 07/16/18 01:04> Disposition - Disposition Disposition Time: 01:00 <Landon Bethea - Last Filed: 07/16/18 01:04> Counseled Patient/Family Regarding: Studies Performed, Diagnosis, Need For Followup <Donny Maldonado - Last Filed: 07/16/18 06:04> - Disposition Referrals: [facility] [Outside] Condition: FAIR Instructions: Alcohol Abuse and Alcoholism (DC) Forms: [facility] (Turkmen) - Clinical Impression Clinical Impression: Alcohol intoxication - Scribe Statement The provider has reviewed the documentation as recorded by the Gricelda Kearns Provider Attestation: All medical record entries made by the Martinibe were at my direction and personally dictated by me. I have reviewed the chart and agree that the record a ccurately reflects my personal performance of the history, physical exam, medical decision making, and the department course for this patient. I have also personally directed, reviewed, and agree with the discharge instructions and disposition. <Landon Bethea - Last Filed: 07/16/18 01:04> Physician Patient Turnover Patient Signed Over To: Donny Maldonado Handoff Comments: dispo in AM when sober <Landon Bethea Last Filed: 07/16/18 01:04>
[2018-07-16 01:06] VITALS: RESP 20
[2018-07-16 02:07] LABS: BASO % 0.9 % (0.0-2.0); EOS # 0.1 K/uL (0.0-0.7); EOS % 2.1 % (0.0-4.0); HEMOGLOBIN 12.5 g/dL (12.0-18.0); LYMPH % 47.5 % (20.0-40.0); MEAN CELL VOLUME 101.4 fL (80.0-94.0); MEAN CORPUSCULAR HEMOGLOBIN 34.5 pg (27.0-31.0); MEAN PLATELET VOLUME 8.2 fL (7.2-11.7); MONO # 0.4 K/uL (0.0-0.8); MONO % 8.8 % (0.0-10.0); NEUT # 1.7 K/uL (1.8-7.0); NEUT % 40.7 % (50.0-75.0); NRBC % 0.1 % (0.0-2.0); RBC 3.63 Mil/uL (4.40-5.90); RED CELL DISTRIBUTION WIDTH 15.1 % (11.5-14.5); WHITE BLOOD COUNT 4.1 K/uL (4.8-10.8)
[2018-07-16 02:30] LABS: ALB/GLOB RATIO 1.1 (1.0-2.1); ALT/SGPT 60 U/L (21-72); AST/SGOT 95 U/L (17-59); BLOOD UREA NITROGEN 13 mg/dL (9-20); CALCIUM 8.3 mg/dl (8.6-10.4); GFR NON-AFRICAN AMERICAN > 60
[2018-07-16 05:05] VITALS: BP 132/70; PULSE 91; TEMP 98; O2SAT 98
--- NOTE | 2018-07-16 07:14 | CT ---
Date of service: 07/15/2018 PROCEDURE: CT HEAD WITHOUT CONTRAST. HISTORY: Intoxication. Change in mental status. COMPARISON: 06/26/2018 TECHNIQUE: Axial computed tomography images were obtained through the head/brain without intravenous contrast. Radiation dose: Total exam DLP = 1217.28 mGy-cm. This CT exam was performed using one or more of the following dose reduction techniques: Automated exposure control, adjustment of the mA and/or kV according to patient size, and/or use of iterative reconstruction technique. FINDINGS: HEMORRHAGE: No intracranial hemorrhage. BRAIN: No mass effect or edema. Again identified is cystic encephalomalacia seen within the inferior bifrontal lobes as well as the anterior left temporal lobe. VENTRICLES: Unremarkable. No hydrocephalus. CALVARIUM: Postsurgical hardware seen at the level of the anterior murguia of the bilateral maxilla. Deformities of the bilateral zygomatic arches. Deformity of the right nasal bone. Postsurgical changes at the lateral and superior bilateral orbital wall. Age-indeterminate deformities of the posterolateral murguia of the maxillary sinuses bilaterally. PARANASAL SINUSES: Prominent mucosal opacification of the bilateral maxillary sinuses. MASTOID AIR CELLS: Unremarkable as visualized. No inflammatory changes. OTHER FINDINGS: None. IMPRESSION: 1. No acute intracranial abnormality. 2. Persistent cystic encephalomalacia seen within the inferior bilateral frontal lobes and anterior left temporal lobe. 3. Prominent sinus mucosal disease as above. 4. Right-sided age-indeterminate nasal bone deformity. Age-indeterminate deformities of the posterolateral murguia of the maxillary sinuses bilaterally. Deformities of the bilateral zygomatic arches. Clinical correlation. 5. Postsurgical changes in the bilateral orbit and anterior left maxilla bilaterally. If symptoms persists, consider correlation with MRI. A preliminary report was generated at 12:07 a.m. on 07/16/[address] Robinson Haro from [employer].
== END 2018-07-16 06:10 | disposition home or self-care (01) ==
LOC: C.ER 22:05
DX: F10.129 Alcohol abuse with intoxication, unspecified (principal); Y90.6 Blood alcohol level of 120-199 mg/100 ml

== ENCOUNTER 2018-07-18 01:05 | Emergency (ER) | payer MEDICARE ==
[2018-07-18 01:06] VITALS: BMI 24.1
[2018-07-18 03:08] VITALS: TEMP 99.1
[2018-07-18 05:22] VITALS: BP 125/75; PULSE 80; RESP 16; O2SAT 99
--- NOTE | 2018-07-18 06:06 | C.PDOC ---
History Of Present Illness 53 year old male is brought to the ED by ambulance for evaluation of acute public alcohol intoxication. Patient admits to drinking earlier today and offers no physical complaints at this time. Time Seen by Provider: 07/18/18 01:37 Chief Complaint (Nursing): Substance Abuse History Per: Patient, EMS History/Exam Limitations: intoxication Onset/Duration Of Symptoms: Hrs Current Symptoms Are (Timing): Still Present Modifying Factor(s): Alcohol Associated Symptoms: denies: Suicidal Thoughts, Suicidal Plan Involuntary Hold By: None Recent travel outside of the [place]: No Additional History Per: Patient Past Medical History Reviewed: Historical Data, Nursing Documentation, Vital Signs Vital Signs: Last Vital Signs Temp 99.1 F 07/18/18 02:30 Pulse 80 07/18/18 05:21 Resp 16 07/18/18 05:21 BP 125/75 07/18/18 05:21 Pulse Ox 99 07/18/18 05:21 - Medical History PMH: Anxiety, Arthritis (BACK; R FX 3RD FINGER), Asthma, Back Problems, Fractures (right hand), Seizures (ETOH INDUCED), Chronic Pain (LEG) Surgical History: No Surg Hx - [facility] Procedures INSERTION OF INFUSION DEV INTO SUP VENA CAVA, PERC APPROACH (04/30/18) Family History: States: Unknown Family Hx - Social History Hx Tobacco Use: No Hx Alcohol Use: Yes Hx Substance Use: No - Immunization History Hx Tetanus Toxoid Vaccination: No Hx Influenza Vaccination: No Hx Pneumococcal Vaccination: No Review Of Systems Psych: Positive for: Other (EtOH intoxication ) Physical Exam - Physical Exam Appears: Non-toxic, No Acute Distress, Other (visibly intoxicated ) Skin: Normal Color, Warm, Dry, Other (no obvious signs of trauma/injury ) Head: Atraumatic, Normacephalic Eye(s): bilateral: Normal Inspection Oral Mucosa: Moist, Other (alcohol on breath ) Neck: Supple Chest: Symmetrical, No Deformity Respiratory: No Accessory Muscle Use Extremity: Normal ROM Neurological/Psych: Other (arousable to touch and verbal stimuli ) ED Course And Treatment O2 Sat by Pulse Oximetry: 99 Pulse Ox Interpretation: Normal Progress Note: 5 AM-Pt remains stable in ED, in no acute distress, AAOx3 ambulatory with walker. 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 - Scribe Statement The provider has reviewed the documentation as recorded by the Scribe (Iris Kenney) All medical record entries made by the Scribe were at my direction and personally dictated by me. I have reviewed the chart and agree that the record accurately reflects my personal performance of the history, physical exam, medical decision making, and the department course for this patient. I have also personally directed, reviewed, and agree with the discharge instructions and disposition.
== END 2018-07-18 06:07 | disposition home or self-care (01) ==
LOC: C.ER 01:05
DX: F10.129 Alcohol abuse with intoxication, unspecified (principal); Y90.9 Presence of alcohol in blood, level not specified

== ENCOUNTER 2018-07-18 19:42 | Emergency (ER) | payer MEDICARE ==
[2018-07-18 19:43] VITALS: BMI 24.1
[2018-07-18 19:50] VITALS: TEMP 97.6; O2SAT 95
--- NOTE | 2018-07-18 20:28 | C.PDOC ---
History Of Present Illness 53 year old male is brought to the ED by EMS for public intoxication. Patient admits to drinking alcohol today. Patient has multiple prior evaluations for same presentation. Patient denies SI/HI, hallucinations, CP, SOB. Chief Complaint (Nursing): Substance Abuse History Per: Patient, EMS History/Exam Limitations: intoxication Onset/Duration Of Symptoms: Hrs Current Symptoms Are (Timing): Still Present Modifying Factor(s): Alcohol Associated Symptoms: denies: Depression, Suicidal Thoughts, Suicidal Plan Recent travel outside of the [place]: No Additional History Per: Patient, EMS Past Medical History Reviewed: Historical Data, Nursing Documentation, Vital Signs Vital Signs: Last Vital Signs Temp 97.6 F 07/18/18 19:48 Pulse 69 07/18/18 19:48 Resp 20 07/18/18 19:48 BP 149/101 H 07/18/18 19:48 Pulse Ox 95 07/18/18 19:48 - Medical History PMH: Anxiety, Arthritis (BACK; R FX 3RD FINGER), Asthma, Back Problems, Fractures (right hand), Seizures (ETOH INDUCED), Chronic Pain (LEG) Surgical History: No Surg Hx - [facility] Procedures INSERTION OF INFUSION DEV INTO SUP VENA CAVA, PERC APPROACH (04/30/18) Family History: States: Unknown Family Hx - Social History Hx Tobacco Use: No Hx Alcohol Use: Yes Hx Substance Use: No - Immunization History Hx Tetanus Toxoid Vaccination: No Hx Influenza Vaccination: No Hx Pneumococcal Vaccination: No Review Of Systems Constitutional: Negative for: Fever, Chills Cardiovascular: Negative for: Chest Pain, Palpitations Respiratory: Negative for: Shortness of Breath Gastrointestinal: Negative for: Nausea, Vomiting, Abdominal Pain Skin: Negative for: Rash Neurological: Negative for: Weakness, Numbness Psych: Negative for: Depression, Suicidal ideation Physical Exam - Physical Exam Appears: Non-toxic, No Acute Distress, Other (AOB) Skin: Normal Color, Warm, Dry Head: Normacephalic, Laceration (vertical laceration mid forehead, dry blood) Eye(s): bilateral: Normal Inspection, PERRL, EOMI Oral Mucosa: Moist Neck: Normal ROM, No Midline Cervical Tenderness, Supple Chest: Symmetrical Cardiovascular: Rhythm Regular Respiratory: Normal Breath Sounds, No Rales, No Rhonchi, No Wheezing Gastrointestinal/Abdominal: Soft, No Tenderness, No Guarding, No Rebound Extremity: Normal ROM, No Tenderness, No Swelling Neurological/Psych: Oriented x3, Other (lethargic, arousable) Gait: Steady ED Course And Treatment - Laboratory Results Result Diagrams: 07/18/18 21:05 07/18/18 21:05 O2 Sat by Pulse Oximetry: 95 (ON RA) Pulse Ox Interpretation: Normal - CT Scan/US CT head Other Rad Studies (CT/US): Read By Radiologist, Radiology Report Reviewed CT/US Interpretation: EXAM: CT Head without Intravenous Contrast. ADDENDUM REPORT. CLINICAL HISTORY: Head injury, substance abuse. TECHNIQUE: Axial computed tomography images of the head/brain without intravenous contrast. 0.00 mGy-cm. COMPARISON: None provided. FINDINGS: BRAIN. Mild bifrontal temporal cortical atrophy noted compatible with substance abuse. No acute intraparenchymal hemorrhage. No mass lesion. No CT evidence for acute territorial infarct. No midline shift or extra-axial collections. VENTRICLES: No hydrocephalus. ORBITS: The orbits are unremarkable. SINUSES AND MASTOIDS: The paranasal sinuses and mastoid air cells are clear. BONES: Fractures seen in the postero-lateral maxillary sinuses, left frontal process of the zygomatic bone, and comminuted fracture of the mid-posterior left zygomatic arch were identified on previous study dated 07/15/2018 and do not represent acute fractures. SOFT TISSUES: Unremarkable. IMPRESSION: 1. No acute intracranial abnormality. 2. Fractures seen in the postero-lateral maxillary sinuses, left frontal process of the zygomatic bone, and comminuted fracture of the mid- posterior left zygomatic arch were identified on previous study dated 07/15/2018 and do not represent acute fractures. 3. Chronic bilateral maxillary sinusitis. 4. Status post prior maxillofacial surgery. 5. Mild bifrontal temporal cortical atrophy compatible with substance abuse. Addendum electronically signed by Robinson Haro M.D., SIXTO Certified By ABR & CBCCT on July 19, 2018 12:23:09 AM EST Medical Decision Making Medical Decision Making: Plan: * CT head * labs * UA Disposition Counseled Patient/Family Regarding: Diagnosis - Disposition Referrals: [facility] at [facility] [Outside] Disposition: HOME/ ROUTINE Disposition Time: 05:26 Condition: STABLE Instructions: Alcohol Abuse and Alcoholism (DC) Forms: [facility] (Guatemalan), Gen Discharge Inst Colombian - POA Present On Arrival: None - Clinical Impression Clinical Impression: Alcohol abuse - Scribe Statement The provider has reviewed the documentation as recorded by the Scribe Titus Soler All medical record entries made by the Scribe were at my direction and personally dictated by me. I have reviewed the chart and agree that the record accurately reflects my personal performance of the history, physical exam, medical decision making, and the department course for this patient. I have also personally directed, reviewed, and agree with the discharge instructions and disposition.
[2018-07-18 21:09] LABS: BASO % 0.8 % (0.0-2.0); EOS # 0.1 K/uL (0.0-0.7); EOS % 1.6 % (0.0-4.0); LYMPH # 2.2 K/uL (1.0-4.3); LYMPH % 42.8 % (20.0-40.0); MEAN CORPUSCULAR HEMOGLOBIN 34.2 pg (27.0-31.0); MEAN CORPUSCULAR HGB CONC 33.5 g/dL (33.0-37.0); MEAN PLATELET VOLUME 7.9 fL (7.2-11.7); MONO # 0.5 K/uL (0.0-0.8); MONO % 9.2 % (0.0-10.0); NEUT # 2.3 K/uL (1.8-7.0); NEUT % 45.6 % (50.0-75.0); NRBC % 0.1 % (0.0-2.0); RBC 4.28 Mil/uL (4.40-5.90); RED CELL DISTRIBUTION WIDTH 15.2 % (11.5-14.5)
[2018-07-18 21:17] LABS: HEMOGLOBIN 14.6 g/dL (12.0-18.0)
[2018-07-18 21:29] LABS: ALBUMIN 4.6 g/dL (3.5-5.0); ALT/SGPT 61 U/L (21-72); AST/SGOT 113 U/L (17-59); BLOOD UREA NITROGEN 10 mg/dL (9-20); CALCIUM 9.3 mg/dl (8.6-10.4); GFR NON-AFRICAN AMERICAN > 60
[2018-07-19 01:47] VITALS: BP 118/78; PULSE 94; RESP 14
--- NOTE | 2018-07-19 07:48 | CT ---
Date of service: 07/18/2018 PROCEDURE: CT HEAD WITHOUT CONTRAST. HISTORY: head injury COMPARISON: None available. TECHNIQUE: Axial computed tomography images were obtained through the head/brain without intravenous contrast. Radiation dose: Total exam DLP = 986.93 mGy-cm. This CT exam was performed using one or more of the following dose reduction techniques: Automated exposure control, adjustment of the mA and/or kV according to patient size, and/or use of iterative reconstruction technique. FINDINGS: HEMORRHAGE: No intracranial hemorrhage. BRAIN: No mass effect or edema. Scattered focal lucencies in the subcortical and periventricular white matter suggestive for chronic microvascular ischemic change. Confluent low attenuation seen within the inferior bilateral frontal lobes and inferior left temporal lobe suggestive for encephalomalacia from prior trauma and/or infarct and or additional etiology. Correlation with MRI may be helpful if clinically indicated. VENTRICLES: Unremarkable. No hydrocephalus. CALVARIUM: Unremarkable. PARANASAL SINUSES: Dense mucosal opacification of the bilateral maxillary sinuses. Fracture deformity of the left zygomatic arch, age indeterminate, possibly acute on chronic. Chronic deformities of the posterior lateral maxillary sinuses. Postsurgical changes seen at the level of the anterior bilateral maxilla. Chronic deformities of the bilateral nasal bones. MASTOID AIR CELLS: Unremarkable as visualized. No inflammatory changes. OTHER FINDINGS: Soft tissue swelling overlying the right frontal cranium. IMPRESSION: No acute intracranial abnormality. Chronic microvascular ischemic change. Encephalomalacia from prior trauma or infarct seen within the anterior inferior bilateral frontal lobes as well as the inferior left temporal lobe. Dense mucosal opacification of the bilateral maxillary sinuses. Fracture deformity of the left zygomatic arch, with possible acute on chronic changes. Comminution. Clinical correlation. Chronic deformity in the posterolateral murguia of the maxillary sinuses. Postsurgical changes seen at the level of the anterior bilateral maxilla. Chronic deformities of the bilateral nasal bones. Soft tissue swelling overlying the right frontal cranium. A preliminary report was generated at 11:43 p.m. on 07/18/[address] Robinson Haro from [facility]
== END 2018-07-19 06:15 | disposition home or self-care (01) ==
LOC: C.ER 19:42
DX: F10.129 Alcohol abuse with intoxication, unspecified (principal); Y90.8 Blood alcohol level of 240 mg/100 ml or more
CPT/HCPCS: 70450; 80053; 80320; 83735; 84100; 85025; 96374; 99284; J2060

== ENCOUNTER 2018-07-19 20:04 | Emergency (ER) | payer MEDICARE ==
[2018-07-19 20:04] VITALS: BMI 24.1
--- NOTE | 2018-07-19 20:25 | C.PDOC ---
History Of Present Illness Patient is a 53 year old homeless male who presents to the ED looking for a place stay. Patient is well known to the ED for alcohol abuse and was seen twice 1 day ago in the ED. When asked why he was not drinking today, patient could not come up with a response. Patient denies any SI/HI, hallucinations, SOB, CP, or other medical complaints at the present moment. Time Seen by Provider: 07/19/18 20:16 Chief Complaint (Nursing): Substance Abuse History Per: Patient History/Exam Limitations: no limitations Suicide/Self Injury Attempted (Context): None Associated Symptoms: denies: Suicidal Thoughts, Suicidal Plan Involuntary Hold By: None Recent travel outside of the [place]: No Additional History Per: Patient Past Medical History Reviewed: Historical Data, Nursing Documentation, Vital Signs Vital Signs: Last Vital Signs Temp 97.4 F L 07/19/18 20:09 Pulse 76 07/19/18 20:09 Resp 14 07/19/18 20:09 BP 137/94 H 07/19/18 20:09 Pulse Ox 94 L 07/19/18 20:09 - Medical History PMH: Anxiety, Arthritis (BACK; R FX 3RD FINGER), Asthma, Back Problems, Fractures (right hand), Seizures (ETOH INDUCED), Chronic Pain (LEG) Surgical History: No Surg Hx - [facility] Procedures INSERTION OF INFUSION DEV INTO SUP VENA CAVA, PERC APPROACH (04/30/18) Family History: States: Unknown Family Hx - Social History Hx Tobacco Use: No Hx Alcohol Use: Yes Hx Substance Use: No - Immunization History Hx Tetanus Toxoid Vaccination: No Hx Influenza Vaccination: No Hx Pneumococcal Vaccination: No Review Of Systems Cardiovascular: Negative for: Chest Pain Respiratory: Negative for: Shortness of Breath Psych: Negative for: Suicidal ideation, Other (homicidal ideation or hallucinations ) Physical Exam - Physical Exam Appears: Non-toxic, No Acute Distress, Other (dishelveled ) Skin: Normal Color, Warm, Dry Head: Normacephalic, Other (small old contusion to forehead ) Neurological/Psych: Oriented x3 ED Course And Treatment O2 Sat by Pulse Oximetry: 94 (on RA) Medical Decision Making Medical Decision Making: awake, alert, oriented no alcohol abuse today ok for d/c to long-term Disposition Doctor Will See Patient In The: Office Counseled Patient/Family Regarding: Studies Performed, Diagnosis - Disposition Referrals: [facility] [Outside] [facility] [Outside] [facility] [Outside] [facility] [Outside] [facility] [Outside] Disposition: HOME/ ROUTINE Disposition Time: 20:25 Condition: GOOD Additional Instructions: seek nightly long-term placement go directly to a warm long-term tonight seek AA Forms: General Discharge Instructions, [facility] (Nepalese) - Clinical Impression Clinical Impression: Homelessness, Malingering - Scribe Statement The provider has reviewed the documentation as recorded by the Gricelda Isaac All medical record entries made by the Martinibjf were at my direction and personally dictated by me. I have reviewed the chart and agree that the record accurately reflects my personal performance of the history, physical exam, medical decision making, and the department course for this patient. I have also personally directed, reviewed, and agree with the discharge instructions and disposition.
[2018-07-19 20:54] VITALS: BP 134/91; PULSE 81; RESP 16; TEMP 97.6
[2018-07-19 21:17] VITALS: O2SAT 94
== END 2018-07-19 21:29 | disposition home or self-care (01) ==
LOC: C.ER 20:04
DX: Z76.5 Malingerer [conscious simulation] (principal); Z59.0 Homelessness

== ENCOUNTER 2018-07-23 16:26 | Emergency (ER) | payer MEDICARE ==
[2018-07-23 16:27] VITALS: BMI 24.1
--- NOTE | 2018-07-23 17:16 | C.PDOC ---
History Of Present Illness 53 y/o male pt presents to the ER by ambulance for public intoxication. Pt was seen prior for same on July 19. Pt has no other associated sx of complaints. Time Seen by Provider: 07/23/18 16:44 Chief Complaint (Nursing): Substance Abuse History Per: Patient, EMS History/Exam Limitations: no limitations Onset/Duration Of Symptoms: Hrs Current Symptoms Are (Timing): Still Present Modifying Factor(s): Alcohol Past Medical History Reviewed: Historical Data, Nursing Documentation, Vital Signs Vital Signs: Last Vital Signs Temp 97.6 F 07/23/18 16:40 Pulse 52 L 07/23/18 16:40 Resp 12 07/23/18 16:40 BP 101/58 L 07/23/18 16:40 Pulse Ox 97 07/23/18 16:40 - Medical History PMH: Anxiety, Arthritis (BACK; R FX 3RD FINGER), Asthma, Back Problems, Fractures (right hand), Seizures (ETOH INDUCED), Chronic Pain (LEG) - [facility] Procedures INSERTION OF INFUSION DEV INTO SUP VENA CAVA, PERC APPROACH (04/30/18) Family History: States: Unknown Family Hx - Social History Hx Tobacco Use: No Hx Alcohol Use: Yes Hx Substance Use: No - Immunization History Hx Tetanus Toxoid Vaccination: No Hx Influenza Vaccination: No Hx Pneumococcal Vaccination: No Review Of Systems Except As Marked, All Systems Reviewed And Found Negative. Constitutional: Positive for: Other (public intoxication ) Gastrointestinal: Negative for: Nausea, Vomiting Physical Exam - Physical Exam Appears: Non-toxic, No Acute Distress, Other (pt pretends not to answer but responds to pain stimuli ) Skin: Warm, Dry Head: Normacephalic Eye(s): bilateral: Normal Inspection Oral Mucosa: Moist, Other (alcohol on breath ) Throat: Normal Chest: Symmetrical Cardiovascular: Rhythm Regular Respiratory: Normal Breath Sounds Gastrointestinal/Abdominal: Soft, No Tenderness Neurological/Psych: Oriented x3, Normal Speech ED Course And Treatment O2 Sat by Pulse Oximetry: 97 (RA) Pulse Ox Interpretation: Normal Reevaluation Time: 19:46 Reassessment Condition: Improved (clinically sober, easily arousable) Medical Decision Making Medical Decision Making: Plans: -- glucose, POC -- pending sobriety alcohol abuse Disposition Doctor Will See Patient In The: Office Counseled Patient/Family Regarding: Studies Performed, Diagnosis - Disposition Disposition: HOME/ ROUTINE Disposition Time: 19:46 Condition: GOOD Forms: [facility] (French) - Clinical Impression Clinical Impression: Alcohol intoxication - Scribe Statement The provider has reviewed the documentation as recorded by the Scribe Lexie Desir Provider Attestation: All medical record entries made by the Scribe were at my direction and personally dictated by me. I have reviewed the chart and agree that the record accurately reflects my personal performance of the history, physical exam, medical decision making, and the department course for this patient. I have also personally directed, reviewed, and agree with the discharge instructions and disposition.
[2018-07-23 20:08] VITALS: BP 97/59; PULSE 98; RESP 20; TEMP 98; O2SAT 98
== END 2018-07-23 21:00 | disposition home or self-care (01) ==
LOC: C.ER 16:26
DX: F10.129 Alcohol abuse with intoxication, unspecified (principal)

== ENCOUNTER 2018-07-25 14:30 | Emergency (ER) | payer MEDICARE ==
[2018-07-25 14:30] VITALS: BMI 24.1
--- NOTE | 2018-07-25 15:19 | C.PDOC ---
History Of Present Illness According to EMS, 53 years old [place] [address] [place], then his friends called 911 after they saw him "shaking and having a seizure as he was standing up." Denies LOC or any other complaints. Time Seen by Provider: 07/25/18 14:34 Chief Complaint (Nursing): Substance Abuse History Per: EMS History/Exam Limitations: no limitations (Patient being uncooperative) Onset/Duration Of Symptoms: Hrs Current Symptoms Are (Timing): Still Present Suicide/Self Injury Attempted (Context): None Modifying Factor(s): Alcohol Associated Symptoms: denies: Suicidal Thoughts, Suicidal Plan Involuntary Hold By: None Recent travel outside of the [place]: No Past Medical History Reviewed: Historical Data, Nursing Documentation, Vital Signs Vital Signs: Last Vital Signs Temp 97.8 F 07/25/18 15:15 Pulse 90 07/25/18 14:40 Resp 20 07/25/18 14:40 BP 116/68 07/25/18 14:40 Pulse Ox 95 07/25/18 14:40 - Medical History PMH: Anxiety, Arthritis (BACK; R FX 3RD FINGER), Asthma, Back Problems, Fractures (right hand), Seizures, Chronic Pain (LEG) - [facility] Procedures INSERTION OF INFUSION DEV INTO SUP VENA CAVA, PERC APPROACH (04/30/18) Family History: States: Unknown Family Hx - Social History Hx Tobacco Use: No Hx Alcohol Use: Yes Hx Substance Use: No - Immunization History Hx Tetanus Toxoid Vaccination: No Hx Influenza Vaccination: No Hx Pneumococcal Vaccination: No Review Of Systems Review Of Systems: ROS cannot be obtained secondary to pt's inabilty to answer questions. (Patient is being uncooperative) Physical Exam - Physical Exam Appears: Non-toxic, No Acute Distress, Unkempt, Other (Uncooperative, not answering questions. ) Skin: Normal Color, Warm, Dry, No Rash Head: Atraumatic, Normacephalic Eye(s): bilateral: Normal Inspection, PERRL, EOMI Ear(s): Bilateral: Normal Oral Mucosa: Moist Neck: Normal ROM, Supple Chest: Symmetrical, No Tenderness Cardiovascular: Rhythm Regular, No Friction Rub, No Murmur Respiratory: Normal Breath Sounds, No Rales, No Rhonchi, No Wheezing Gastrointestinal/Abdominal: Bowel Sounds (Active ), Soft, No Tenderness Back: Normal Inspection, No CVA Tenderness Extremity: Normal ROM, No Swelling Extremity: Bilateral: Atraumatic, Normal Color And Temperature, Normal ROM Pulses: Left Radial: Normal, Right Radial: Normal Neurological/Psych: Other (Patient not answering questions. Opens eyes when shaking. ) ED Course And Treatment O2 Sat by Pulse Oximetry: 95 (RA) Pulse Ox Interpretation: Normal Progress Note: The patient has been resting comfortably in the ED. On re-exam, the patient has had normal speech. Ambulatory in the ED with steady gait. Lungs are CTA, heart is RRR, abdomen is soft, non-tender and tolerating PO well. Ambulatory in the ED with steady gait. Follow up with the medical doctor within 1-2 days. Return if worsened. Medical Decision Making Medical Decision Making: Plan: Blood work Disposition - Disposition Disposition: HOME/ ROUTINE Disposition Time: 18:20 Condition: STABLE Additional Instructions: Follow up with the medical doctor within 1-2 days. Return if worsened. Instructions: Alcohol Use - When Is Drinking a Problem? 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 - Scribe Statement The provider has reviewed the documentation as recorded by the Martinibjf Astorga All medical record entries made by the Martinibjf were at my direction and personally dictated by me. I have reviewed the chart and agree that the record accurately reflects my personal performance of the history, physical exam, medical decision making, and the department course for this patient. I have also personally directed, reviewed, and agree with the discharge instructions and disposition.
[2018-07-25 18:55] VITALS: BP 105/65; PULSE 80; RESP 18; TEMP 98; O2SAT 96
--- NOTE | 2018-07-26 19:49 | CARD ---
APPROVED REPORT Date of service: 07/25/2018 EKG Measurement Heart [id number] <Conclusion> Normal sinus rhythm with sinus arrhythmia Possible Left atrial enlargement Borderline ECG
== END 2018-07-25 18:59 | disposition home or self-care (01) ==
LOC: C.ER 14:30
DX: F10.10 Alcohol abuse, uncomplicated (principal); Z59.0 Homelessness

== ENCOUNTER 2018-07-26 16:32 | Emergency (ER) | payer MEDICARE ==
[2018-07-26 16:39] VITALS: BMI 25.8
--- NOTE | 2018-07-26 17:55 | C.PDOC ---
History Of Present Illness 53 y/o male brought in by EMS for public intoxication. Patient was found on the street, pants soaked with urine. On arrival to the ED patient is awake, but not answering questions secondary to intoxication. There is no obvious evidence of head trauma or other injury. <Robinson Mendez - Last Filed: 07/26/18 19:08> History Per: Patient History/Exam Limitations: intoxication Onset/Duration Of Symptoms: Hrs Current Symptoms Are (Timing): Still Present Modifying Factor(s): Alcohol Involuntary Hold By: None Additional History Per: EMS <Robinson Mendez - Last Filed: 07/26/18 19:08> <Donny Maldonado - Last Filed: 07/27/18 05:32> Time Seen by Provider: 07/26/18 16:34 Chief Complaint (Nursing): Substance Abuse Past Medical History Reviewed: Historical Data, Nursing Documentation, Vital Signs Vital Signs: Last Vital Signs Temp 97.9 F 07/26/18 17:12 Pulse 69 07/26/18 17:12 Resp BP 147/87 07/26/18 17:12 Pulse Ox 95 07/26/18 17:12 - Medical History PMH: Anxiety, Arthritis (BACK; R FX 3RD FINGER), Asthma, Back Problems, Fractures (right hand), Seizures, Chronic Pain (LEG) - [facility] Procedures INSERTION OF INFUSION DEV INTO SUP VENA CAVA, PERC APPROACH (04/30/18) Family History: States: Unknown Family Hx - Social History Hx Tobacco Use: No Hx Alcohol Use: Yes Hx Substance Use: No - Immunization History Hx Tetanus Toxoid Vaccination: No Hx Influenza Vaccination: No Hx Pneumococcal Vaccination: No <Robinson Mendez - Last Filed: 07/26/18 19:08> Vital Signs: Last Vital Signs Temp 98.0 F 07/27/18 03:51 Pulse 84 07/27/18 03:51 Resp 16 07/27/18 03:51 BP 100/87 07/27/18 03:51 Pulse Ox 99 07/27/18 03:51 - [facility] Procedures INSERTION OF INFUSION DEV INTO SUP VENA CAVA, PERC APPROACH (04/30/18) <Donny Maldonado - Last Filed: 07/27/18 05:32> Review Of Systems Review Of Systems: ROS cannot be obtained secondary to pt's inabilty to answer questions. <Robinson Mendez - Last Filed: 07/26/18 19:08> Physical Exam - Physical Exam Appears: Non-toxic, No Acute Distress, Unkempt Skin: Normal Color, Warm, No Rash Head: Atraumatic, Normacephalic Eye(s): bilateral: Normal Inspection Neck: Normal ROM Chest: Symmetrical Cardiovascular: Rhythm Regular, No Murmur Respiratory: Normal Breath Sounds, No Accessory Muscle Use Extremity: Bilateral: Atraumatic, Normal Color And Temperature, Other (moves all extremities) Pulses: Left Radial: Normal, Right Radial: Normal Neurological/Psych: Other (Awake, Appears intoxicated, +AOB) Gait: Unable To Assess <Robinson Mendez Last Filed: 07/26/18 19:08> ED Course And Treatment O2 Sat by Pulse Oximetry: 95 (RA) Pulse Ox Interpretation: Normal <Robinson Mendez Filed: 07/26/18 19:08> Pulse Ox Interpretation: Normal Reevaluation Time: 05:31 Reassessment Condition: Improved <Donny Maldonado - Last Filed: 07/27/18 05:32> Medical Decision Making Medical Decision Making: Impression: ETOH intoxication Plan: - BS FS is 97 - Will observe patient for clinical sobriety <Robinson Mendez Last Filed: 07/26/18 19:08> Disposition <Robinson Mendez Filed: 07/26/18 19:08> Counseled Patient/Family Regarding: Studies Performed, Diagnosis - Disposition Disposition Time: 19:00 <Donny Maldonado Last Filed: 07/27/18 05:32> - Disposition Referrals: [facility] [Outside] Disposition: HOME/ ROUTINE Condition: FAIR Instructions: Alcohol Abuse and Alcoholism (DC) Forms: [employer] (Kittitian) - Clinical Impression Clinical Impression: Alcohol intoxication - 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 - Scribe Statement The provider has reviewed the documentation as recorded by the Scribjf Kearns All medical record entries made by the Scribe were at my direction and personally dictated by me. I have reviewed the chart and agree that the record accurately reflects my personal performance of the history, physical exam, medical decision making, and the department course for this patient. I have also personally directed, reviewed, and agree with the discharge instructions and disposition. <Robinson Mendez Last Filed: 07/26/18 19:08> Physician Patient Turnover Patient Signed Over To: Donny Maldonado Handoff Comments: sobriety <Robinson Mendez - Last Filed: 07/26/18 19:08>
[2018-07-27 01:30] VITALS: RESP 16
[2018-07-27 03:53] VITALS: O2SAT 99
[2018-07-27 05:42] VITALS: BP 101/79; PULSE 85; TEMP 98.1
== END 2018-07-27 05:41 | disposition home or self-care (01) ==
LOC: C.ER 16:32
DX: F10.129 Alcohol abuse with intoxication, unspecified (principal); Y90.9 Presence of alcohol in blood, level not specified

== ENCOUNTER 2018-07-27 15:53 | Emergency (ER) | payer MEDICARE ==
--- NOTE | 2018-07-27 16:56 | C.PDOC ---
History Of Present Illness 53 year old male is brought to the ED by ambulance after he was found publicly intoxicated prior to arrival. Patient is familiar to this ED and has had multiple prior evaluations for the same. He admits to drinking earlier today and offers no physical complaints at this time. Time Seen by Provider: 07/27/18 16:54 Chief Complaint (Nursing): Substance Abuse History Per: Patient, EMS History/Exam Limitations: intoxication Onset/Duration Of Symptoms: Hrs Current Symptoms Are (Timing): Still Present Suicide/Self Injury Attempted (Context): None Modifying Factor(s): Alcohol Associated Symptoms: denies: Suicidal Thoughts, Suicidal Plan Involuntary Hold By: None Recent travel outside of the [place]: No Additional History Per: Patient, EMS Past Medical History Reviewed: Historical Data, Nursing Documentation, Vital Signs - Medical History PMH: Anxiety, Arthritis (BACK; R FX 3RD FINGER), Asthma, Back Problems, Fractures (right hand), Seizures, Chronic Pain (LEG) Surgical History: No Surg Hx - [facility] Procedures INSERTION OF INFUSION DEV INTO SUP VENA CAVA, PERC APPROACH (04/30/18) Family History: States: Unknown Family Hx - Social History Hx Tobacco Use: No Hx Alcohol Use: Yes Hx Substance Use: No - Immunization History Hx Tetanus Toxoid Vaccination: No Hx Influenza Vaccination: No Hx Pneumococcal Vaccination: No Review Of Systems Psych: Positive for: Other (alcohol intoxication ). Negative for: Suicidal ideation Physical Exam - Physical Exam Appears: Non-toxic, No Acute Distress, Other (visibly intoxicated) Skin: Normal Color, Warm, Dry Head: Atraumatic, Normacephalic Eye(s): bilateral: Normal Inspection, PERRL, EOMI Ear(s): Bilateral: Normal Nose: Normal, No Flaring, No Discharge Oral Mucosa: Moist, Other (alcohol on breath ) Tongue: Normal Appearing Lips: Normal Appearing Teeth: Normal Dentition Gingiva: Normal Appearing Throat: Normal, No Erythema, No Exudate Neck: Normal, Normal ROM, No Midline Cervical Tenderness, Supple, Other (no meningeal signs) Lymphatic: Normal Exam Chest: Symmetrical, No Deformity Cardiovascular: Rhythm Regular Respiratory: No Accessory Muscle Use Gastrointestinal/Abdominal: Normal Exam Back: Normal Inspection, No CVA Tenderness, No Vertebral Tenderness Extremity: Normal ROM Neurological/Psych: Oriented x3, Normal Speech, Normal Cognition, Other (arousable to touch and verbal stimuli ) Medical Decision Making Medical Decision Making: No cauda equina signs or symptoms. No signs of trauma 1000 endorsed to pt to cut down on etoh use clincally sober, basline gait clear for d/c home no signs of withdrawal Disposition - Disposition Referrals: [facility] [Outside] [facility] [Outside] [facility] [Outside] [facility] [Outside] Disposition: HOME/ ROUTINE Disposition Time: 22:01 Condition: GOOD Additional Instructions: JOSE ALBERTO ALBERTO, thank you for letting us take care of you today. Your provider was Jose Manuel Monroy and you were treated for SUBSTANCE ABUSE. The emergency medical care you received today was directed at your acute symptoms. If you were prescribed any medication, please fill it and take as directed. It may take several days for your symptoms to resolve. Return to the Emergency Department if your symptoms worsen, do not improve, or if you have any other problems. Please contact your doctor or call one of the physicians/clinics you have been referred to that are listed on the Patient Visit Information form that is included in your discharge packet. Bring any paperwork you were given at discharge with you along with any medications you are taking to your follow up visit. Our treatment cannot replace ongoing medical care by a primary care provider outside of the emergency department. Thank you for allowing the [facility] team to be part of your care today. If you had an X-Ray or CT scan: A Radiologist will review the ED reading if any change in treatment is needed we will contact you. If you had a blood, urine, or wound culture: It will take several days for the results, if any change in treatment is needed we will contact you. If you had an STI test: It will take 48 hours for the results. Please call after 1 week if you have not heard back. Instructions: Alcohol Use - When Is Drinking a Problem?, Effects of Alcohol on Your Health Forms: [facility] (Sami) - Clinical Impression Clinical Impression: Alcohol intoxication - Scribe Statement The provider has reviewed the documentation as recorded by the Scribe (Iris Kenney) Provider Attestation: All medical record entries made by the Scribe were at my direction and personally dictated by me. I have reviewed the chart and agree that the record accurately reflects my personal performance of the history, physical exam, medical decision making, and the department course for this patient. I have also personally directed, reviewed, and agree with the discharge instructions and disposition.
[2018-07-27 17:15] VITALS: BMI 24.3
[2018-07-27 23:15] VITALS: BP 150/88; PULSE 76; RESP 18; TEMP 97.9; O2SAT 97
== END 2018-07-27 23:13 | disposition home or self-care (01) ==
LOC: C.ER 15:53
DX: F10.129 Alcohol abuse with intoxication, unspecified (principal)

== ENCOUNTER 2018-07-28 22:31 | Emergency (ER) | payer MEDICARE ==
[2018-07-28 22:34] VITALS: BMI 24.3
--- NOTE | 2018-07-28 23:04 | C.PDOC ---
History Of Present Illness 53 year old male presents with acute ETOH intoxication. Admits to drinking tonight. Denies any complaints at this time. Time Seen by Provider: 07/28/18 22:40 Chief Complaint (Nursing): Substance Abuse History Per: Patient History/Exam Limitations: no limitations Onset/Duration Of Symptoms: Hrs Current Symptoms Are (Timing): Still Present Suicide/Self Injury Attempted (Context): None Modifying Factor(s): Alcohol Involuntary Hold By: None Recent travel outside of the [place]: No Past Medical History Reviewed: Historical Data, Nursing Documentation, Vital Signs Vital Signs: Last Vital Signs Temp 98.4 F 07/28/18 22:47 Pulse 81 07/28/18 22:47 Resp 20 07/28/18 22:47 BP 138/82 07/28/18 22:47 Pulse Ox 96 07/28/18 22:47 - Medical History PMH: Anxiety, Arthritis (BACK; R FX 3RD FINGER), Asthma, Back Problems, Fractures (right hand), Seizures, Chronic Pain (LEG) - [facility] Procedures INSERTION OF INFUSION DEV INTO SUP VENA CAVA, PERC APPROACH (04/30/18) Family History: States: Unknown Family Hx - Social History Hx Tobacco Use: No Hx Alcohol Use: Yes Hx Substance Use: No - Immunization History Hx Tetanus Toxoid Vaccination: No Hx Influenza Vaccination: No Hx Pneumococcal Vaccination: No Review Of Systems Constitutional: Negative for: Fever, Chills Cardiovascular: Negative for: Chest Pain, Palpitations Respiratory: Negative for: Cough, Shortness of Breath Gastrointestinal: Negative for: Nausea, Vomiting Neurological: Negative for: Weakness, Numbness Physical Exam - Physical Exam Appears: Non-toxic, Other (ETOH on breath, no sign of injury) Skin: Normal Color, Warm, Dry Head: Atraumatic, Normacephalic Eye(s): bilateral: Normal Inspection Oral Mucosa: Moist Chest: Symmetrical, No Tenderness Cardiovascular: Rhythm Regular Respiratory: Normal Breath Sounds, No Rales, No Rhonchi, No Wheezing Gastrointestinal/Abdominal: Soft, No Tenderness Neurological/Psych: Oriented x3, Normal Speech ED Course And Treatment O2 Sat by Pulse Oximetry: 96 (Room air) Pulse Ox Interpretation: Normal Medical Decision Making Medical Decision Making: alcohol abuse - no acute medical issues pt observed overnight slept entire ed course in nad. in am steady gait stable for dc no medical complaint Disposition - Disposition Referrals: Alcoholics Anonymous [Outside] Disposition: HOME/ ROUTINE Disposition Time: 05:30 Condition: STABLE Instructions: Alcohol Abuse and Alcoholism (DC) Forms: [facility] (Guamanian) - Clinical Impression Clinical Impression: Alcohol intoxication - Scribe Statement The provider has reviewed the documentation as recorded by the Scribe Ahmet Hobson All medical record entries made by the Scribe were at my direction and personally dictated by me. I have reviewed the chart and agree that the record accurately reflects my personal performance of the history, physical exam, medical decision making, and the department course for this patient. I have also personally directed, reviewed, and agree with the discharge instructions and disposition.
[2018-07-29 04:16] VITALS: RESP 16
[2018-07-29 05:30] VITALS: BP 130/78; PULSE 76; TEMP 98.1
[2018-07-29 05:35] VITALS: O2SAT 96
== END 2018-07-29 05:28 | disposition home or self-care (01) ==
LOC: C.ER 22:31
DX: F10.129 Alcohol abuse with intoxication, unspecified (principal); Y90.9 Presence of alcohol in blood, level not specified

== ENCOUNTER 2018-07-29 13:46 | Emergency (ER) | payer MEDICARE | END 2018-07-29 18:40 | disposition home or self-care (01) | LOC: C.ER 13:46 ==

== ENCOUNTER 2018-07-30 15:54 | Emergency (ER) | payer MEDICARE | END 2018-07-31 05:36 | disposition home or self-care (01) | LOC: C.ER 15:54 ==

== ENCOUNTER 2018-07-31 14:30 | Emergency (ER) | payer MEDICARE ==
[2018-07-31 14:30] VITALS: BMI 24.1
[2018-07-31 14:37] VITALS: RESP 20; TEMP 97.3
--- NOTE | 2018-07-31 16:09 | C.PDOC ---
History Of Present Illness 53 year old brought via EMS for public intoxication. Pt stays in the ED almost daily. Last night the pt had a head CT, making it his 9th head CT. Pt offers no medical complaints at this time. Time Seen by Provider: 07/31/18 14:36 Chief Complaint (Nursing): Substance Abuse History Per: Patient History/Exam Limitations: intoxication Recent travel outside of the [place]: No Past Medical History Reviewed: Historical Data, Nursing Documentation, Vital Signs Vital Signs: Last Vital Signs Temp 97.3 F L 07/31/18 14:36 Pulse 77 07/31/18 14:36 Resp 20 07/31/18 14:36 BP 121/75 07/31/18 14:36 Pulse Ox 95 07/31/18 14:36 - Medical History PMH: Anxiety, Arthritis (BACK; R FX 3RD FINGER), Asthma, Back Problems, Fractures (right hand), Seizures, Chronic Pain (LEG) - [facility] Procedures INSERTION OF INFUSION DEV INTO SUP VENA CAVA, PERC APPROACH (04/30/18) Family History: States: Unknown Family Hx - Social History Hx Tobacco Use: No Hx Alcohol Use: Yes Hx Substance Use: No - Immunization History Hx Tetanus Toxoid Vaccination: (unk) Hx Influenza Vaccination: (unk) Hx Pneumococcal Vaccination: (unk) Review Of Systems Except As Marked, All Systems Reviewed And Found Negative. Constitutional: Positive for: Other (public intoxication. ) Physical Exam - Physical Exam Appears: Non-toxic, No Acute Distress Skin: Warm, Dry Head: Atraumatic, Normacephalic Eye(s): bilateral: Normal Inspection Oral Mucosa: Moist Neck: Normal ROM, Supple Cardiovascular: Rhythm Regular, No Murmur Respiratory: Normal Breath Sounds, No Rales, No Rhonchi, No Wheezing Gastrointestinal/Abdominal: Normal Exam, Soft, No Tenderness Extremity: Bilateral: Atraumatic, Normal Color And Temperature, Normal ROM Neurological/Psych: Oriented x3, Normal Speech, Normal Cognition ED Course And Treatment O2 Sat by Pulse Oximetry: 95 (RA) Pulse Ox Interpretation: Normal Reevaluation Time: 17:54 Reassessment Condition: Improved (easiliy arousable, conversant) Medical Decision Making Medical Decision Making: Initial plan: -Glucose homeless, alcohol abuse Disposition Doctor Will See Patient In The: Office Counseled Patient/Family Regarding: Studies Performed, Diagnosis - Disposition Disposition: HOME/ ROUTINE Disposition Time: 17:55 Condition: GOOD Forms: [facility] (Spanish) - Clinical Impression Clinical Impression: Alcohol abuse - Scribe Statement The provider has reviewed the documentation as recorded by the Scribe (Jazmine Huitron) Provider Attestation: All medical record entries made by the Scribe were at my direction and personally dictated by me. I have reviewed the chart and agree that the record accurately reflects my personal performance of the history, physical exam, medical decision making, and the department course for this patient. I have also personally directed, reviewed, and agree with the discharge instructions and disposition.
[2018-07-31 17:02] VITALS: BP 100/65; PULSE 84
[2018-07-31 17:55] VITALS: O2SAT 95
== END 2018-07-31 18:00 | disposition home or self-care (01) ==
LOC: C.ER 14:30
DX: F10.10 Alcohol abuse, uncomplicated (principal)

== ENCOUNTER 2018-08-02 17:17 | Emergency (ER) | payer MEDICARE ==
[2018-08-02 17:17] VITALS: BMI 24.1
--- NOTE | 2018-08-02 18:23 | C.PDOC ---
History Of Present Illness Patient is a 53 year old male, biba to the the ED for public intoxication. Patient admits to drinking today. He denies any SI/HI, hallucinations, CP, SOB, or other medical complaints at the present moment. <Rosie Hong - Last Filed: 08/02/18 19:05> History Per: Patient, EMS History/Exam Limitations: no limitations Suicide/Self Injury Attempted (Context): None Modifying Factor(s): Alcohol Associated Symptoms: denies: Suicidal Thoughts, Suicidal Plan Involuntary Hold By: None Recent travel outside of the [place]: No Additional History Per: Patient, EMS <Rosie Hong - Last Filed: 08/02/18 19:05> <Donny Maldonado - Last Filed: 08/03/18 05:33> Time Seen by Provider: 08/02/18 17:27 Chief Complaint (Nursing): Substance Abuse Past Medical History Reviewed: Historical Data, Nursing Documentation, Vital Signs Vital Signs: Last Vital Signs Temp 97.3 F L 08/02/18 17:19 Pulse 75 08/02/18 17:19 Resp 20 08/02/18 17:19 BP 114/71 08/02/18 17:19 Pulse Ox 97 08/02/18 17:19 - Medical History PMH: Anxiety, Arthritis (BACK; R FX 3RD FINGER), Asthma, Back Problems, Fractures (right hand), Seizures, Chronic Pain (LEG) Surgical History: No Surg Hx - [facility] Procedures INSERTION OF INFUSION DEV INTO SUP VENA CAVA, PERC APPROACH (04/30/18) Family History: States: Unknown Family Hx - Social History Hx Tobacco Use: No Hx Alcohol Use: Yes Hx Substance Use: No - Immunization History Hx Tetanus Toxoid Vaccination: (unk) Hx Influenza Vaccination: (unk) Hx Pneumococcal Vaccination: (unk) <Rosie Hong - Last Filed: 08/02/18 19:05> Vital Signs: Last Vital Signs Temp 98.8 F 08/03/18 05:26 Pulse 92 H 08/03/18 05:26 Resp 16 08/03/18 05:26 BP 131/81 08/03/18 05:26 Pulse Ox 96 08/03/18 05:26 - [facility] Procedures INSERTION OF INFUSION DEV INTO SUP VENA CAVA, PERC APPROACH (04/30/18) <Donny Maldonado - Last Filed: 08/03/18 05:33> Review Of Systems Cardiovascular: Negative for: Chest Pain Respiratory: Negative for: Shortness of Breath Psych: Negative for: Suicidal ideation, Other (homicidal ideation, hallucinations ) <Rosie Hong - Last Filed: 08/02/18 19:05> Physical Exam - Physical Exam Appears: Non-toxic, No Acute Distress Skin: Normal Color, Warm, Dry Head: Atraumatic, Normacephalic Oral Mucosa: Moist Neck: Supple Extremity: Normal ROM Neurological/Psych: Oriented x3 <Rosie Hong - Last Filed: 08/02/18 19:05> ED Course And Treatment O2 Sat by Pulse Oximetry: 97 (on RA) Pulse Ox Interpretation: Normal Progress Note: Plan: Labs <Rosie Hong - Last Filed: 08/02/18 19:05> Pulse Ox Interpretation: Normal Reevaluation Time: 05:33 Reassessment Condition: Improved <Donny Maldonado - Last Filed: 08/03/18 05:33> Disposition - Disposition Disposition Time: 19:05 <Rosie Hong - Last Filed: 08/02/18 19:05> Counseled Patient/Family Regarding: Studies Performed, Diagnosis, Need For Followup <Donny Maldonado - Last Filed: 08/03/18 05:33> - Disposition Referrals: [facility] [Outside] Disposition: HOME/ ROUTINE Condition: STABLE Instructions: Alcohol Abuse and Alcoholism (DC) Forms: [facility] (Bulgarian) - Clinical Impression Clinical Impression: Alcohol intoxication - PA / [employer] / Resident Statement MD/DO has examined the patient and agrees with the treatment plan. - Scribe Statement The provider has reviewed the documentation as recorded by the Gricelda Isaac All medical record entries made by the Gricelda were at my direction and personally dictated by me. I have reviewed the chart and agree that the record accurately reflects my personal performance of the history, physical exam, medical decision making, and the department course for this patient. I have also personally directed, reviewed, and agree with the discharge instructions and disposition. <Rosie Hong - Last Filed: 08/02/18 19:05> Physician Patient Turnover Patient Signed Over To: Donny Maldonado Handoff Comments: waiting for sobriety <Rosie Hong - Last Filed: 08/02/18 19:05>
[2018-08-03 01:42] VITALS: O2SAT 96
[2018-08-03 05:28] VITALS: BP 131/81; PULSE 92; RESP 16; TEMP 98.8
== END 2018-08-03 05:39 | disposition home or self-care (01) ==
LOC: C.ER 17:17
DX: F10.129 Alcohol abuse with intoxication, unspecified (principal)

== ENCOUNTER 2018-08-03 19:26 | Emergency (ER) | payer MEDICARE | END 2018-08-04 05:32 | disposition home or self-care (01) | LOC: C.ER 19:26 | DX: F10.129 Alcohol abuse with intoxication, unspecified (principal); Y90.9 Presence of alcohol in blood, level not specified ==

== ENCOUNTER 2018-08-04 19:36 | Emergency (ER) | payer MEDICARE | END 2018-08-05 05:30 | disposition home or self-care (01) | LOC: C.ER 08-05 05:30 ==

== ENCOUNTER 2018-08-05 19:34 | Emergency (ER) | payer MEDICARE | END 2018-08-05 23:50 | disposition home or self-care (01) | LOC: C.ER 23:50 ==

== ENCOUNTER 2018-08-06 20:43 | Emergency (ER) | payer MEDICARE ==
--- NOTE | 2018-08-06 20:51 | C.PDOC ---
History Of Present Illness 53 year old male is brought to the ED by EMS for public intoxication. Patient was found by EM sin the street sleeping, with alcohol on breath. Patient denies SI/HI, hallucinations, injury, fall, trauma. Time Seen by Provider: 08/06/18 20:50 History Per: Patient, EMS History/Exam Limitations: intoxication Onset/Duration Of Symptoms: Hrs Current Symptoms Are (Timing): Still Present Suicide/Self Injury Attempted (Context): None Modifying Factor(s): Alcohol Associated Symptoms: denies: Depression, Suicidal Thoughts, Suicidal Plan Recent travel outside of the [place]: No Additional History Per: Patient, EMS Past Medical History Reviewed: Historical Data, Nursing Documentation, Vital Signs - Medical History PMH: Anxiety, Arthritis (BACK; R FX 3RD FINGER), Asthma, Back Problems, Fractures (right hand), Seizures, Chronic Pain (LEG) Surgical History: No Surg Hx - [facility] Procedures INSERTION OF INFUSION DEV INTO SUP VENA CAVA, PERC APPROACH (04/30/18) Family History: States: Unknown Family Hx - Social History Hx Tobacco Use: No Hx Alcohol Use: Yes Hx Substance Use: Yes - Immunization History Hx Tetanus Toxoid Vaccination: No (unk) Hx Influenza Vaccination: No (unk) Hx Pneumococcal Vaccination: No (unk) Review Of Systems Review Of Systems: ROS cannot be obtained secondary to pt's inabilty to answer questions. (intoxication) Physical Exam - Physical Exam Appears: Non-toxic, Other (intoxicated, arousable to strong stimuli) Skin: Warm, Dry Head: Normacephalic Eye(s): bilateral: Normal Inspection Neck: Supple Chest: Symmetrical Cardiovascular: Rhythm Regular Respiratory: No Rales, No Rhonchi, No Wheezing Gastrointestinal/Abdominal: Soft, No Tenderness, No Guarding, No Rebound Extremity: Bilateral: Atraumatic, Normal Color And Temperature, Normal ROM Neurological/Psych: Oriented x3, Other (intoxicated) Gait: Unable To Assess ED Course And Treatment - Laboratory Results Result Diagrams: 08/06/18 21:22 08/06/18 21:22 O2 Sat by Pulse Oximetry: 96 Pulse Ox Interpretation: Normal Progress Note: Plan: - Labs. - UA. - IV fluids Reevaluation Time: 05:25 Reassessment Condition: Improved Disposition Counseled Patient/Family Regarding: Studies Performed, Diagnosis, Need For Followup - Disposition Referrals: [facility] [Outside] Disposition: HOME/ ROUTINE Disposition Time: 20:50 Condition: FAIR Instructions: Alcohol Abuse and Alcoholism (DC) - Clinical Impression Clinical Impression: Alcohol intoxication - Scribe Statement The provider has reviewed the documentation as recorded by the Scribe Titus Soler All medical record entries made by the Scribe were at my direction and personally dictated by me. I have reviewed the chart and agree that the record accurately reflects my personal performance of the history, physical exam, medical decision making, and the department course for this patient. I have also personally directed, reviewed, and agree with the discharge instructions and disposition.
[2018-08-06] MEDS ORDERED: Sodium Chloride 0.9% 2,000 ML IV ONE (20:56)
[2018-08-06 20:59] VITALS: BMI 25.1
[2018-08-06 21:26] LABS: BASO % 0.7 % (0.0-2.0); EOS # 0.1 K/uL (0.0-0.7); EOS % 2.4 % (0.0-4.0); HEMOGLOBIN 14.4 g/dL (12.0-18.0); LYMPH # 1.9 K/uL (1.0-4.3); LYMPH % 51.2 % (20.0-40.0); MEAN CELL VOLUME 103.5 fL (80.0-94.0); MEAN CORPUSCULAR HEMOGLOBIN 34.4 pg (27.0-31.0); MEAN CORPUSCULAR HGB CONC 33.2 g/dL (33.0-37.0); MEAN PLATELET VOLUME 8.1 fL (7.2-11.7); MONO # 0.5 K/uL (0.0-0.8); MONO % 13.2 % (0.0-10.0); NEUT # 1.2 K/uL (1.8-7.0); NEUT % 32.5 % (50.0-75.0); RBC 4.17 Mil/uL (4.40-5.90); RED CELL DISTRIBUTION WIDTH 14.9 % (11.5-14.5); WHITE BLOOD COUNT 3.8 K/uL (4.8-10.8)
[2018-08-06 21:28] LABS: URINE BILIRUBIN NEGATIVE (NEGATIVE); URINE BLOOD 1+ (NEGATIVE); URINE CLARITY Clear (Clear); URINE COLOR Straw (YELLOW); URINE GLUCOSE (UA) NORMAL (Normal); URINE LEUKOCYTE ESTERASE NEG Leu/uL (Negative); URINE PROTEIN NEGATIVE (NEGATIVE); URINE UROBILINOGEN NORMAL mg/dL (0.2-1.0)
[2018-08-06 21:49] LABS: BARBITURATES, UR NEGATIVE (NEGATIVE); BENZODIAZEPINES, UR NEGATIVE (NEGATIVE); OPIATES, UR NEGATIVE (NEGATIVE); PHENCYCLIDINE, UR NEGATIVE (NEGATIVE)
[2018-08-06 21:54] LABS: ALB/GLOB RATIO 1.1 (1.0-2.1); ALBUMIN 4.4 g/dL (3.5-5.0); ALT/SGPT 35 U/L (21-72); AST/SGOT 93 U/L (17-59); BLOOD UREA NITROGEN 16 mg/dL (9-20); GFR NON-AFRICAN AMERICAN > 60
[2018-08-07 06:02] VITALS: BP 121/72; PULSE 85; RESP 19; TEMP 98.1; O2SAT 97
== END 2018-08-07 06:01 | disposition home or self-care (01) ==
LOC: C.ER 20:43
DX: F10.129 Alcohol abuse with intoxication, unspecified (principal); Y90.8 Blood alcohol level of 240 mg/100 ml or more
CPT/HCPCS: 80053; 80320; 80324; 80345; 80346; 80349; 80353; 80358; 80361; 81001; 82948; 83735; 83992; 84100; 85025; 96360; 96361; 99285; J7030